=== PATIENT | male | born 1935 | race Caucasian/White ===

== ENCOUNTER 2017-07-23 13:18 | Inpatient (IN) | payer MEDICARE, OTHER ==
[~2017-07-23] VITALS: Ht 175.3 cm; Wt 75.0 kg
[2017-07-23 13:32] VITALS: Ht 175.3 cm; Wt 75.0 kg
[2017-07-23] MEDS: SOD CHLORIDE 0.9% 1,000 ML IV STA ×2 (13:37→16:14)
[2017-07-23 14:02] LABS: BASOPHILS % 0.1 % (0.0-2.0); EOSINOPHILS # 0.1 10^3/ul (0.0-0.5); EOSINOPHILS % 0.9 % (0.0-7.0); HEMATOCRIT 23.9 % (42.0-52.0); LYMPHOCYTES # 0.9 10^3/ul (0.8-2.9); LYMPHOCYTES % 9.9 % (15.0-51.0); MEAN CORPUSCULAR HEMOGLOBIN 27.7 pg (29.0-33.0); MEAN CORPUSCULAR HGB CONC 33.5 g/dl (32.0-37.0); MEAN CORPUSCULAR VOLUME 82.7 fl (82.0-101.0); MEAN PLATELET VOLUME 9.6 fl (7.4-10.4); MONOCYTE # 0.6 10^3/ul (0.3-0.9); MONOCYTES % 6.9 % (0.0-11.0); NEUTROPHIL # 7.1 10^3/ul (1.6-7.5); NEUTROPHILS % 81.5 % (39.0-77.0); PLATELET COUNT 288 10^3/UL (140-415); RED BLOOD COUNT 2.89 10^6/ul (4.70-6.10); RED CELL DISTRIBUTION WIDTH 15.3 % (11.5-14.5); WHITE BLOOD COUNT 8.7 10^3/ul (4.8-10.8)
[2017-07-23 14:18] LABS: INR 1.13; PROTIME 14.7 Sec (11.9-14.9); PT RATIO 1.1
[2017-07-23 14:19] LABS: PARTIAL THROMBOPLASTIN TIME 35.6 Sec (25.0-35.0)
[2017-07-23 14:20] LABS: CREATININE 3.67 mg/dl (0.61-1.24); POTASSIUM 4.5 mmol/L (3.5-5.1)
[2017-07-23 14:32] LABS: TROPONIN-I 0.107 ng/ml (0.00-0.12)
--- NOTE | 2017-07-23 14:48 | RADRPT ---
PROCEDURE: XR Chest. CLINICAL INDICATION: Syncope. TECHNIQUE: Single frontal view. COMPARISON: None. FINDINGS: There is atelectasis at the lung bases. The lungs are otherwise clear. The heart is enlarged. There is calcification in the aorta consistent with atherosclerosis. There are small bilateral pleural effusions. There is no pneumothorax. IMPRESSION: 1. Atelectasis at the lung bases. 2. Cardiomegaly and atherosclerosis. 3. Small bilateral pleural effusions. 4. Otherwise unremarkable chest radiograph. RPTAT: QQ .Rogers Vaughn MD, MD Date Time Electronically viewed and signed by .Rogers Vaughn MD, MD on 07/23/2017 14:47 .R/
[2017-07-23] MEDS ORDERED: RANI150T5 PO (16:08)
[2017-07-23] MEDS ORDERED: GLYB5TAB3 PO (16:08)
[2017-07-23] MEDS ORDERED: TAMS0.4C2 PO (16:09)
[2017-07-23] MEDS ORDERED: SITA1TBM7 PO (16:10)
[2017-07-23] MEDS ORDERED: CANA300T PO (16:10)
[2017-07-23] MEDS ORDERED: LIDOCAINE 1% (MPF) 5 ML VIAL SC ONE (16:30)
[2017-07-23 16:38] LABS: ADD UMIC YES; UR ASCORBIC ACID NEGATIVE (NEGATIVE); UR BILIRUBIN (Dip) NEGATIVE (NEGATIVE); UR BLOOD (Dip) 1+ mg/dL (NEGATIVE); UR CLARITY TURBID (CLEAR); UR COLOR YELLOW (YELLOW); UR GLUCOSE (Dip) NEGATIVE (NEGATIVE); UR KETONES (Dip) NEGATIVE (NEGATIVE); UR LEUKOCYTE ESTERASE (Dip) 1+ Leu/ul (NEGATIVE); UR NITRITE (Dip) NEGATIVE (NEGATIVE); UR SPECIFIC GRAVITY (Dip) 1.012 (1.003-1.030); UR TOTAL PROTEIN (Dip) 2+ mg/dl (NEGATIVE); UR UROBILINOGEN (Dip) NEGATIVE (NEGATIVE)
[2017-07-23 16:43] LABS: UR BACTERIA MANY /HPF (NONE SEEN); UR SQUAMOUS EPITHELIAL CELL MANY /HPF (FEW)
[2017-07-23 16:47] LABS: UR RBC > 182 /HPF (0-5)
[2017-07-23] MEDS ORDERED: LEVOFLOXACIN 500MG/D5W (PMX) 100 ML IVPB STA (17:44)
[2017-07-23] MEDS ORDERED: CEFEPIME 2GM/50 ML (PMX) 50 ML IVPB STA (17:44)
[2017-07-23] MEDS ORDERED: SOD CHLORIDE 0.9% 1,000 ML IV STA (17:45)
--- NOTE | 2017-07-23 18:08 | ERD ---
ER Documentation Chief Complaint Chief Complaint pt was dizzy and fell HPI This 82-year-old male who is here for follow-up. The patient states he got up was walking across the room when he got dizzy and fell. He said he fell on the carpet hitting his forehead. The patient recalls the feeling of falling as well as hitting the floor. He says he does not think he was knocked unconscious but if he was of may be just for 1 or 2 seconds. Denies any headache neck pain cough fever abdominal pain chest pain shortness of breath. He is a very poor historian. ROS All systems reviewed and are negative except as per history of present illness. Medications Home Meds Reported Medications Canagliflozin (Invokana) 300 Mg Tablet, 300 MG PO DAILY, TAB 07/23/17 Sitagliptin Phos-Metformin Hcl (Janumet XR) 100-1,000 Mg Tbmp.24hr, 1 TAB PO WITH DINNER, #30 TAB 07/23/17 Tamsulosin Hcl* (Tamsulosin Hcl*) 0.4 Mg Cap.er.24h, 0.4 MG PO DAILY, CAP 07/23/17 Ranitidine Hcl* (Ranitidine Hcl*) 150 Mg Tablet, 150 MG PO HS, #30 TAB 07/23/17 Glyburide* (Glyburide*) 5 Mg Tablet, 5 MG PO WITH BREAKFAST, #30 TAB 07/23/17 Allergies Allergies: Coded Allergies: No Known Allergy (Unverified , 07/23/17) PMhx/Soc Medical and Surgical Hx: pt denies Surgical Hx Hx Alcohol Use: No Hx Substance Use: No Hx Tobacco Use: No Smoking Status: Former smoker FmHx Family History: No coronary disease Physical Exam Vitals Vital Signs Date Time Temp Pulse Resp B/P Pulse Ox O2 Delivery O2 Flow Rate FiO2 07/23/17 18:25 98.8 57 18 81/53 Room Air 57 07/23/17 17:25 82 18 75/50 97 Room Air 80 79/48 82 85/51 07/23/17 16:53 82 18 75/50 97 Room Air 80 79/48 82 85/51 07/23/17 14:03 98.0 89 18 89/44 100 Room Air 07/23/17 13:32 97.8 95 18 84/55 97 Physical Exam Const: Well-developed, well-nourished Head: Carpet burn abrasion to the forehead normocephalic Eyes: Normal Conjunctiva, PERRLA, EOMI, normal sclera, no nystagmus ENT: Normal External Ears, Nose and Mouth, moist mucus membranes. Neck: Full range of motion. No meningismus, no lymphadenopathy. Resp: Clear to auscultation bilaterally, no wheezing, rhonchi, rales Cardio: Regular rate and rhythm, no murmurs, S1 S2 present Abd: Soft, non tender x 4, non distended. Normal bowel sounds, no guarding or rebound, no pulsitile abdominal masses or bruits Skin: No petechiae or rashes, no ecchymosis , no maculopapular rash Back: No midline or flank tenderness Ext: No cyanosis, or edema, FROM x 4, normal inspection, neurovascularly intact x 4 Neur: Awake and alert, STR 5/5 x 4, sensation intact x 4, no focal findings, cerebellum intact Psych: Normal Mood and Affect Result Diagram: 07/23/17 1355 07/23/17 1355 Results 24 hrs Laboratory Tests Test 07/23/17 13:55 07/23/17 16:20 07/23/17 17:49 07/23/17 18:40 White Blood Count 8.710^3/ul Red Blood Count 2.8910^6/ul Hemoglobin 8.0g/dl Hematocrit 23.9% Mean Corpuscular Volume 82.7fl Mean Corpuscular Hemoglobin 27.7pg Mean Corpuscular Hemoglobin Concent 33.5g/dl Red Cell Distribution Width 15.3% Platelet Count 87701^3/UL Mean Platelet Volume 9.6fl Neutrophils % 81.5% Lymphocytes % 9.9% Monocytes % 6.9% Eosinophils % 0.9% Basophils % 0.1% Nucleated Red Blood Cells % 0.0/100WBC Neutrophils # 7.110^3/ul Lymphocytes # 0.910^3/ul Monocytes # 0.610^3/ul Eosinophils # 0.110^3/ul Basophils # 0.010^3/ul Nucleated Red Blood Cells # 0.010^3/ul Prothrombin Time 14.7Sec Prothrombin Time Ratio 1.1 INR International Normalized Ratio 1.13 Activated Partial Thromboplast Time 35.6Sec Sodium Level 127mmol/L Potassium Level 4.5mmol/L Chloride Level 97mmol/L Carbon Dioxide Level 19mmol/L Anion Gap 16 Blood Urea Nitrogen 71mg/dl Creatinine 3.67mg/dl Glucose Level 330mg/dl Calcium Level 8.0mg/dl Troponin I 0.107ng/ml Urine Color YELLOW Urine Clarity TURBID Urine pH 5.0 Urine Specific [place] 1.012 Urine Ketones NEGATIVEmg/dL Urine Nitrite NEGATIVEmg/dL Urine Bilirubin NEGATIVEmg/dL Urine Urobilinogen NEGATIVEmg/dL Urine Leukocyte Esterase 1+[place]ou/ul Urine Microscopic RBC > 182/HPF Urine Microscopic WBC > 182/HPF Urine Squamous Epithelial Cells MANY/HPF Urine Bacteria MANY/HPF Urine Hemoglobin 1+mg/dL Urine Glucose NEGATIVEmg/dL Urine Total Protein 2+mg/dl Bedside Glucose 291mg/dL Lactic Acid Level 2.9mmol/L Current Medications Medications (Trade) Dose Ordered Sig/[place] Route PRN Reason Start Time Stop Time Status Last Admin Dose Admin Sodium Chloride (NS) 1,000 ml @ 1,000 mls/hr Q1H STAT IV 07/23/17 13:37 07/23/17 14:36 DC 07/23/17 16:14 Lidocaine 5 ml 5 ml ONCE ONCE SC 07/23/17 16:30 07/23/17 16:31 DC Cefepime HCl 50 ml @ 100 mls/hr ONCE STAT IVPB 07/23/17 17:44 07/23/17 18:13 DC 07/23/17 18:24 Levofloxacin/ Dextrose 100 ml @ 100 mls/hr ONCE STAT IVPB 07/23/17 17:44 07/23/17 18:43 DC 07/23/17 19:22 Sodium Chloride (NS) 1,000 ml @ 1,000 mls/hr Q1H STAT IV 07/23/17 17:45 07/23/17 18:44 DC 07/23/17 18:09 Sodium Chloride (NS) 2,330 ml BOLUS OVER 2 HOURS STAT IV* 07/23/17 19:23 07/23/17 19:25 DC 07/23/17 19:48 Procedures/MDM PROCEDURE: XR Chest. CLINICAL INDICATION: Syncope. TECHNIQUE: Single frontal view. COMPARISON: None. FINDINGS: There is atelectasis at the lung bases. The lungs are otherwise clear. The heart is enlarged. There is calcification in the aorta consistent with atherosclerosis. There are small bilateral pleural effusions. There is no pneumothorax. IMPRESSION: 1. Atelectasis at the lung bases. 2. Cardiomegaly and atherosclerosis. 3. Small bilateral pleural effusions. 4. Otherwise unremarkable chest radiograph. RPTAT: QQ .Rogers Vaughn MD, MD Date Time Electronically viewed and signed by .Rogers Vaughn MD, MD on 07/23/2017 14:47 .R/ CC: OSIRIS CHINCHILLA DO EKG: Rate/Rhythm: Sinus rhythm with premature atrial complex, left axis deviation, right bundle branch block, Q-wave in lead III, aVR QRS, ST, QT: NORMAL MI, QRS, QT] Impression: NORMAL EKG Patient's urinalysis is pure pus. Patient is afebrile no white count do not feel he septic but will send off a lactic acid. We will continue fluid resuscitation the patient has some severe prerenal azotemia/dehydration. Orthostatics demonstrated all low blood pressures. Patient's blood pressure is 85 systolic after 1 L will give 1 more liter now We will admit for IV fluids antibiotic therapy and watch for sepsis develop Patient's lactate is 2.9 do not feel he is septic however. He has no fever no white count. Will admit him for severe urinary tract infection with near syncope. Does have severe prerenal azotemia/dehydration with renal failure. He received cultures and antibiotics and sepsis fluids Does not meet sepsis criteria. Departure Diagnosis: Primary Impression: Hypotension Hypotension type: unspecified hypotension type Qualified Code: I95.9 - Hypotension, unspecified hypotension type Additional Impressions: Urinary tract infection Urinary tract infection type: site unspecified Hematuria presence: without hematuria Qualified Code: N39.0 - Urinary tract infection without hematuria, site unspecified Renal failure Renal failure chronicity: unspecified chronicity Qualified Code: N19 - Renal failure, unspecified chronicity Condition: Fair OSIRIS CHINCHILLA DO Jul 23, 2017 18:08
[2017-07-23] MEDS ORDERED: SODIUM CHLORIDE 0.9% 1L BAG IV* STA (19:23)
[2017-07-23] MEDS ORDERED: SOD CHLORIDE 0.9% 1,000 ML IV SCH (20:09)
[2017-07-23] MEDS ORDERED: ACETAMINOPHEN 325 MG TAB PO PRN (20:30)
[2017-07-23] MEDS ORDERED: ONDANSETRON 4 MG INJ IV PRN (20:30)
[2017-07-23 22:21] VITALS: TEMP 98.1
[2017-07-23] MEDS ORDERED: LORAZEPAM 2 MG INJ IV ONE (22:30)
[2017-07-23 23:05] VITALS: PULSE 102
[2017-07-23 23:45] VITALS: BP 101/60; RESP 18
[2017-07-24] VITALS (10 sets, daily range): BP systolic 91–102; BP diastolic 52–62; PULSE 95–107; RESP 18–20
[2017-07-24] MEDS: SOD CHLORIDE 0.9% 1,000 ML IV SCH ×3 (02:02→22:57)
[2017-07-24] MEDS ORDERED: ACETAMINOPHEN 325 MG TAB PO PRN (05:30)
[2017-07-24] MEDS ORDERED: morphine 2 MG INJ IV PRN (05:30)
[2017-07-24] MEDS ORDERED: SOD CHLORIDE 0.9% 500 ML IV ONE (05:30)
[2017-07-24] MEDS ORDERED: NACL 0.9% 3 ML SYG IV SCH (05:30)
[2017-07-24] MEDS ORDERED: ONDANSETRON 4 MG INJ IV PRN (05:30)
--- NOTE | 2017-07-24 08:13 | RADRPT ---
PROCEDURE: CT Brain without contrast. CLINICAL INDICATION: Syncope. TECHNIQUE: A CT of the brain was performed on multidetector high-resolution CT scanner utilizing a xial sections from the skull base through the vertex without contrast. One or more of the following dose reduction techniques were used: Automated exposure control, Adjustment of the mA and/or kV acc ording to patient size, and/or use of iterative reconstruction technique. DICOM images are available . DOSE: CTDI = 43 mGy and the DLP = 720 mGy-cm. COMPARISON: None available FINDINGS: Left middle cranial fossa arachnoid cyst. Right temporal cortical encephalomalacia. Chronic bilatera l basal ganglia , left thalamic, and bilateral cerebellar lacunar infarcts. No acute intracranial he morrhage, significant mass effect or midline shift. Patchy hypoattenuation of the cerebral white mat ter is compatible with chronic microvascular ischemic changes. Vascular calcifications. Prominence o f the cortical sulci and ventricles are related to mild to moderate cerebral volume loss. No signif icant opacification of the visualized paranasal sinuses or mastoids. IMPRESSION: 1. No acute intracranial hemorrhage or mass effect. 2. 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 3. Right temporal cortical encephalomalacia is probably a sequela of prior trauma and/or infarct. 4. Chronic bilateral basal ganglia , left thalamic, and bilateral cerebellar lacunar infarcts. RPTAT: QQ .Rogers Vaughn MD, MD Date Time Electronically viewed and signed by .Rogers Vaughn MD, on 07/24/2017 08:12 .R/
[2017-07-24] MEDS ORDERED: CEFEPIME 1GM/50 ML (PMX) 50 ML IVPB SCH (09:00)
[2017-07-24] MEDS: HEPARIN 5,000 UNIT/0.5 ML VIAL SC SCH ×2 (09:12→20:30)
[2017-07-24] MEDS: INSULIN ASPART [NOVOLOG] 3 ML PEN SC SCH ×4 (09:13→20:27)
[2017-07-24] MEDS: INSULIN GLARGINE [LANtus] 3 ML PEN SC SCH (09:13)
--- NOTE | 2017-07-24 09:44 | RADRPT ---
PROCEDURE: Renal US. CLINICAL INDICATION: Renal dysfunction. TECHNIQUE: Multiple sonographic images of the kidneys and urinary bladder were obtained. The imag es were reviewed on a PACS workstation. COMPARISON: No prior studies are available for comparison. FINDINGS: The right kidney measures 11.0 x 4.0 x 5.0 cm. The left kidney measures 11.5 x 6.4 x 5.0 cm. There is no solid renal mass. There are benign left renal cysts with the largest measuring 3.1 cm in maximal dimension. There is no hydronephrosis. There is no right renal calculus. There are several nonobstructing left renal calculi with the large st measuring 0.5 cm. Renal parenchymal thickness is normal bilaterally. Both kidneys are hyperechoic consistent with medical renal disease. The perirenal regions are normal with no fluid collection or mass. There is a large amount of debris or blood products in the bladder. IMPRESSION: 1. Benign left renal cysts. 2. Nonobstructing left renal calculi. 3. Bilateral hyperechoic kidneys consistent with medical renal disease. 4. Large amount of debris or blood products in the bladder. RPTAT: QQ .Rogers Vaughn MD, Date Time Electronically viewed and signed by .Rogers Vaughn MD, MD on 07/24/2017 09:44 .R/
--- NOTE | 2017-07-24 09:48 | HP ---
Date/Time of Note Date/Time of Note DATE: 07/24/17 TIME: 09:38 Assessment/Plan VTE Prophylaxis VTE Prophylaxis Intervention: SCD's Lines/Catheters IV [facility]ter [facility]from [facility] Urinary Cath still in place: Yes Assessment/Plan Assessment/Plan 1. s/p fall, with superficial head injury -Patient was hypotensive on presentation to the ER and hemoglobin of 8. Patient denied hematemesis or dark stool or bright red blood per rectum -Plan is to continue IV fluid, a workup for a possible GI bleed and as such we will place a GI consult and check FOBT. We will also check for iron deficiency -Head CT was negative for any acute findings, will order a 2D echo and bilateral carotid Doppler ultrasound -Physical therapy evaluation -Treat UTI 2. Presumed acute kidney injury -IV fluid -Renal ultrasound and nephrology consult -Treat UTI -Continue Pagan and Flomax for his BPH 3. UTI -IV fluid -Follow-up culture results 4. Anemia -See #1 5. Type 2 diabetes -Check A1c Insulin while in-house 6. 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 He said he felt dizzy and as a result he fell down heating his forehead against the concrete. He denied loss of consciousness. He also denied focal weakness, chest pain, shortness of breath. When he presented to the ER, he was hypotensive with the lowest blood pressure documented being 79/48. Labs shows hemoglobin of 8, bicarb 19, creatinine 3.7 and a BUN 71. Initial lactic acid was 2.9 with repeat being 1.6. He denied history of kidney disease. His urine was noted to be pretty much all pus. Urinalysis is consistent with UTI. CT of the head was negative for acute findings. PMH/Family/Social Social History Smoking Status: Former smoker Exam/Review of Systems Vital Signs Vitals Vital Signs Date Time Temp Pulse Resp B/P Pulse Ox O2 Delivery O2 Flow Rate FiO2 07/24/17 08:13 97 07/24/17 08:04 97.5 18 96/52 95 07/23/17 22:21 Room Air Intake and Output 07/23/17 07/23/17 07/24/17 15:00 23:00 07:00 Intake Total 200 ml Balance 200 ml Exam Constitutional: other (Was a sleepy but fully arousable. Was answering questions appropriately even though slowly) Head: other (Swelling and erythema in the left forehead) Eyes: EOMI, PERRL Respiratory: clear to auscultation, normal air movement Cardiovascular: nl pulses, regular rate and rhythm Gastrointestinal: soft Extremities: normal pulses Neurological: nl strength Labs Result Diagram: 07/23/17 1355 07/23/17 1355 Medications Medications Current Medications Sodium Chloride (NS) 1,000 ml @ 100 mls/hr Q10H IV Last administered on 02:02; Admin Dose 100 MLS/HR; Start 07/24/17 at 02:00 Ondansetron HCl (Zofran Inj) 4 mg Q6H PRN IV NAUSEA AND/OR VOMITING; Start 07/24/17 at 05:30 Acetaminophen (Tylenol Tab) 650 mg Q6H PRN PO PAIN LEVEL 1-3 OR FEVER; Start 07/24/17 at 05:30 Morphine Sulfate (morphine) 2 mg Q4H PRN IV PAIN LEVEL 7-10; Start 07/24/17 at 05:30 Heparin Sodium (Porcine) (Heparin (5000 Units/0.5 ml)) 5,000 unit Q12 SC Last administered on 07/24/17 09:12; Admin Dose 5,000 UNIT; Start 07/24/17 at 09:00 Ranitidine HCl (Zantac) 150 mg HS PO ; Start 07/24/17 at 21:00 Tamsulosin HCl 0.4 mg 0.4 mg DAILY@21 PO ; Start 07/24/17 at 21:00 Cefepime HCl (Maxipime 1gm/50 ml (Pmx)) 50 ml @ 100 mls/hr Q12 IVPB Last administered on 07/24/17 09:08; Admin Dose 100 MLS/HR; Start 07/24/17 at 09:00 Diagnostic Test (Pha) (Accu-Chek) 1 ea 02 XX ; Start 07/25/17 at 02:00 Insulin Glargine (Lantus) 15 unit DAILY@08 SC Last administered on 12/6/17at 09 :13; Admin Dose 15 UNIT; Start 07/24/17 at 08:00 ARNOLD HUTCHISON MD Jul 24, 2017 09:48
--- NOTE | 2017-07-24 11:16 | RADRPT ---
PROCEDURE: Carotid ultrasound CLINICAL INDICATION: Syncope, carotid bruits TECHNIQUE: Iverson scale, color doppler, spectral doppler ultrasound of the bilateral carotid and amilcar tebral arteries. This study indirectly references the measurement of the distal ICA diameter as the denominator for s tenosis measurement. Validated velocity measurements with angiographic measurements, velocity criter ia are extrapolated from diameter data as defined by: *Cartoid artery stenosis: iverson-scale and Doppl er US diagnosis. Society of Radiologists in Ultrasound Consensus Conference. Radiology 2003; 229: 34 0-346. SRU Consensus Conference Criteria for the Diagnosis of Carotid Artery Stenosis* Degree of Stenosis, % ICA PSV, cm/sec Plaque Estimate, % ICA/CCA PSV Ratio Normal <125 None <2.0 <50 <125 <50 <2.0 50 69 125-230 >50 2.0-4.0 >70 but less than near occlusion >230 >50 <4.0 Near occlusion High, low, or undetectable Visible Variable Total occlusion Undetectable Visible, no detectable lumen Not applicable COMPARISON: No prior studies are available for comparison. FINDINGS: Location Right CCA66 - 78 cm/sec Prox ICA 60 cm/sec Mid ICA50 cm/sec Dist ICA51 cm/sec ECA75 cm/sec ICA/CCA0.9 Left CCA62 - 98 cm/sec Prox ICA 96 cm/sec Mid ICA70 cm/sec Dist ICA47 cm/sec ECA64 cm/sec ICA/CCA1.5 Plaque burden: Minimal plaque within the left carotid bulb does not produce flow acceleration. Antegrade flow is seen within the vertebral arteries bilaterally. IMPRESSION: No evidence of a hemodynamically significant carotid stenosis. RPTAT: AADD .Pablo Garcia MD, Date Time Electronically viewed and signed by .Pablo Garcia MD, on 07/24/2017 11:15 .B/
--- NOTE | 2017-07-24 11:44 | CONS ---
Date/Time of Note Date/Time of Note DATE: 07/24/17 TIME: 11:18 Assessment/Plan Assessment/Plan Chief Complaint/Hosp Course Summary Assessment and Plan: Assessment: Anemia Chronic disease vs acute LIDA S/p fall with head abrasion UTI- on antibiotics DM Presumed TANNER History of BPH Plan: Stool for OB Ct abd/pelvis without contrast (Cr. 3.67) Continue to monitor H/H Iron panel- ordered pending results will plan for EGD/colonoscopy Patient seen in collaboration with Dr. Dave Problems: Consultation Date/Type/Reason Admit Date/Time Jul 23, 2017 at 20:11 Date of Consultation: Jul 24, 2017 Type of Consultation: GI Reason for Consultation Anemia Hx of Present Illness This is an 82-year-old male with past medical history of diabetes (type 2) and BPH who presented to the ER after falling down and hitting his head. Imaging was obtained showing old CVA. Upon initial lab workup patient found to be anemic with a hemoglobin of 8.0 MCV 82.7, MCH 27.7, WBC 8.7, creatinine 3.67, lactic acid 2.9, urine was obtained and found to have a UTI, he is now on antibiotics. At the time evaluation patient denies nausea/vomiting, hematemesis , hematochezia, diarrhea, does complain of ongoing constipation, last BM 2 days ago described as normal. He has never had an upper endoscopy, his last colonoscopy was many years ago more than 10. Iron panel have been ordered and currently pending, will plan for CT abd/pelvis without contrast due to elevated creatinine, stool for OB, pending results of CT scan patient will likely need EGD and colonoscopy. Constitutional: no complaints Eyes: no complaints ENT: no complaints Respiratory: no complaints Cardiovascular: no complaints Gastrointestinal: constipation, flatus, No blood, No decreased appetite, No diarrhea, No nausea, No pain, No vomiting Genitourinary: No discharge, No dysuria, No flank pain Past Medical History Medical History: diabetes Past Surgical History Past Surgical Hx: endoscopy Social History Alcohol Use: none Smoking Status: Former smoker Drug Use: none Exam/Review of Systems Vital Signs Vitals Vital Signs Date Time Temp Pulse Resp B/P Pulse Ox O2 Delivery O2 Flow Rate FiO2 07/24/17 08:13 97 07/24/17 08:04 97.5 18 96/52 95 07/23/17 22:21 Room Air Intake and Output 07/23/17 07/23/17 07/24/17 14:59 22:59 06:59 Intake Total 200 ml Balance 200 ml Exam PHYSICAL EXAMINATION: GENERAL: Well developed, alert & oriented x 3, SKIN: No lesions, no stigmata chronic liver disease, no evidence of bleeding diathesis LYMPHATIC: No palpable lymphadenopathy. HEAD: Normocephalic, atraumatic, no tenderness. EYES: Pupils equal reactive to light and accommodation, full extraocular movements, sclera clear, non-icteric, no discharge. EARS/NOSE AND THROAT: Ears normal, nose normal, oropharynx normal, oral membranes well hydrated without lesions. NECK: Supple, no masses, CHEST: Inspection within normal limits. CARDIOVASCULAR: Heart: Regular rate and rhythm, no murmurs, gallops or rubs. GASTROINTESTINAL AND LIVER: Abdomen: Soft, non tenderness, non-distended, no hernias, no masses, no organomegaly, no ascites, no guarding, no rebound tenderness, normoactive bowel sounds. Rectal: Deferred. GENITOURINARY: Male genitalia within normal limits. EXTREMITIES: No cyanosis, clubbing or edema. Results Result Diagram: 07/23/17 1355 07/23/17 1355 Results 24 hrs Laboratory Tests Test 07/23/17 13:55 07/23/17 16:20 07/23/17 17:49 07/23/17 18:40 White Blood Count 8.7 Red Blood Count 2.89 L Hemoglobin 8.0 L Hematocrit 23.9 L Mean Corpuscular Volume 82.7 Mean Corpuscular Hemoglobin 27.7 L Mean Corpuscular Hemoglobin Concent 33.5 Red Cell Distribution Width 15.3 H Platelet Count 288 Mean Platelet Volume 9.6 Neutrophils % 81.5 H Lymphocytes % 9.9 L Monocytes % 6.9 Eosinophils % 0.9 Basophils % 0.1 Nucleated Red Blood Cells % 0.0 Neutrophils # 7.1 Lymphocytes # 0.9 Monocytes # 0.6 Eosinophils # 0.1 Basophils # 0.0 Nucleated Red Blood Cells # 0.0 Prothrombin Time 14.7 Prothrombin Time Ratio 1.1 INR International Normalized Ratio 1.13 Activated Partial Thromboplast Time 35.6 H Sodium Level 127 L Potassium Level 4.5 Chloride Level 97 Carbon Dioxide Level 19 L Anion Gap 16 Blood Urea Nitrogen 71 H Creatinine 3.67 H Glucose Level 330 H Calcium Level 8.0 L Troponin I 0.107 Urine Color YELLOW Urine Clarity TURBID A Urine pH 5.0 Urine Specific [place] 1.012 Urine Ketones NEGATIVE Urine Nitrite NEGATIVE Urine Bilirubin NEGATIVE Urine Urobilinogen NEGATIVE Urine Leukocyte Esterase 1+ H Urine Microscopic RBC > 182 H Urine Microscopic WBC > 182 H Urine Squamous Epithelial Cells MANY A Urine Bacteria MANY A Urine Hemoglobin 1+ H Urine Glucose NEGATIVE Urine Total Protein 2+ H Bedside Glucose 291 H Lactic Acid Level 2.9 *H Test 07/23/17 22:37 07/24/17 00:45 07/24/17 08:03 Lactic Acid Level 1.6 1.6 Bedside Glucose 242 H Medications Medications Current Medications Sodium Chloride (NS) 1,000 ml @ 100 mls/hr Q10H IV Last administered on 02:02; Admin Dose 100 MLS/HR; Start 07/24/17 at 02:00 Ondansetron HCl (Zofran Inj) 4 mg Q6H PRN IV NAUSEA AND/OR VOMITING; Start 07/24/17 at 05:30 Acetaminophen (Tylenol Tab) 650 mg Q6H PRN PO PAIN LEVEL 1-3 OR FEVER; Start 07/24/17 at 05:30 Morphine Sulfate (morphine) 2 mg Q4H PRN IV PAIN LEVEL 7-10; Start 07/24/17 at 05:30 Heparin Sodium (Porcine) (Heparin (5000 Units/0.5 ml)) 5,000 unit Q12 SC Last administered on 07/24/17 09:12; Admin Dose 5,000 UNIT; Start 07/24/17 at 09:00 Ranitidine HCl (Zantac) 150 mg HS PO ; Start 07/24/17 at 21:00 Tamsulosin HCl 0.4 mg 0.4 mg DAILY@21 PO ; Start 07/24/17 at 21:00 Cefepime HCl (Maxipime 1gm/50 ml (Pmx)) 50 ml @ 100 mls/hr Q12 IVPB Last administered on 07/24/17 09:08; Admin Dose 100 MLS/HR; Start 07/24/17 at 09:00 Diagnostic Test (Pha) (Accu-Chek) 1 ea 02 XX ; Start 07/25/17 at 02:00 Insulin Glargine (Lantus) 15 unit DAILY@08 SC Last administered on 07/24/17t 09 :13; Admin Dose 15 UNIT; Start 07/24/17 at 08:00 Copies To: CC: JONAS DAVE MD, VICTORIA Jul 24, 2017 11:30
[2017-07-24] MEDS ORDERED: POLYETHYLENE GLYCOL 17 GM PACKET PO PRN (12:00)
[2017-07-24] MEDS: GUAIFENESIN 20 MG/ML 5ML CUP PO PRN (13:16)
--- NOTE | 2017-07-24 13:39 | RADRPT ---
PROCEDURE: CT ABDOMEN AND PELVIS WITHOUT CONTRAST. CLINICAL INDICATION: Rule out colon mass TECHNIQUE: CT scan of the abdomen and pelvis without contrast was performed on a multidetector hig h-resolution CT scanner. The patient was scanned without intravenous contrast. Coronal and sagittal reformatted images were obtained from the axial source images. Images were reviewed on a high-resol [employer] PACS workstation. The total exam CTDI equals 12th mGy and the total exam DLP equals 718 mGy-cm . One or more of the following dose reduction techniques were used: Automated exposure control. Adjustment of the mA and/or kV according to patient size. Use of iterative reconstruction technique. DICOM images are available COMPARISON: None FINDINGS: CT abdomen: Bilateral lower lobe consolidation and pleural effusions are noted. Hepatic morphology is within limits. No gross contour deforming masses. The spleen and pancreas are within normal limits. Both adrenal glands are within normal limits. Both kidneys are in normal anatomic position. There is mild left-sided hydronephrosis and enlargemen t of the left kidney. There is lobulated appearance of the upper pole left kidney, containing severa l hypodensities . Underlying mass is not excluded. No gross renal/ureteric calculi. Mild right-sided hydronephrosis is noted as well. The visualized GI tract demonstrate normal caliber loops of small and large bowel. No evidence of geraldine wel obstruction. Stool filled loops of large bowel suggestive of constipation. Stool is noted within the right colon and multiple peripheral air is identified, which ends at the air-fluid interface, l ikely consistent with pseudo pneumatosis. Atherosclerotic calcification of the aorta is identified. No significant retroperitoneal lymphadenop athy. CT pelvis: The bladder is distended and there is thickening of the helm of the bladder. Prostate gland is enla rged, protruding in the base of the bladder measuring up to 5.5 cm. Quintana catheter balloon is noted within the penile urethra. Small amount of free fluid within the pelvis. The rectosigmoid colon demo nstrates stool. No significant pelvic lymphadenopathy. There is generalized anasarca. The visualized osseous structures demonstrates multilevel degenerative disease of the spine. IMPRESSION: 1. QUINTANA CATHETER BALLOON NOTED WITHIN THE PENILE URETHRA. RECOMMEND READJUSTMENT. No Quintana catheter noted within the bladder. 2. Distended bladder. Prostatmegaly protruding into the base of the bladder. There is thickening of the wall the bladder, likely secondary to chronic bladder outlet obstruction. 3. Mild bilateral hydronephrosis, likely secondary to chronic bladder outlet obstruction. The left k idney is abnormal in appearance, with mild enlargement and lobulated appearance of the upper pole le ft kidney, containing hypodensities. Cannot exclude the possibility of underlying mass. Recommend fo llow-up CT or MRI with IV contrast, following a renal protocol. 4. No evidence of bowel obstruction. Stool and air noted large bowel suggestive of constipation. No definitive colonic mass noted at this time. If clinical suspicion remains recommend follow-up colono scopy. 5. Diffuse atherosclerosis of the aorta. 6. Generalized anasarca. 7. Bilateral lower lobe consolidation and moderate to large pleural effusions. Cardiomegaly. RPTAT: AARR Physician Lamin Date Time Electronically viewed and signed by Physician Lamin on 07/24/2017 13:39 RORY/
--- NOTE | 2017-07-24 13:43 | PN ---
Date/Time of Note Date/Time of Note DATE: 07/24/17 TIME: 13:34 Assessment/Plan VTE Prophylaxis VTE Prophylaxis Intervention: SCD's Lines/Catheters IV [facility]atheter [facility] (from [facility]): [place] Urinary Cath still in place: Yes Reason Cath still needed: urinary retention Assessment/Plan Chief Complaint/Hosp Course S: No acute events overnight, seen by GI team. 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 1. s/p fall, with superficial head injury - Patient was hypotensive on presentation to the ER and hemoglobin of 8. Patient denied hematemesis or dark stool or bright red blood per rectum.Head CT was negative for any acute findings , - continue IV fluid, appreciate GI consult and check FOBT. We will also check for iron deficiency -follow-up 2D echo and bilateral carotid Doppler ultrasound -Physical therapy evaluation -Treat UTI 2. Presumed acute kidney injury -IV fluid -Renal ultrasound and nephrology consult-pending -Treat UTI -Continue Pagan and Flomax for his BPH 3. UTI -IV fluid -Follow-up culture results 4. Anemia -See #1 -Per GI, will also order CT abdomen pelvis without contrast to further evaluate. -They will also consider EGD and colonoscopy in the next 24 hours 5. Type 2 diabetes -Follow-up A1c Insulin while in-house 6. History of BPH -Continue Flomax Problems: Exam/Review of Systems Vital Signs Vitals Vital Signs Date Time Temp Pulse Resp B/P Pulse Ox O2 Delivery O2 Flow Rate FiO2 07/24/17 12:22 95 07/24/17 11:55 97.4 20 91/53 96 07/23/17 22:21 Room Air Intake and Output 07/23/17 07/23/17 07/24/17 14:59 22:59 06:59 Intake Total 200 ml Balance 200 ml Results Result Diagram: 07/23/17 2084 07/23/17 1355 Results 24 hrs Laboratory Tests Test 07/23/17 13:55 07/23/17 16:20 07/23/17 17:49 07/23/17 18:40 White Blood Count 8.7 Red Blood Count 2.89 L Hemoglobin 8.0 L Hematocrit 23.9 L Mean Corpuscular Volume 82.7 Mean Corpuscular Hemoglobin 27.7 L Mean Corpuscular Hemoglobin Concent 33.5 Red Cell Distribution Width 15.3 H Platelet Count 288 Mean Platelet Volume 9.6 Neutrophils % 81.5 H Lymphocytes % 9.9 L Monocytes % 6.9 Eosinophils % 0.9 Basophils % 0.1 Nucleated Red Blood Cells % 0.0 Neutrophils # 7.1 Lymphocytes # 0.9 Monocytes # 0.6 Eosinophils # 0.1 Basophils # 0.0 Nucleated Red Blood Cells # 0.0 Prothrombin Time 14.7 Prothrombin Time Ratio 1.1 INR International Normalized Ratio 1.13 Activated Partial Thromboplast Time 35.6 H Sodium Level 127 L Potassium Level 4.5 Chloride Level 97 Carbon Dioxide Level 19 L Anion Gap 16 Blood Urea Nitrogen 71 H Creatinine 3.67 H Glucose Level 330 H Calcium Level 8.0 L Troponin I 0.107 Urine Color YELLOW Urine Clarity TURBID A Urine pH 5.0 Urine Specific [place] 1.012 Urine Ketones NEGATIVE Urine Nitrite NEGATIVE Urine Bilirubin NEGATIVE Urine Urobilinogen NEGATIVE Urine Leukocyte Esterase 1+ H Urine Microscopic RBC > 182 H Urine Microscopic WBC > 182 H Urine Squamous Epithelial Cells MANY A Urine Bacteria MANY A Urine Hemoglobin 1+ H Urine Glucose NEGATIVE Urine Total Protein 2+ H Bedside Glucose 291 H Lactic Acid Level 2.9 *H Test 07/23/17 22:37 07/24/17 00:45 07/24/17 08:03 07/24/17 11:38 Lactic Acid Level 1.6 1.6 Bedside Glucose 242 H 266 H Medications Medications Current Medications Sodium Chloride (NS) 1,000 ml @ 100 mls/hr Q10H IV Last administered on t 13:19; Admin Dose 100 MLS/HR; Start 07/24/17 at 02:00 Ondansetron HCl (Zofran Inj) 4 mg Q6H PRN IV NAUSEA AND/OR VOMITING; Start 07/24/17 at 05:30 Acetaminophen (Tylenol Tab) 650 mg Q6H PRN PO PAIN LEVEL 1-3 OR FEVER; Start 07/24/17 at 05:30 Morphine Sulfate (morphine) 2 mg Q4H PRN IV PAIN LEVEL 7-10; Start 07/24/17 at 05:30 Heparin Sodium (Porcine) (Heparin (5000 Units/0.5 ml)) 5,000 unit Q12 SC Last administered on 07/24/17 09:12; Admin Dose 5,000 UNIT; Start 07/24/17 at 09:00 Ranitidine HCl (Zantac) 150 mg HS PO ; Start 07/24/17 at 21:00 Tamsulosin HCl (Flomax) 0.4 mg DAILY@21 PO ; Start 07/24/17 at 21:00 Diagnostic Test (Pha) (Accu-Chek) 1 ea 02 XX ; Start 07/25/17 at 02:00 Insulin Glargine (Lantus) 15 unit DAILY@08 SC Last administered on 07/24/17 09 :13; Admin Dose 15 UNIT; Start 07/24/17 at 08:00 Polyethylene Glycol 17 gm 17 gm BID PRN PO constipation; Start 07/24/17 at 12: 00 Cefepime HCl (Maxipime 1gm/50 ml (Pmx)) 50 ml @ 100 mls/hr Q24H IVPB ; Start 07/25/17 at 09:00 Guaifenesin (Robitussin Liquid Cup) 200 mg Q4H PRN PO cough Last administered on 07/24/17 13:16; Admin Dose 200 MG; Start 07/24/17 at 13:30 JESSE TINOCO Jul 24, 2017 13:43
--- NOTE | 2017-07-24 14:03 | CONS ---
Date/Time of Note Date/Time of Note DATE: 07/24/17 TIME: 13:55 Assessment/Plan Assessment/Plan Additional Assessment/Plan 82 yo Male with 1) TANNER on CKD, Appears to have chronic outlet obstruction with mild B/L [place] 2) Renal Cyst with Chronic Kidney disease appearance on Renal US 3) Prostatomegaly 4) Urosepsis 5) B/l PNA 6) Lactic Acidosis 7) Severe Anemia 8) Hypotension 9) Pre Renal Azotemia, Dehydration 10) Hyponatremia CT shows quintana balloon in penile urethra Pt with Prostatomegaly and Chronic outlet obstruction Renal US shows CKD. RN instructed to remove quintana catheter at this time Urology consultation Agree with IVFS ON IV Abx Repeat chemistry in am Will cont to monitor UO Electrolyts and renal function NO acute indication for HD at this time. Discussed case with RN and Hospitalist. Consultation Date/Type/Reason Admit Date/Time Jul 23, 2017 at 20:11 Date of Consultation: Jul 24, 2017 Type of Consultation: Nephrology Reason for Consultation TANNER, CKD Referring Provider: JESSE TINOCO Hx of Present Illness 82-year-old male with BPH and type 2 diabetes mellitus, history of CVA who presented to the ER after falling down and hitting his head. Had felt dizzy prior to episdoe. and as a result No loss of consciousness. Denied focal weakness, chest pain, shortness of breath. In the ER, found to be hypotensive and anemic with hemoglobin. Also found to have\ creatinine 3.7 and BUN 71. Urinalysis is consistent with UTI. CT of the head was negative for acute findings. Nephrology consulted for TANNER. Past Medical History Medical History: diabetes Past Surgical History Past Surgical Hx: endoscopy Family History Significant Family History: no pertinent family hx Social History Alcohol Use: none Smoking Status: Former smoker Drug Use: none Exam/Review of Systems Vital Signs Vitals Vital Signs Date Time Temp Pulse Resp B/P Pulse Ox O2 Delivery O2 Flow Rate FiO2 07/24/17 12:22 95 07/24/17 11:55 97.4 20 91/53 96 07/23/17 22:21 Room Air Intake and Output 07/23/17 07/23/17 07/24/17 15:00 23:00 07:00 Intake Total 200 ml Balance 200 ml Exam Constitutional: alert, frail, oriented, No distress Psych: nl mood/affect, No anxiety Head: hematomas, normocephalic Eyes: EOMI, nl conjunctiva ENMT: No mucosa pink and moist Neck: No jvd Respiratory: crackles/rales, No diminished breath sounds, No labored breathing, No wheezing Cardiovascular: regular rate and rhythm, No edema Gastrointestinal: distended, non-tender, soft, No rebound or guarding, No tender Genitourinary - Male: other Musculoskeletal: nl extremities to inspection Neurological: [employer] II-XII intact, nl mental status, No confused, No lethargic Skin: No diaphoresis, No rash or lesions Results Result Diagram: 07/23/17 1355 07/23/17 1355 Results 24 hrs Laboratory Tests Test 07/23/17 16:20 07/23/17 17:49 07/23/17 18:40 07/23/17 22:37 Urine Color YELLOW Urine Clarity TURBID A Urine pH 5.0 Urine Specific [place] 1.012 Urine Ketones NEGATIVE Urine Nitrite NEGATIVE Urine Bilirubin NEGATIVE Urine Urobilinogen NEGATIVE Urine Leukocyte Esterase 1+ H Urine Microscopic RBC > 182 H Urine Microscopic WBC > 182 H Urine Squamous Epithelial Cells MANY A Urine Bacteria MANY A Urine Hemoglobin 1+ H Urine Glucose NEGATIVE Urine Total Protein 2+ H Bedside Glucose 291 H Lactic Acid Level 2.9 *H 1.6 Test 07/24/17 00:45 07/24/17 08:03 07/24/17 11:38 Lactic Acid Level 1.6 Bedside Glucose 242 H 266 H Imaging Free Text/Dictation CT abdomen IMPRESSION: 1. QUINTANA CATHETER BALLOON NOTED WITHIN THE PENILE URETHRA. RECOMMEND READJUSTMENT. No Quintana catheter noted within the bladder. 2. Distended bladder. Prostatmegaly protruding into the base of the bladder. There is thickening of the wall the bladder, likely secondary to chronic bladder outlet obstruction. 3. Mild bilateral hydronephrosis, likely secondary to chronic bladder outlet obstruction. The left kidney is abnormal in appearance, with mild enlargement and lobulated appearance of the upper pole left kidney, containing hypodensities. Cannot exclude the possibility of underlying mass. Recommend follow-up CT or MRI with IV contrast, following a renal protocol. 4. No evidence of bowel obstruction. Stool and air noted large bowel suggestive of constipation. No definitive colonic mass noted at this time. If clinical suspicion remains recommend follow-up colonoscopy. 5. Diffuse atherosclerosis of the aorta. 6. Generalized anasarca. 7. Bilateral lower lobe consolidation and moderate to large pleural effusions. Cardiomegaly. Medications Medications Current Medications Sodium Chloride (NS) 1,000 ml @ 100 mls/hr Q10H IV Last administered on 13:19; Admin Dose 100 MLS/HR; Start 07/24/17 at 02:00 Ondansetron HCl (Zofran Inj) 4 mg Q6H PRN IV NAUSEA AND/OR VOMITING; Start 07/24/17 at 05:30 Acetaminophen (Tylenol Tab) 650 mg Q6H PRN PO PAIN LEVEL 1-3 OR FEVER; Start 07/24/17 at 05:30 Morphine Sulfate (morphine) 2 mg Q4H PRN IV PAIN LEVEL 7-10; Start 07/24/17 at 05:30 Heparin Sodium (Porcine) (Heparin (5000 Units/0.5 ml)) 5,000 unit Q12 SC Last administered on 07/24/17 09:12; Admin Dose 5,000 UNIT; Start 07/24/17 at 09:00 Ranitidine HCl (Zantac) 150 mg HS PO ; Start 07/24/17 at 21:00 Tamsulosin HCl (Flomax) 0.4 mg DAILY@21 PO ; Start 07/24/17 at 21:00 Diagnostic Test (Pha) (Accu-Chek) 1 ea 02 XX ; Start 07/25/17 at 02:00 Insulin Glargine (Lantus) 15 unit DAILY@08 SC Last administered on 07/24/17 09 :13; Admin Dose 15 UNIT; Start 07/24/17 at 08:00 Polyethylene Glycol 17 gm 17 gm BID PRN PO constipation; Start 07/24/17 at 12: 00 Cefepime HCl (Maxipime 1gm/50 ml (Pmx)) 50 ml @ 100 mls/hr Q24H IVPB ; Start 07/25/17 at 09:00 Guaifenesin (Robitussin Liquid Cup) 200 mg Q4H PRN PO cough Last administered on 07/24/17 13:16; Admin Dose 200 MG; Start 07/24/17 at 13:30 Procedures Procedures Renal US IMPRESSION: 1. Benign left renal cysts. 2. Nonobstructing left renal calculi. 3. Bilateral hyperechoic kidneys consistent with medical renal disease. 4. Large amount of debris or blood products in the bladder. IMPRESSION: 1. Atelectasis at the lung bases. 2. Cardiomegaly and atherosclerosis. 3. Small bilateral pleural effusions. 4. Otherwise unremarkable chest radiograph. RPTAT: QQ .Rogers Vaughn MD, MD Date Time Electronically viewed and signed by .Rogers Vaughn MD, MD on 07/23/2017 14:47 CHICHI CORBETT MD Jul 24, 2017 14:03
--- NOTE | 2017-07-24 17:54 | RADRPT ---
Echocardiogram Report Patient Name: USMAN FISHER Gender: Male Date: 1935 Study Date: 24-Jul-2017 Professor Of Legal Studies: Nestor Obrien [facility] Location: 5558-A Ref. Physician: ARNOLD HUTCHISON Quality: Adequate Procedures: Transthoracic echocardiogram with complete 2D, M-Mode, and doppler examination. Indications: Hypotension. 2D/M Mode Doppler Measurement Value Normal Ranges Measurement Value Normal Ranges LVIDd 2D 4.5 3.5 - 5.6 cm AV Peak [place] 1.3 m/sec LVIDs 2D 3.9 2.1 - 4.1 cm AV Peak PG 6.0 mmHg FS 2D 13.2 % AI Peak PG 40.0 mmHg LVPWd 2D 1.5 0.6 - 1.1 cm AI Peak [place] 3.2 m/sec IVSd 2D 1.5 0.6 - 1.1 cm AI PHT 298.0 msec IVS/LVPW 2D 1.0 LVOT Peak [place] 0.7 m/sec AoR Diam 2D 3.8 2.0 - 3.7 cm LVOT Peak PG 2.0 mmHg LA/Ao 2D 1 0 - 1 MV E Peak [place] 0.6 m/sec EDV 2D 93.0 cm3 MV A Peak [place] 0.9 m/sec ESV 2D 60.7 cm3 MV E/A 0.7 LA Dimen 2D 4.2 2.3 - 4.0 cm MV Decel Time 123 msec MV E/A 0.7 TR Peak [place] 3.1 m/sec TR Peak PG 39.0 mmHg RVSP 42.0 mmHg Findings Left Ventricle: Normal left ventricular cavity size. Mild concentric left ventricular hypertrophy. Severe global left ventricular systolic dysfunction. Ejection fraction is visually estimated at 20 %. Tissue Doppler/Mitral Doppler indices are consistent with impaired relaxation (Stage I diastolic dysfunction). Right Ventricle: Normal right ventricular size. Normal right ventricular systolic function. Left Atrium: There is mild enlargement of left atrium. Right Atrium: The right atrium is normal in size. Mitral Valve: Normal appearance of the mitral valve. Mild to moderate mitral valve regurgitation. Aortic Valve: Aortic sclerosis without stenosis. Mild aortic valve regurgitation. Tricuspid Valve: Normal appearance of the tricuspid valve. Estimated peak PA systolic pressure 42 mmHg. There is mild tricuspid regurgitation. Pulmonic Valve: Pulmonic valve not well visualized. There is trace pulmonic regurgitation. Pericardium: Normal pericardium with no significant pericardial effusion. Left pleural effusion seen. Aorta: Normal aortic root. IVC: Normal size and normal respiratory collapse consistent with normal right atrial pressure. Conclusions 1.The left ventricle is normal in size with severely reduced systolic function. There is global hypokinesis. 2.Estimated left ventricular ejection fraction of 20-25%. 3.Mild to moderate mitral regurgitation. Electronically Signed By: Mor Ellis 24-Jul-2017 17:53:54 -0800 Patient Name: USMAN FISHER Study Date: 24-Jul-2017 [id number]
[2017-07-24 18:23] LABS: ADD UMIC YES; UR ASCORBIC ACID NEGATIVE (NEGATIVE); UR BILIRUBIN (Dip) NEGATIVE (NEGATIVE); UR BLOOD (Dip) 1+ mg/dL (NEGATIVE); UR CLARITY CLOUDY (CLEAR); UR COLOR YELLOW (YELLOW); UR GLUCOSE (Dip) 1+ mg/dL (NEGATIVE); UR KETONES (Dip) NEGATIVE (NEGATIVE); UR LEUKOCYTE ESTERASE (Dip) 3+ Leu/ul (NEGATIVE); UR NITRITE (Dip) NEGATIVE (NEGATIVE); UR RBC 2 /HPF (0-5); UR SPECIFIC GRAVITY (Dip) 1.009 (1.003-1.030); UR TOTAL PROTEIN (Dip) 1+ mg/dl (NEGATIVE); UR UROBILINOGEN (Dip) NEGATIVE (NEGATIVE)
[2017-07-24 18:54] LABS: PROSTATE SPECIFIC ANTIGEN 0.9 ng/ml (0.0-4.0)
[2017-07-24 19:18] LABS: POTASSIUM,URINE RANDOM 13.6 mmol/L (25-125)
[2017-07-24] MEDS: RANITIDINE 150 MG TAB PO SCH (20:29)
[2017-07-24] MEDS: TAMSULOSIN (SR) 0.4 MG CAP PO SCH (20:30)
--- NOTE | 2017-07-24 20:48 | CONS ---
Date/Time of Note Date/Time of Note DATE: 07/24/17 TIME: 20:30 Assessment/Plan Assessment/Plan Chief Complaint/Hosp Course 82-year-old male fell at home and came into the emergency room was found to have anemia and elevated creatinine. Renal ultrasound was done and that showed debris within the bladder. Nursing staff inserted a Quintana catheter however the CT scan done after that showed bilateral hydronephrosis and urinary retention and the balloon of the Quintana catheter inside the prostatic urethra. Therefore the Quintana catheter was removed. The patient himself is not very clear about his urological history but he is known to have a history of BPH and the CT scan did show a large prostate infected measure about [address] scan. I therefore inserted a 16 [place] coud catheter and drained the bladder the initial urine came out clear then it became very cloudy and very purulent at the end specimen was sent for culture and sensitivity. We will keep the Quintana catheter and continue the antibiotic and monitor his renal function. Hopefully with that his creatinine will improve. Also we will continue the tamsulosin and check his PSA. I will follow his urological problem with you and further recommendation depending on his response to the treatment. 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 He said he felt dizzy and as a result he fell down hitting his forehead against the concrete. He denied loss of consciousness. He also denied focal weakness, chest pain, shortness of breath. In the emergency room urine test showed that he had a urinary tract infection and he was hypotensive and anemic with a hemoglobin of 8 his creatinine was also elevated 3.0 . Because of that he had renal ultrasound and that showed: 1. Benign left renal cysts. 2. Nonobstructing left renal calculi. 3. Bilateral hyperechoic kidneys consistent with medical renal disease. 4. Large amount of debris or blood products in the bladder Therefore a urological consultation was requested. With a history that he had a CT scan of the abdomen and pelvis was done and that also showed the Quintana catheter to be in the prostatic urethra and the bladder distended and the patient had bilateral hydronephrosis . The Quintana catheter was then removed. Constitutional: disoriented, other (Patient complains about his head injury) Eyes: no complaints ENT: no complaints Respiratory: no complaints Cardiovascular: no complaints Gastrointestinal: no complaints Genitourinary: other (Suprapubic pain) Musculoskeletal: no complaints Skin: bruising, laceration (On the forehead) Endocrine: no complaints Past Medical History Medical History: diabetes, other (Anemia) Past Surgical History Past Surgical Hx: no surgical history, endoscopy Social History Alcohol Use: none Smoking Status: Former smoker Drug Use: none Exam/Review of Systems Vital Signs Vitals Vital Signs Date Time Temp Pulse Resp B/P Pulse Ox O2 Delivery O2 Flow Rate FiO2 07/24/17 20:00 104 07/24/17 15:46 97.6 20 102/58 96 07/23/17 22:21 Room Air Intake and Output 07/23/17 07/23/17 07/24/17 15:00 23:00 07:00 Intake Total 200 ml Balance 200 ml Exam Constitutional: alert Psych: confusion Head: normocephalic Eyes: nl conjunctiva ENMT: nl external ears & nose Neck: supple Respiratory: clear to auscultation, normal air movement Cardiovascular: No jugular venous distention (JVD) Gastrointestinal: soft Genitourinary - Male: other (Distended urinary bladder) Musculoskeletal: nl extremities to inspection Extremities: No calf tenderness, No tenderness Skin: laceration (Over the forehead) Results Result Diagram: 07/23/17 1355 07/23/17 1355 Results 24 hrs Laboratory Tests Test 07/23/17 22:37 07/24/17 00:45 07/24/17 08:03 07/24/17 11:38 Lactic Acid Level 1.6 1.6 Bedside Glucose 242 H 266 H Test 07/24/17 15:24 07/24/17 17:00 07/24/17 17:07 07/24/17 18:00 Alpha Fetoprotein 1.83 Carcinoembryonic Antigen 2.0 Prostate Specific Antigen 0.9 Urine Color YELLOW Urine Clarity CLOUDY A Urine pH 5.0 Urine Specific [place] 1.009 Urine Ketones NEGATIVE Urine Nitrite NEGATIVE Urine Bilirubin NEGATIVE Urine Urobilinogen NEGATIVE Urine Leukocyte Esterase 3+ H Urine Microscopic RBC 2 Urine Microscopic WBC 79 H Urine Hemoglobin 1+ H Urine Glucose 1+ H Urine Total Protein 1+ H Bedside Glucose 203 Urine Random Sodium 60 Urine Random Potassium 13.6 L Test 07/24/17 20:25 Bedside Glucose 174 Imaging Free Text/Dictation Renal ultrasound 1. Benign left renal cysts. 2. Nonobstructing left renal calculi. 3. Bilateral hyperechoic kidneys consistent with medical renal disease. 4. Large amount of debris or blood products in the bladder. CT scan of the abdomen and pelvis 1. QUIN[place]NA CATHETER BALLOON NOTED WITHIN THE PENILE URETHRA. RECOMMEND READJUSTMENT. No Quintana catheter noted within the bladder. 2. Distended bladder. Prostatmegaly protruding into the base of the bladder. There is thickening of the wall the bladder, likely secondary to chronic bladder outlet obstruction. 3. Mild bilateral hydronephrosis, likely secondary to chronic bladder outlet obstruction. The left kidney is abnormal in appearance, with mild enlargement and lobulated appearance of the upper pole left kidney, containing hypodensities. Cannot exclude the possibility of underlying mass. Recommend follow-up CT or MRI with IV contrast, following a renal protocol. 4. No evidence of bowel obstruction. Stool and air noted large bowel suggestive of constipation. No definitive colonic mass noted at this time. If clinical suspicion remains recommend follow-up colonoscopy. 5. Diffuse atherosclerosis of the aorta. 6. Generalized anasarca. 7. Bilateral lower lobe consolidation and moderate to large pleural effusions. Cardiomegaly. Medications Medications Current Medications Sodium Chloride (NS) 1,000 ml @ 100 mls/hr Q10H IV Last administered on t 13:19; Admin Dose 100 MLS/HR; Start 07/24/17 at 02:00 Ondansetron HCl (Zofran Inj) 4 mg Q6H PRN IV NAUSEA AND/OR VOMITING; Start 07/24/17 at 05:30 Acetaminophen (Tylenol Tab) 650 mg Q6H PRN PO PAIN LEVEL 1-3 OR FEVER; Start 07/24/17 at 05:30 Morphine Sulfate (morphine) 2 mg Q4H PRN IV PAIN LEVEL 7-10; Start 07/24/17 at 05:30 Heparin Sodium (Porcine) (Heparin (5000 Units/0.5 ml)) 5,000 unit Q12 SC Last administered on 07/24/17 09:12; Admin Dose 5,000 UNIT; Start 07/24/17 at 09:00 Ranitidine HCl (Zantac) 150 mg HS PO ; Start 07/24/17 at 21:00 Tamsulosin HCl (Flomax) 0.4 mg DAILY@21 PO ; Start 07/24/17 at 21:00 Diagnostic Test (Pha) (Accu-Chek) 1 ea 02 XX ; Start 07/25/17 at 02:00 Insulin Glargine (Lantus) 15 unit DAILY@08 SC Last administered on 07/24/17 09 :13; Admin Dose 15 UNIT; Start 07/24/17 at 08:00 Polyethylene Glycol 17 gm 17 gm BID PRN PO constipation; Start 07/24/17 at 12: 00 Cefepime HCl (Maxipime 1gm/50 ml (Pmx)) 50 ml @ 100 mls/hr Q24H IVPB ; Start 07/25/17 at 09:00 Guaifenesin (Robitussin Liquid Cup) 200 mg Q4H PRN PO cough Last administered on 07/24/17 13:16; Admin Dose 200 MG; Start 07/24/17 at 13:30 POPPY PACE MD Jul 24, 2017 20:41
--- NOTE | 2017-07-24 22:06 | CONS ---
DATE OF ADMISSION: 07/23/2017 DATE OF CONSULTATION: 07/24/2017 INFECTIOUS DISEASE CONSULTATION REASON FOR CONSULTATION: Antibiotic management. HISTORY OF PRESENT ILLNESS: Anson Shay is an 82-year-old male who comes in status post fall wit h superficial head injury and is being seen for antibiotic management. His past problems include: 1. Adult-onset diabetes mellitus. 2. BPH. 3. Old CVA. The patient presented to the ER after falling down and hitting his head. He felt dizzy before he fe ll down and hit his forehead on the concrete. He denied loss of consciousness. He also denied foca l weakness, chest pain or shortness of breath. In the emergency room, he was hypotensive with a blo od pressure of 79/48, hemoglobin was 8 and 23.9. As noted, his white count was 8.7, platelet count 288, BUN and creatinine 71/3.6, glucose random of 330 and sodium 127. Patient is on cefepime. His urine was noted to be pretty much pus. Urinalysis showed turbidity with leukocyte esterase 1+, micr oscopic WBCs, 182 white cells per high-power field with many bacteria, 2+ protein. His urine is jenna wing gram-negative rods. The patient is currently on cefepime, was on Levaquin previously. A chest x-ray shows atelectasis, cardiomegaly, small bilateral effusions. A CT scan of the brain, no acute intracranial hemorrhages or masses, chronic microvascular disease, right temporal cortical encephal omalacia, chronic bilateral basal ganglia, left thalamic and bilateral cerebellar lacunar infarcts. Renal ultrasound shows benign left renal cyst, nonobstructing left renal calculi, bilateral hyperec hoic kidneys and large amounts of debris of blood products in the bladder. A CT scan of the abdomen and the pelvis shows that the Pagan catheter balloon is noted within the penile urethra, recommend readjustment, distended bladder, mild bilateral hydronephrosis, left kidney is abnormal in appearanc e with mild enlargement and lobulated appearance of the upper left pole, left kidney containing hypo densities. Cannot exclude the possibility of underlying mass. Recommend followup CT or MRI with IV contrast following the renal protocol. No evidence of bowel obstruction. Stool and air noted. La rge bowel suggestive of constipation. No definitive colonic mass noted at this time. Diffuse ather osclerosis of the aorta, generalized anasarca, bilateral lower lobe consolidation, moderate to large pleural effusions. PAST MEDICAL HISTORY: Operations as outlined. FAMILY HISTORY: Noncontributory. SOCIAL HISTORY: He is a former smoker. He does not drink or abuse drugs. ALLERGIES: NONE TO PENICILLIN, SULFA OR FOODS. MEDICATIONS: Per chart. REVIEW OF SYSTEMS: As per HPI. PHYSICAL EXAMINATION: GENERAL: The patient is a well-developed, well-nourished, elderly male who is alert, responsive and in no acute distress. VITAL SIGNS: Stable. He is afebrile. SKIN: Without generalized rash. HEENT: Within normal limits. NECK: Supple. LYMPH NODES: None palpable. CHEST: Decreased breath sounds at the bases. HEART: Without murmur or gallop. ABDOMEN: Soft, nontender, without organosplenomegaly or masses. EXTREMITIES: Without cyanosis, clubbing or edema. RECTAL AND GENITAL: Deferred. NEUROLOGIC: No focal neurological abnormalities. IMPRESSION AND PLAN: The patient comes in probably with urinary tract infection with sepsis and sep tic shock. He has gram-negative rods in his urine. His blood cultures are pending. The results of the urine C and S are pending. I will dictate my findings to the hospitalist. Dictated By: BÁRBARA ROSS MD, JD/ROXY Conf#: [id number] DID#: [id number] CC: ARNOLD HUTCHISON MD;*End*
[2017-07-25] VITALS (33 sets, daily range): BP systolic 61–144; BP diastolic 34–70; PULSE 80–133; RESP 16–31
[2017-07-25] MEDS: ACCU-CHEK XX SCH (02:00)
[2017-07-25 07:37] LABS: BASOPHILS % 0.1 % (0.0-2.0); EOSINOPHILS # 0.1 10^3/ul (0.0-0.5); EOSINOPHILS % 0.7 % (0.0-7.0); LYMPHOCYTES # 0.9 10^3/ul (0.8-2.9); LYMPHOCYTES % 7.8 % (15.0-51.0); MEAN CORPUSCULAR HEMOGLOBIN 27.1 pg (29.0-33.0); MEAN CORPUSCULAR VOLUME 84.7 fl (82.0-101.0); MEAN PLATELET VOLUME 10.8 fl (7.4-10.4); MONOCYTE # 0.5 10^3/ul (0.3-0.9); MONOCYTES % 4.7 % (0.0-11.0); NEUTROPHIL # 9.8 10^3/ul (1.6-7.5); PLATELET COUNT 214 10^3/UL (140-415); RED BLOOD COUNT 2.95 10^6/ul (4.70-6.10); RED CELL DISTRIBUTION WIDTH 15.6 % (11.5-14.5); WHITE BLOOD COUNT 11.4 10^3/ul (4.8-10.8)
[2017-07-25] MEDS: INSULIN ASPART [NOVOLOG] 3 ML PEN SC SCH ×4 (07:46→20:33)
[2017-07-25] MEDS: INSULIN GLARGINE [LANtus] 3 ML PEN SC SCH (07:47)
[2017-07-25] MEDS: HEPARIN 5,000 UNIT/0.5 ML VIAL SC SCH (07:48)
[2017-07-25] MEDS: CEFEPIME 1GM/50 ML (PMX) 50 ML IVPB SCH (07:48)
[2017-07-25] MEDS: SOD CHLORIDE 0.9% 1,000 ML IV SCH ×2 (07:48→18:40)
[2017-07-25 07:54] LABS: ALBUMIN 2.2 g/dl (3.3-4.9); ALBUMIN/GLOBULIN RATIO 0.61; CALCIUM 7.9 mg/dl (8.4-10.2); CHOL/HDL RATIO 8.2 RATIO; CREATININE 2.2 mg/dl (0.61-1.24); MAGNESIUM 1.7 mg/dl (1.7-2.5); POTASSIUM 4.3 mmol/L (3.5-5.1); TOTAL PROTEIN 5.8 g/dl (6.1-8.1)
[2017-07-25 08:35] LABS: IRON 12 ug/dl (35-150)
[2017-07-25 08:44] LABS: TOTAL IRON BINDING CAPACITY 160 ug/dl (241-421)
--- NOTE | 2017-07-25 10:56 | PN ---
Date/Time of Note Date/Time of Note DATE: 07/25/17 TIME: 10:44 Assessment/Plan VTE Prophylaxis VTE Prophylaxis Intervention: SCD's Lines/Catheters IV Catheter Type (from Nrs): Peripheral IV Urinary Cath still in place: Yes Reason Cath still needed: urinary retention, other (indicate) Assessment/Plan Chief Complaint/Hosp Course Summary Assessment and Plan: Assessment: Anemia Chronic disease vs acute LIDA S/p fall with head abrasion UTI- on antibiotics DM Presumed TANNER History of BPH Plan: Stool for OB- pending Ct abd/pelvis- reviewed- Mild bilateral hydronephrosis, likely secondary to chronic bladder outlet obstruction, No evidence of bowel obstruction. Stool and air noted large bowel suggestive of constipation. No definitive colonic mass noted at this time. Continue to monitor H/H Iron panel- iron sat low, and serum level low EGD/colonoscopy tomorrow Discussed risk/benefits with patient who verbalized understanding Patient seen in collaboration with Dr. Dave Subjective: Course reviewed with nursing staff Patient interviewed and examined All labs, imaging and other results reviewed The patient resting in bed, discussed EGD/colon with patient who currently agrees to both procedures. No change in Hgb 8.0 will continue to monitor. PHYSICAL EXAMINATION: GENERAL: Well developed, alert & oriented x 3, SKIN: No lesions, no stigmata chronic liver disease, no evidence of bleeding diathesis LYMPHATIC: No palpable lymphadenopathy. HEAD: Normocephalic, atraumatic, no tenderness. EYES: Pupils equal reactive to light and accommodation, full extraocular movements, sclera clear, non-icteric, no discharge. EARS/NOSE AND THROAT: Ears normal, nose normal, oropharynx normal, oral membranes well hydrated without lesions. NECK: Supple, no masses, CHEST: Inspection within normal limits. CARDIOVASCULAR: Heart: Regular rate and rhythm, no murmurs, gallops or rubs. GASTROINTESTINAL AND LIVER: Abdomen: Soft, non tenderness, non-distended, no hernias, no masses, no organomegaly, no ascites, no guarding, no rebound tenderness, normoactive bowel sounds. Rectal: Deferred. GENITOURINARY: Male genitalia within normal limits. EXTREMITIES: No cyanosis, clubbing or edema. Problems: Exam/Review of Systems Vital Signs Vitals Vital Signs Date Time Temp Pulse Resp B/P Pulse Ox O2 Delivery O2 Flow Rate FiO2 12/7/17 08:08 133 07/25/17 07:58 97.8 20 144/66 97 07/23/17 22:21 Room Air Intake and Output 07/24/17 07/24/17 07/25/17 15:00 23:00 07:00 Intake Total 550 ml 1400 ml Output Total 700 ml 1650 ml Balance -150 ml -250 ml Results Result Diagram: 07/25/17 0659 07/25/17 0659 Results 24 hrs Laboratory Tests Test 07/24/17 11:38 07/24/17 15:24 07/24/17 17:00 07/24/17 17:07 Bedside Glucose 266 H 203 Alpha Fetoprotein 1.83 Carcinoembryonic Antigen 2.0 Prostate Specific Antigen 0.9 Urine Color YELLOW Urine Clarity CLOUDY A Urine pH 5.0 Urine Specific [place] 1.009 Urine Ketones NEGATIVE Urine Nitrite NEGATIVE Urine Bilirubin NEGATIVE Urine Urobilinogen NEGATIVE Urine Leukocyte Esterase 3+ H Urine Microscopic RBC 2 Urine Microscopic WBC 79 H Urine Hemoglobin 1+ H Urine Glucose 1+ H Urine Total Protein 1+ H Test 07/24/17 18:00 07/24/17 20:25 07/25/17 06:59 07/25/17 07:00 Urine Random Sodium 60 Urine Random Potassium 13.6 L Bedside Glucose 174 White Blood Count 11.4 #H Red Blood Count 2.95 L Hemoglobin 8.0 L Hematocrit 25.0 L Mean Corpuscular Volume 84.7 Mean Corpuscular Hemoglobin 27.1 L Mean Corpuscular Hemoglobin Concent 32.0 Red Cell Distribution Width 15.6 H Platelet Count 214 # Mean Platelet Volume 10.8 H Neutrophils % 86.0 H Lymphocytes % 7.8 L Monocytes % 4.7 Eosinophils % 0.7 Basophils % 0.1 Nucleated Red Blood Cells % 0.0 Neutrophils # 9.8 H Lymphocytes # 0.9 Monocytes # 0.5 Eosinophils # 0.1 Basophils # 0.0 Nucleated Red Blood Cells # 0.0 Sodium Level 138 Potassium Level 4.3 Chloride Level 110 # Carbon Dioxide Level 20 L Anion Gap 12 Blood Urea Nitrogen 47 #H Creatinine 2.20 #H Glucose Level 133 # Calcium Level 7.9 L Magnesium Level 1.7 Iron Level 12 L Total Iron Binding Capacity 160 L Percent Iron Saturation 8 L Ferritin 448.0 H Total Bilirubin 0.0 L Direct Bilirubin 0.00 Indirect Bilirubin 0.0 Aspartate Amino Transf (AST/SGOT) 12 L Alanine Aminotransferase (ALT/SGPT) 26 Alkaline Phosphatase 131 H Total Protein 5.8 L Albumin 2.2 L Globulin 3.60 H Albumin/Globulin Ratio 0.61 Triglycerides Level 216 H Cholesterol Level 124 LDL Cholesterol, Calculated 66 HDL Cholesterol 15 L Cholesterol/HDL Ratio 8.2 Hemoglobin A1c 7.6 H Test 07/25/17 07:45 Bedside Glucose 133 Medications Medications Current Medications Sodium Chloride (NS) 1,000 ml @ 100 mls/hr Q10H IV Last administered on 07:48; Admin Dose 100 MLS/HR; Start 07/24/17 at 02:00 Ondansetron HCl (Zofran Inj) 4 mg Q6H PRN IV NAUSEA AND/OR VOMITING; Start 07/24/17 at 05:30 Acetaminophen (Tylenol Tab) 650 mg Q6H PRN PO PAIN LEVEL 1-3 OR FEVER; Start 07/24/17 at 05:30 Morphine Sulfate (morphine) 2 mg Q4H PRN IV PAIN LEVEL 7-10; Start 07/24/17 at 05:30 Heparin Sodium (Porcine) (Heparin (5000 Units/0.5 ml)) 5,000 unit Q12 SC Last administered on 07/25/17 07:48; Admin Dose 5,000 UNIT; Start 07/24/17 at 09:00 Ranitidine HCl (Zantac) 150 mg HS PO Last administered on 07/24/17 20:29; Admin Dose 150 MG; Start 07/24/17 at 21:00 Tamsulosin HCl (Flomax) 0.4 mg DAILY@21 PO Last administered on 07/24/17 20:30 ; Admin Dose 0.4 MG; Start 07/24/17 at 21:00 Diagnostic Test (Pha) (Accu-Chek) 1 ea 02 XX ; Start 07/25/17 at 02:00 Insulin Glargine (Lantus) 15 unit DAILY@08 SC Last administered on 07/25/17 07 :47; Admin Dose 15 UNIT; Start 07/24/17 at 08:00 Polyethylene Glycol 17 gm 17 gm BID PRN PO constipation; Start 07/24/17 at 12: 00 Cefepime HCl (Maxipime 1gm/50 ml (Pmx)) 50 ml @ 100 mls/hr Q24H IVPB Last administered on 07/25/17 07:48; Admin Dose 100 MLS/HR; Start 07/25/17 at 09:00 Guaifenesin (Robitussin Liquid Cup) 200 mg Q4H PRN PO cough Last administered on 07/24/17 13:16; Admin Dose 200 MG; Start 07/24/17 at 13:30 ARUNA CAROLINA Jul 25, 2017 10:55
[2017-07-25] MEDS ORDERED: BISACODYL (EC) 5 MG TAB PO ONE (11:00)
--- NOTE | 2017-07-25 11:18 | PN ---
Date/Time of Note Date/Time of Note DATE: 07/25/17 TIME: 11:10 Assessment/Plan VTE Prophylaxis VTE Prophylaxis Intervention: SCD's Lines/Catheters IV C[facility]ter Type (from [facility]): Peripheral IV Urinary Cath still in place: Yes Reason Cath still needed: urinary retention Assessment/Plan Chief Complaint/Hosp Course S: Seen by GI, urology, renal teams. Still with purulent material coming into the Pagan bag from urine. No fevers overnight. 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 1. s/p fall, with superficial head injury - Patient was hypotensive on presentation to the ER and hemoglobin of 8. Patient denied hematemesis or dark stool or bright red blood per rectum.Head CT was negative for any acute findings , - continue IV fluid, appreciate GI consult and follow-up FOBT. -follow-up 2D echo and bilateral carotid Doppler ultrasound -Physical therapy continue -Treat UTI, follow-up infectious disease recommendations 2. Acute kidney injury -IV fluid -Follow-up renal recommendations -Treat UTI -Continue Pagan and Flomax for his BPH, follow-up urology recommendations 3. Sepsis secondary to UTI -urine culture shows enterococcus greater than 100, 000 colony-forming units. Lactic acid normal now. -IV fluids -Follow-up culture results, antibiotics 4. Anemia-also with low iron levels -Follow GI recommendations, holding anticoagulants, for EGD and colonoscopy in the next 24 hours -Iron IV 3 doses 5. Type 2 diabetes A1c equals 7.6 - Insulin while in-house 6. History of BPH -appreciate urology consult -Continue Flomax, Pagan catheter. 7. Low ejection fraction: See echocardiogram results below -We will get cardiology consult Problems: Exam/Review of Systems Vital Signs Vitals Vital Signs Date Time Temp Pulse Resp B/P Pulse Ox O2 Delivery O2 Flow Rate FiO2 07/25/17 08:08 133 07/25/17 07:58 97.8 20 144/66 97 07/23/17 22:21 Room Air Intake and Output 07/24/17 07/24/17 07/25/17 15:00 23:00 07:00 Intake Total 550 ml 1400 ml Output Total 700 ml 1650 ml Balance -150 ml -250 ml Results Result Diagram: 07/25/17 0659 07/25/17 0659 Results 24 hrs Laboratory Tests Test 07/24/17 11:38 07/24/17 15:24 07/24/17 17:00 07/24/17 17:07 Bedside Glucose 266 H 203 Alpha Fetoprotein 1.83 Carcinoembryonic Antigen 2.0 Prostate Specific Antigen 0.9 Urine Color YELLOW Urine Clarity CLOUDY A Urine pH 5.0 Urine Specific [place] 1.009 Urine Ketones NEGATIVE Urine Nitrite NEGATIVE Urine Bilirubin NEGATIVE Urine Urobilinogen NEGATIVE Urine Leukocyte Esterase 3+ H Urine Microscopic RBC 2 Urine Microscopic WBC 79 H Urine Hemoglobin 1+ H Urine Glucose 1+ H Urine Total Protein 1+ H Test 07/24/17 18:00 07/24/17 20:25 07/25/17 06:59 07/25/17 07:00 Urine Random Sodium 60 Urine Random Potassium 13.6 L Bedside Glucose 174 White Blood Count 11.4 #H Red Blood Count 2.95 L Hemoglobin 8.0 L Hematocrit 25.0 L Mean Corpuscular Volume 84.7 Mean Corpuscular Hemoglobin 27.1 L Mean Corpuscular Hemoglobin Concent 32.0 Red Cell Distribution Width 15.6 H Platelet Count 214 # Mean Platelet Volume 10.8 H Neutrophils % 86.0 H Lymphocytes % 7.8 L Monocytes % 4.7 Eosinophils % 0.7 Basophils % 0.1 Nucleated Red Blood Cells % 0.0 Neutrophils # 9.8 H Lymphocytes # 0.9 Monocytes # 0.5 Eosinophils # 0.1 Basophils # 0.0 Nucleated Red Blood Cells # 0.0 Sodium Level 138 Potassium Level 4.3 Chloride Level 110 # Carbon Dioxide Level 20 L Anion Gap 12 Blood Urea Nitrogen 47 #H Creatinine 2.20 #H Glucose Level 133 # Calcium Level 7.9 L Magnesium Level 1.7 Iron Level 12 L Total Iron Binding Capacity 160 L Percent Iron Saturation 8 L Ferritin 448.0 H Total Bilirubin 0.0 L Direct Bilirubin 0.00 Indirect Bilirubin 0.0 Aspartate Amino Transf (AST/SGOT) 12 L Alanine Aminotransferase (ALT/SGPT) 26 Alkaline Phosphatase 131 H Total Protein 5.8 L Albumin 2.2 L Globulin 3.60 H Albumin/Globulin Ratio 0.61 Triglycerides Level 216 H Cholesterol Level 124 LDL Cholesterol, Calculated 66 HDL Cholesterol 15 L Cholesterol/HDL Ratio 8.2 Hemoglobin A1c 7.6 H Test 07/25/17 07:45 Bedside Glucose 133 Medications Medications Current Medications Sodium Chloride (NS) 1,000 ml @ 100 mls/hr Q10H IV Last administered on 07:48; Admin Dose 100 MLS/HR; Start 07/24/17 at 02:00 Ondansetron HCl (Zofran Inj) 4 mg Q6H PRN IV NAUSEA AND/OR VOMITING; Start 07/24/17 at 05:30 Acetaminophen (Tylenol Tab) 650 mg Q6H PRN PO PAIN LEVEL 1-3 OR FEVER; Start 07/24/17 at 05:30 Morphine Sulfate (morphine) 2 mg Q4H PRN IV PAIN LEVEL 7-10; Start 07/24/17 at 05:30 Heparin Sodium (Porcine) (Heparin (5000 Units/0.5 ml)) 5,000 unit Q12 SC Last administered on 07/25/17 07:48; Admin Dose 5,000 UNIT; Start 07/24/17 at 09:00 Ranitidine HCl (Zantac) 150 mg HS PO Last administered on 07/24/17 20:29; Admin Dose 150 MG; Start 07/24/17 at 21:00 Tamsulosin HCl (Flomax) 0.4 mg DAILY@21 PO Last administered on 07/24/17 20:30 ; Admin Dose 0.4 MG; Start 07/24/17 at 21:00 Diagnostic Test (Pha) (Accu-Chek) 1 ea 02 XX ; Start 07/25/17 at 02:00 Insulin Glargine (Lantus) 15 unit DAILY@08 SC Last administered on 07/25/17 07 :47; Admin Dose 15 UNIT; Start 07/24/17 at 08:00 Polyethylene Glycol 17 gm 17 gm BID PRN PO constipation; Start 07/24/17 at 12: 00 Cefepime HCl (Maxipime 1gm/50 ml (Pmx)) 50 ml @ 100 mls/hr Q24H IVPB Last administered on 07/25/17 07:48; Admin Dose 100 MLS/HR; Start 07/25/17 at 09:00 Guaifenesin (Robitussin Liquid Cup) 200 mg Q4H PRN PO cough Last administered on 07/24/17 13:16; Admin Dose 200 MG; Start 07/24/17 at 13:30 Magnesium Citrate (Citroma) 300 ml ONCE ONCE PO ; Start 07/25/17 at 17:30; Stop 07/25/17 at 17:31 Polyethylene Glycol 119 gm 119 gm ONCE ONCE PO ; Start 07/25/17 at 18:30; Stop 07/25/17 at 18:31 Ferric Sodium Gluconate Complex/ Sodium Chloride (Ferrlecit/NS) 110 ml @ 100 mls/hr Q24H IVPB ; Start 07/25/17 at 11:30; Stop 07/27/17 at 12:35; Status UNV Procedures Procedures 2D echocardiogram: Conclusions 1. The left ventricle is normal in size with severely reduced systolic function. There is global hypokinesis. 2. Estimated left ventricular ejection fraction of 20-25%. 3. Mild to moderate mitral regurgitation. JESSE TINOCO Jul 25, 2017 11:18
[2017-07-25 11:54] LABS: AADO2 Arterial 114.7 mmHg (7.0-24.0); Allen Test ACCEPTAB; Arterial Base Excess -5.7 mmol/L (-3.0-3); Arterial COHb 0.3 % (0.0-3.0); Arterial Fraction of Oxyhgb 95.9 % (93.0-99.0); Arterial HCO3 18.1 mmol/L (22.0-26.0); Arterial MetHb 0.1 % (0.0-1.5); Arterial Total Hemglobin 8.2 g/dl (12.0-18.0); MODE NASAL CANNULA
[2017-07-25] MEDS ORDERED: SOD CHLORIDE 0.9% 500 ML IV ONE (12:00)
[2017-07-25] MEDS ORDERED: MAGNESIUM SULFATE 1 GM/D5W 100 ML IVPB ONE (13:00)
[2017-07-25] MEDS: SOD FERRIC GLUC COMPLX 125 MG in SOD CHLORIDE 0.9% 100 ML IVPB SCH (13:01)
--- NOTE | 2017-07-25 13:19 | RADRPT ---
Vent Rate: 89 bpm RR Interval: 0 msec [place] Interval: 188 msec QRS Duration: 122 msec QT Interval: 378 msec QTC Interval: 459 msec P-R-T [place]: 22 - -72 - 149 degrees Sinus rhythm with premature atrial complexes Left axis deviation Right bundle branch block Anterior infarct , age undetermined T wave abnormality, consider lateral ischemia Abnormal ECG Electronically Signed By: Jair Valdez [id number]
--- NOTE | 2017-07-25 13:25 | PN ---
DATE: 07/25/2017 SUBJECTIVE: The patient was transferred to ICU because he had a low blood pressure, currently alert , awake, and oriented. Follows commands and in no distress. VITAL SIGNS: Temperature 98.1, pulse 70, respirations 19, blood pressure 75/39, saturation 95%. LABORATORY DATA: WBC 11.4, H and H 8 and 25, platelet count 214, neutrophils 86. BUN 47, creatinin e 2.20. Normal electrolytes. MICROBIOLOGY: Urine culture growing enterococcus species and gram-negative rods. Blood cultures si nce admission negative. DIAGNOSTICS: CT abdomen and pelvis from yesterday revealed Pagan catheter. within penile ure thra with distended bladder and prostatomegaly protruding into the base of the bladder, mild bilater al hydronephrosis likely secondary to chronic bladder outlet obstruction, upper pole of the left kid myrna lobulated with mild enlargement, cannot exclude the possibility of underlying mass, no evidence of bowel obstruction, stool and air noted, large bowel suggestive of constipation. No colonic mass, generalized anasarca, bilateral lower lobe consolidation and moderate to large pleural effusions. Cardiomegaly. INDWELLINGS: The patient has Pagan catheter. ANTIMICROBIALS: He is on Cefepime. ALLERGIES: NONE. PHYSICAL EXAMINATION: GENERAL: This is a well-nourished, well-developed elderly white man who is alert, in no distress. HEENT: Head atraumatic, normocephalic. Sclerae anicteric. Buccal mucosa pink. NECK: Supple. CHEST: Rise symmetrical. Breath sounds clear. HEART: S1, S2. ABDOMEN: Soft, bowel tones present. EXTREMITIES: Without cyanosis. Trace edema. ASSESSMENT: 1. Sepsis with symptomatic hypotension. 2. Polymicrobial urinary tract infection with urine culture growing enterococcus and gram-negative rods. 3. Status post fall. 4. Malposition of Pagan catheter, urology on case, status post Pagan catheter adjusted. 5. Anemia. 6. Benign prostatic hypertrophy. 7. Diabetes. 8. Acute possibly on chronic kidney disease. PLAN: patient remains clinically stable. He is growing enterococcus and gram-negative rods in his urine. He is currently on cefepime. Cefepime usually does not have good coverage for enterococcus. We will change antibiotics to Zosyn and await final cultures. Dictated By: KORIN JOHNSON [employer] ARCHITECT CONSULTANT for BÁRBARA GILLESPIE/ROXY Conf#: [id number] DID#: [id number]
[2017-07-25] MEDS: PIPER-TAZO 2.25 GM (PMX) 50 ML IVPB SCH ×2 (14:22→21:13)
--- NOTE | 2017-07-25 14:42 | CONS ---
Date/Time of Note Date/Time of Note DATE: 07/25/17 TIME: 14:39 Assessment/Plan Assessment/Plan Additional Assessment/Plan 82 yo Male with 1) TANNER on CKD, Appears to have chronic outlet obstruction with mild B/L [place] 2) Renal Cyst with Chronic Kidney disease appearance on Renal US 3) Prostatomegaly 4) Urosepsis 5) B/l PNA 6) Lactic Acidosis 7) Severe Anemia 8) Hypotension 9) Pre Renal Azotemia, Dehydration 10) Hyponatremia Significant improvement in electrolytes and renal function after placement of blackman and relief of obstructin Cont with IVFS ON IV Abx Repeat chemistry in am Will cont to monitor UO Electrolyts and renal function Discussed case with RN and Hospitalist. Consultation Date/Type/Reason Admit Date/Time Jul 23, 2017 at 20:11 Initial Consult Date 07/24/17 Type of Consultation: Renal Referring Provider: ARNOLD HUTCHISON MD 24 HR Interval Summary Free Text/Dictation S/p Urology consultations, S/p placement of blackman, Pt was transferred to ICU for hypotension. Good UO reported. No IV pressors, on IVFS Constitutional: requiring O2 Exam/Review of Systems Vital Signs Vitals Vital Signs Date Time Temp Pulse Resp B/P Pulse Ox O2 Delivery O2 Flow Rate FiO2 07/25/17 14:00 82 25 93/46 100 Nasal Cannula 3.0 07/25/17 13:00 97.8 Intake and Output 07/24/17 07/24/17 07/25/17 15:00 23:00 07:00 Intake Total 550 ml 1400 ml Output Total 700 ml 1650 ml Balance -150 ml -250 ml Exam Constitutional: alert, frail, oriented, No distress Head: hematomas, normocephalic Eyes: EOMI ENMT: mucosa pink and moist Neck: No jvd Respiratory: crackles/rales, normal air movement, No diminished breath sounds, No labored breathing Cardiovascular: edema (trace), regular rate and rhythm Gastrointestinal: non-tender, soft, No distended, No rebound or guarding Genitourinary - Male: other (blackman) Musculoskeletal: nl extremities to inspection Neurological: INTERIOR DESIGN PROJECT MANAGER II-XII intact, nl mental status, No confused, No lethargic Skin: No diaphoresis Results Result Diagram: 07/25/17 0659 07/25/17 0659 Results 24 hrs Laboratory Tests Test 07/24/17 15:24 07/24/17 17:00 07/24/17 17:07 07/24/17 18:00 Alpha Fetoprotein 1.83 Carcinoembryonic Antigen 2.0 Prostate Specific Antigen 0.9 Urine Color YELLOW Urine Clarity CLOUDY A Urine pH 5.0 Urine Specific [place] 1.009 Urine Ketones NEGATIVE Urine Nitrite NEGATIVE Urine Bilirubin NEGATIVE Urine Urobilinogen NEGATIVE Urine Leukocyte Esterase 3+ H Urine Microscopic RBC 2 Urine Microscopic WBC 79 H Urine Hemoglobin 1+ H Urine Glucose 1+ H Urine Total Protein 1+ H Bedside Glucose 203 Urine Random Sodium 60 Urine Random Potassium 13.6 L Test 07/24/17 20:25 07/25/17 06:59 07/25/17 07:00 07/25/17 07:45 Bedside Glucose 174 133 White Blood Count 11.4 #H Red Blood Count 2.95 L Hemoglobin 8.0 L Hematocrit 25.0 L Mean Corpuscular Volume 84.7 Mean Corpuscular Hemoglobin 27.1 L Mean Corpuscular Hemoglobin Concent 32.0 Red Cell Distribution Width 15.6 H Platelet Count 214 # Mean Platelet Volume 10.8 H Neutrophils % 86.0 H Lymphocytes % 7.8 L Monocytes % 4.7 Eosinophils % 0.7 Basophils % 0.1 Nucleated Red Blood Cells % 0.0 Neutrophils # 9.8 H Lymphocytes # 0.9 Monocytes # 0.5 Eosinophils # 0.1 Basophils # 0.0 Nucleated Red Blood Cells # 0.0 Sodium Level 138 Potassium Level 4.3 Chloride Level 110 # Carbon Dioxide Level 20 L Anion Gap 12 Blood Urea Nitrogen 47 #H Creatinine 2.20 #H Glucose Level 133 # Calcium Level 7.9 L Magnesium Level 1.7 Iron Level 12 L Total Iron Binding Capacity 160 L Percent Iron Saturation 8 L Ferritin 448.0 H Total Bilirubin 0.0 L Direct Bilirubin 0.00 Indirect Bilirubin 0.0 Aspartate Amino Transf (AST/SGOT) 12 L Alanine Aminotransferase (ALT/SGPT) 26 Alkaline Phosphatase 131 H Total Protein 5.8 L Albumin 2.2 L Globulin 3.60 H Albumin/Globulin Ratio 0.61 Triglycerides Level 216 H Cholesterol Level 124 LDL Cholesterol, Calculated 66 HDL Cholesterol 15 L Cholesterol/HDL Ratio 8.2 Hemoglobin A1c 7.6 H Test 07/25/17 11:35 07/25/17 11:38 07/25/17 11:50 Bedside Glucose 115 Blood Gas Specimen Source Blood arterial Arterial Blood Date Drawn 07/25/2017 11:46:27 AM Arterial Blood pH (Temp corrected) 7.412 Arterial Blood pCO2 (Temp correct) 29.1 L Arterial Blood pO2 (Temp corrected) 86.6 Arterial Blood HCO3 18.1 L Arterial Blood Base Excess -5.7 L Arterial Blood Oxygen Saturation 96.3 Tyrese Test ACCEPTAB Arterial Blood Gas Puncture Site Right Radial Arterial Blood Carboxyhemoglobin 0.3 Arterial Blood Methemoglobin 0.1 Blood Gas A-a O2 Differential 114.7 H Oxyhemoglobin Percent 95.9 Total Hemoglobin 8.2 L Blood Gas Temperature 37.0 Blood Gas Modality NASAL CANNULA FiO2 33.0 Blood Gas Notified Whom AC Blood Gas Notified Time 07/25/2017 11:53:58 AM Lactic Acid Level 0.9 Medications Medications Current Medications Sodium Chloride (NS) 1,000 ml @ 100 mls/hr Q10H IV Last administered on 07:48; Admin Dose 100 MLS/HR; Start 07/24/17 at 02:00 Ondansetron HCl (Zofran Inj) 4 mg Q6H PRN IV NAUSEA AND/OR VOMITING; Start 07/24/17 at 05:30 Acetaminophen (Tylenol Tab) 650 mg Q6H PRN PO PAIN LEVEL 1-3 OR FEVER; Start 07/24/17 at 05:30 Morphine Sulfate (morphine) 2 mg Q4H PRN IV PAIN LEVEL 7-10; Start 07/24/17 at 05:30 Ranitidine HCl (Zantac) 150 mg HS PO Last administered on 07/24/17 20:29; Admin Dose 150 MG; Start 07/24/17 at 21:00 Tamsulosin HCl (Flomax) 0.4 mg DAILY@21 PO Last administered on 07/24/17 20:30 ; Admin Dose 0.4 MG; Start 07/24/17 at 21:00 Diagnostic Test (Pha) (Accu-Chek) 1 ea 02 XX ; Start 07/25/17 at 02:00 Insulin Glargine (Lantus) 15 unit DAILY@08 SC Last administered on 07/25/17 07 :47; Admin Dose 15 UNIT; Start 07/24/17 at 08:00 Polyethylene Glycol 17 gm 17 gm BID PRN PO constipation; Start 07/24/17 at 12: 00 Cefepime HCl (Maxipime 1gm/50 ml (Pmx)) 50 ml @ 100 mls/hr Q24H IVPB Last administered on 07/25/17 07:48; Admin Dose 100 MLS/HR; Start 07/25/17 at 09:00 Guaifenesin (Robitussin Liquid Cup) 200 mg Q4H PRN PO cough Last administered on 07/24/17 13:16; Admin Dose 200 MG; Start 07/24/17 at 13:30 Magnesium Citrate (Citroma) 300 ml ONCE ONCE PO ; Start 07/25/17 at 17:30; Stop 07/25/17 at 17:31 Polyethylene Glycol 119 gm 119 gm ONCE ONCE PO ; Start 07/25/17 at 18:30; Stop 07/25/17 at 18:31 Ferric Sodium Gluconate Complex 125 mg/Sodium Chloride 110 ml @ 100 mls/hr Q24H IVPB Last administered on 07/25/17 13:01; Admin Dose 100 MLS/HR; Start 07/25/17 at 13:00; Stop 07/27/17 at 14:05 Piperacillin Sod/ Tazobactam Sod (Zosyn 2.25gm/ 50ml (Pmx)) 50 ml @ 100 mls/hr Q8 IVPB Last administered on 07/25/17 14:22; Admin Dose 100 MLS/HR; Start 07/25/17 at 14:00 CHICHI CORBETT MD Jul 25, 2017 14:42
[2017-07-25] MEDS ORDERED: MAGNESIUM CITRATE 300 ML BTL PO ONE (17:30)
[2017-07-25] MEDS ORDERED: POLYETHYLENE GLYCOL 3350 119 GM POWDER PO ONE (18:30)
--- NOTE | 2017-07-25 18:44 | CONS ---
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, unclear etiology, clinically compensated Diabetes mellitus Benign prostate hyperplasia History of stroke (based on head CT findings) Anemia - follow up gastroenterology Recommendations: -intravenous fluid hydration -pressors if needed to keep MAP>65 -will start on aspirin once gastroenterology work up completed -will start carvedilol/lisinopril for systolic heart failure once hypotension improves -will eventually need coronary evaluation (can be done as outpatient) Problems: Consultation Date/Type/Reason Admit Date/Time Jul 23, 2017 at 20:11 Type of Consultation: Cardiology Reason for Consultation cardiomyopathy Hx of Present Illness The patient is an 82 year-old male who presented status post fall without loss of consciousness. He was found to have sepsis from a urinary tract infection, and has subsequently been transferred to the ICU due to hypotension. His blood pressures have responded to intravenous fluids and he has not required pressors. He was incidentally noted on echocardiogram to have a reduced left ventricular ejection fraction of 20-25%. This appears to be a new diagnosis for him. 14 point review of systems negative other than per HPI. Past Medical History Diabetes mellitus Benign prostate hyperplasia History of stroke (based on head CT findings) Past Surgical History Past Surgical Hx: endoscopy Family History Significant Family History: no pertinent family hx Social History Alcohol Use: none Smoking Status: Former smoker Drug Use: none Exam/Review of Systems Vital Signs Vitals Vital Signs Date Time Temp Pulse Resp B/P Pulse Ox O2 Delivery O2 Flow Rate FiO2 07/25/17 17:00 84 23 81/42 98 Nasal Cannula 07/25/17 16:00 97.8 07/25/17 14:00 3.0 Intake and Output 07/24/17 07/24/17 07/25/17 15:00 23:00 07:00 Intake Total 550 ml 1400 ml Output Total 700 ml 1650 ml Balance -150 ml -250 ml Exam Constitutional: alert, well developed Psych: nl mood/affect, no complaints Head: atraumatic, normocephalic Eyes: nl conjunctiva, nl lids ENMT: nl external ears & nose, nl nasal mucosa & septum Neck: non-tender, supple Respiratory: clear to auscultation, normal air movement Cardiovascular: regular rate and rhythm Gastrointestinal: ascites, soft Musculoskeletal: nl extremities to inspection Extremities: No clubbing, No cyanosis, No edema Neurological: nl mental status, nl speech Results Result Diagram: 07/25/17 0659 07/25/17 0659 Results 24 hrs Laboratory Tests Test 07/24/17 20:25 07/25/17 06:59 07/25/17 07:00 07/25/17 07:45 Bedside Glucose 174 133 White Blood Count 11.4 #H Red Blood Count 2.95 L Hemoglobin 8.0 L Hematocrit 25.0 L Mean Corpuscular Volume 84.7 Mean Corpuscular Hemoglobin 27.1 L Mean Corpuscular Hemoglobin Concent 32.0 Red Cell Distribution Width 15.6 H Platelet Count 214 # Mean Platelet Volume 10.8 H Neutrophils % 86.0 H Lymphocytes % 7.8 L Monocytes % 4.7 Eosinophils % 0.7 Basophils % 0.1 Nucleated Red Blood Cells % 0.0 Neutrophils # 9.8 H Lymphocytes # 0.9 Monocytes # 0.5 Eosinophils # 0.1 Basophils # 0.0 Nucleated Red Blood Cells # 0.0 Sodium Level 138 Potassium Level 4.3 Chloride Level 110 # Carbon Dioxide Level 20 L Anion Gap 12 Blood Urea Nitrogen 47 #H Creatinine 2.20 #H Glucose Level 133 # Calcium Level 7.9 L Magnesium Level 1.7 Iron Level 12 L Total Iron Binding Capacity 160 L Percent Iron Saturation 8 L Ferritin 448.0 H Total Bilirubin 0.0 L Direct Bilirubin 0.00 Indirect Bilirubin 0.0 Aspartate Amino Transf (AST/SGOT) 12 L Alanine Aminotransferase (ALT/SGPT) 26 Alkaline Phosphatase 131 H Total Protein 5.8 L Albumin 2.2 L Globulin 3.60 H Albumin/Globulin Ratio 0.61 Triglycerides Level 216 H Cholesterol Level 124 LDL Cholesterol, Calculated 66 HDL Cholesterol 15 L Cholesterol/HDL Ratio 8.2 Hemoglobin A1c 7.6 H Test 07/25/17 11:35 07/25/17 11:38 07/25/17 11:50 Bedside Glucose 115 Blood Gas Specimen Source Blood arterial Arterial Blood Date Drawn 07/25/2017 11:46:27 AM Arterial Blood pH (Temp corrected) 7.412 Arterial Blood pCO2 (Temp correct) 29.1 L Arterial Blood pO2 (Temp corrected) 86.6 Arterial Blood HCO3 18.1 L Arterial Blood Base Excess -5.7 L Arterial Blood Oxygen Saturation 96.3 Tyrese Test ACCEPTAB Arterial Blood Gas Puncture Site Right Radial Arterial Blood Carboxyhemoglobin 0.3 Arterial Blood Methemoglobin 0.1 Blood Gas A-a O2 Differential 114.7 H Oxyhemoglobin Percent 95.9 Total Hemoglobin 8.2 L Blood Gas Temperature 37.0 Blood Gas Modality NASAL CANNULA FiO2 33.0 Blood Gas Notified Whom AC Blood Gas Notified Time 07/25/2017 11:53:58 AM Lactic Acid Level 0.9 Medications Medications Current Medications Sodium Chloride (NS) 1,000 ml @ 100 mls/hr Q10H IV Last administered on 07:48; Admin Dose 100 MLS/HR; Start 07/24/17 at 02:00 Ondansetron HCl (Zofran Inj) 4 mg Q6H PRN IV NAUSEA AND/OR VOMITING; Start 07/24/17 at 05:30 Acetaminophen (Tylenol Tab) 650 mg Q6H PRN PO PAIN LEVEL 1-3 OR FEVER; Start 07/24/17 at 05:30 Morphine Sulfate (morphine) 2 mg Q4H PRN IV PAIN LEVEL 7-10; Start 07/24/17 at 05:30 Ranitidine HCl (Zantac) 150 mg HS PO Last administered on 07/24/17 20:29; Admin Dose 150 MG; Start 07/24/17 at 21:00 Tamsulosin HCl (Flomax) 0.4 mg DAILY@21 PO Last administered on 07/24/17 20:30 ; Admin Dose 0.4 MG; Start 07/24/17 at 21:00 Diagnostic Test (Pha) (Accu-Chek) 1 ea 02 XX ; Start 07/25/17 at 02:00 Insulin Glargine (Lantus) 15 unit DAILY@08 SC Last administered on 07/25/17 07 :47; Admin Dose 15 UNIT; Start 07/24/17 at 08:00 Polyethylene Glycol 17 gm 17 gm BID PRN PO constipation; Start 07/24/17 at 12: 00 Cefepime HCl (Maxipime 1gm/50 ml (Pmx)) 50 ml @ 100 mls/hr Q24H IVPB Last administered on 07/25/17 07:48; Admin Dose 100 MLS/HR; Start 07/25/17 at 09:00 Guaifenesin 200 mg 200 mg Q4H PRN PO cough Last administered on 07/24/17 13:16 ; Admin Dose 200 MG; Start 07/24/17 at 13:30 Ferric Sodium Gluconate Complex 125 mg/Sodium Chloride 110 ml @ 100 mls/hr Q24H IVPB Last administered on 07/25/17 13:01; Admin Dose 100 MLS/HR; Start 07/25/17 at 13:00; Stop 07/27/17 at 14:05 Piperacillin Sod/ Tazobactam Sod (Zosyn 2.25gm/ 50ml (Pmx)) 50 ml @ 100 mls/hr Q8 IVPB Last administered on 07/25/17 14:22; Admin Dose 100 MLS/HR; Start 07/25/17 at 14:00 ABE EDWARDS MD Jul 25, 2017 18:43
[2017-07-25] MEDS ORDERED: NORepinephrine 8MG/250 ML (PMX 250 ML ONE (20:21)
[2017-07-25] MEDS ORDERED: NORepinephrine 8MG/250 ML (PMX 250 ML IV SCH (20:30)
[2017-07-25] MEDS: RANITIDINE 150 MG TAB PO SCH (21:08)
[2017-07-25] MEDS: TAMSULOSIN (SR) 0.4 MG CAP PO SCH (21:08)
[2017-07-26] VITALS (36 sets, daily range): BP systolic 89–124; BP diastolic 46–66; PULSE 77–108; RESP 13–27
[2017-07-26] MEDS: ACCU-CHEK XX SCH (01:08)
[2017-07-26] MEDS: SOD CHLORIDE 0.9% 1,000 ML IV SCH ×2 (04:25→13:15)
[2017-07-26] MEDS: PIPER-TAZO 2.25 GM (PMX) 50 ML IVPB SCH ×3 (05:32→21:27)
[2017-07-26] MEDS ORDERED: POLYETHYLENE GLYCOL 3350 119 GM POWDER PO ONE (06:00)
[2017-07-26 06:17] LABS: BASOPHILS % 0.1 % (0.0-2.0); EOSINOPHILS # 0.1 10^3/ul (0.0-0.5); HEMOGLOBIN 7.9 g/dl (14.0-18.0); LYMPHOCYTES % 9.8 % (15.0-51.0); MEAN CORPUSCULAR HEMOGLOBIN 27.1 pg (29.0-33.0); MEAN CORPUSCULAR HGB CONC 31.6 g/dl (32.0-37.0); MEAN CORPUSCULAR VOLUME 85.6 fl (82.0-101.0); MONOCYTE # 0.5 10^3/ul (0.3-0.9); MONOCYTES % 4.6 % (0.0-11.0); NEUTROPHIL # 8.8 10^3/ul (1.6-7.5); NEUTROPHILS % 83.8 % (39.0-77.0); PLATELET COUNT 343 10^3/UL (140-415); RED BLOOD COUNT 2.92 10^6/ul (4.70-6.10); RED CELL DISTRIBUTION WIDTH 15.9 % (11.5-14.5); WHITE BLOOD COUNT 10.4 10^3/ul (4.8-10.8)
[2017-07-26 07:00] LABS: CREATININE 2.02 mg/dl (0.61-1.24); MAGNESIUM 2.1 mg/dl (1.7-2.5); PHOSPHORUS 3.3 mg/dl (2.5-4.9); POTASSIUM 4.3 mmol/L (3.5-5.1)
[2017-07-26] MEDS: INSULIN ASPART [NOVOLOG] 3 ML PEN SC SCH ×4 (07:35→21:35)
[2017-07-26] MEDS ORDERED: BISACODYL (EC) 5 MG TAB PO ONE (08:00)
[2017-07-26] MEDS: INSULIN GLARGINE [LANtus] 3 ML PEN SC SCH (08:51)
[2017-07-26] MEDS: CEFEPIME 1GM/50 ML (PMX) 50 ML IVPB SCH (10:02)
--- NOTE | 2017-07-26 10:24 | PN ---
Date/Time of Note Date/Time of Note DATE: 07/26/17 TIME: 10:11 Assessment/Plan VTE Prophylaxis VTE Prophylaxis Intervention: SCD's Lines/Catheters IV Catheter [facility] (from [facility]): Saline Lock Urinary Cath still in place: Yes Reason Cath still needed: urinary retention Assessment/Plan Chief Complaint/Hosp Course S: Patient became hypotensive yesterday while on telemetry floor and had to be transferred to the intensive care unit yesterday. O: VS (see below) PE: Constitutional: Lying in bed, no acute distress Head: other (some swelling and erythema in the left forehead) Eyes: EOMI, PERRL Respiratory: clear to auscultation, normal air movement Cardiovascular: nl pulses, regular rate and rhythm Gastrointestinal: soft Extremities: normal pulses Neurological: nl strength A/P: 82-year-old male with a history of BPH and type 2 diabetes, old CVA(based on imaging) who presented to the ER after falling down hitting his head, now with sepsis secondary to, UTI, anemia, and renal insufficiency. 1. Sepsis- secondary to UTI -urine culture shows E. coli and enterococcus greater than 100,000 colony-forming units. Lactic acid normal -Continue IV fluids -Follow-up final culture results, antibiotics per ID recommendations, Zosyn for now 2. Acute kidney injury - slowly improving -continue IV fluid -Follow-up renal recommendations -Treat UTI abx -Continue Pagan and Flomax for his BPH, follow-up urology recommendations 3.Low ejection fraction: See echocardiogram results below EF equals 20-25%. -Appreciate cardiology consult, for now continue IV fluids -For cardiology rec's, start pressors if needed to keep MAP>65 - aspirin once gastroenterology work up completed -will likely start carvedilol/lisinopril for systolic heart failure once hypotension improves -Will likely need coronary evaluation (can be done as outpatient per cardiology) 4. Anemia-also with low iron levels. Hemoglobin today 7.9 -Follow GI recommendations, holding anticoagulants, for EGD and colonoscopy when medically stable -Continue iron IV 3 doses total -Follow-up occult stool test results 5. Type 2 diabetes A1c equals 7.6 - Insulin while in-house 6. History of BPH -appreciate urology consult -Continue Flomax, Pagan catheter. Critical care time spent on patient care today equals 50 minutes. Problems: Exam/Review of Systems Vital Signs Vitals Vital Signs Date Time Temp Pulse Resp B/P Pulse Ox O2 Delivery O2 Flow Rate FiO2 07/26/17 08:00 93 22 95/61 95 Nasal Cannula 07/26/17 04:00 98.2 07/26/17 01:37 3.0 Intake and Output 07/25/17 07/25/17 07/26/17 15:00 23:00 07:00 Intake Total 300 ml 450 ml 929.995 ml Output Total 525 ml 585 ml 925 ml Balance -225 ml -135 ml 4.995 ml Results Result Diagram: 07/26/17 0543 07/26/17 0543 Results 24 hrs Laboratory Tests Test 07/25/17 11:35 07/25/17 11:38 07/25/17 11:50 07/25/17 18:21 Bedside Glucose 115 74 Blood Gas Specimen Source Blood arterial Arterial Blood Date Drawn 07/25/2017 11:46:27 AM Arterial Blood pH (Temp corrected) 7.412 Arterial Blood pCO2 (Temp correct) 29.1 L Arterial Blood pO2 (Temp corrected) 86.6 Arterial Blood HCO3 18.1 L Arterial Blood Base Excess -5.7 L Arterial Blood Oxygen Saturation 96.3 Tyrese Test ACCEPTAB Arterial Blood Gas Puncture Site Right Radial Arterial Blood Carboxyhemoglobin 0.3 Arterial Blood Methemoglobin 0.1 Blood Gas A-a O2 Differential 114.7 H Oxyhemoglobin Percent 95.9 Total Hemoglobin 8.2 L Blood Gas Temperature 37.0 Blood Gas Modality NASAL CANNULA FiO2 33.0 Blood Gas Notified Whom AC Blood Gas Notified Time 07/25/2017 11:53:58 AM Lactic Acid Level 0.9 Test 07/25/17 20:32 07/26/17 05:43 07/26/17 08:39 Bedside Glucose 84 213 White Blood Count 10.4 Red Blood Count 2.92 L Hemoglobin 7.9 L Hematocrit 25.0 L Mean Corpuscular Volume 85.6 Mean Corpuscular Hemoglobin 27.1 L Mean Corpuscular Hemoglobin Concent 31.6 L Red Cell Distribution Width 15.9 H Platelet Count 343 # Mean Platelet Volume 9.0 Neutrophils % 83.8 H Lymphocytes % 9.8 L Monocytes % 4.6 Eosinophils % 1.0 Basophils % 0.1 Nucleated Red Blood Cells % 0.0 Neutrophils # 8.8 H Lymphocytes # 1.0 Monocytes # 0.5 Eosinophils # 0.1 Basophils # 0.0 Nucleated Red Blood Cells # 0.0 Sodium Level 140 Potassium Level 4.3 Chloride Level 112 H Carbon Dioxide Level 20 L Anion Gap 12 Blood Urea Nitrogen 38 H Creatinine 2.02 H Glucose Level 119 Calcium Level 8.0 L Phosphorus Level 3.3 Magnesium Level 2.1 Medications Medications Current Medications Sodium Chloride (NS) 1,000 ml @ 100 mls/hr Q10H IV Last administered on 04:25; Admin Dose 100 MLS/HR; Start 07/24/17 at 02:00 Ondansetron HCl (Zofran Inj) 4 mg Q6H PRN IV NAUSEA AND/OR VOMITING; Start 07/24/17 at 05:30 Acetaminophen (Tylenol Tab) 650 mg Q6H PRN PO PAIN LEVEL 1-3 OR FEVER; Start 07/24/17 at 05:30 Morphine Sulfate (morphine) 2 mg Q4H PRN IV PAIN LEVEL 7-10; Start 07/24/17 at 05:30 Ranitidine HCl (Zantac) 150 mg HS PO Last administered on 07/25/17 21:08; Admin Dose 150 MG; Start 07/24/17 at 21:00 Tamsulosin HCl (Flomax) 0.4 mg DAILY@21 PO Last administered on 07/25/17 21:08 ; Admin Dose 0.4 MG; Start 07/24/17 at 21:00 Diagnostic Test (Pha) (Accu-Chek) 1 ea 02 XX ; Start 07/25/17 at 02:00 Insulin Glargine (Lantus) 15 unit DAILY@08 SC Last administered on 07/26/17 08 :51; Admin Dose 15 UNIT; Start 07/24/17 at 08:00 Polyethylene Glycol 17 gm 17 gm BID PRN PO constipation; Start 07/24/17 at 12: 00 Cefepime HCl (Maxipime 1gm/50 ml (Pmx)) 50 ml @ 100 mls/hr Q24H IVPB Last administered on 07/26/17 10:02; Admin Dose 100 MLS/HR; Start 07/25/17 at 09:00 Guaifenesin 200 mg 200 mg Q4H PRN PO cough Last administered on 07/24/17 13:16 ; Admin Dose 200 MG; Start 07/24/17 at 13:30 Ferric Sodium Gluconate Complex 125 mg/Sodium Chloride 110 ml @ 100 mls/hr Q24H IVPB Last administered on 07/25/17 13:01; Admin Dose 100 MLS/HR; Start 07/25/17 at 13:00; Stop 07/27/17 at 14:05 Piperacillin Sod/ Tazobactam Sod 50 ml @ 100 mls/hr Q8 IVPB Last administered on 07/26/17 05:32; Admin Dose 100 MLS/HR; Start 07/25/17 at 14:00 Norepinephrine (Levophed) 250 ml @ 1.875 mls/ hr TITRATE IV Last administered on 07/25/17 22:51; Admin Dose 9.375 MLS/HR; Start 07/25/17 at 20:30 JESSE TINOCO Jul 26, 2017 10:24
[2017-07-26] MEDS: GUAIFENESIN 20 MG/ML 5ML CUP PO PRN (11:32)
--- NOTE | 2017-07-26 13:15 | CONS ---
Date/Time of Note Date/Time of Note DATE: 07/26/17 TIME: 13:12 Assessment/Plan Assessment/Plan Chief Complaint/Hosp Course SUBJECTIVE: No acute events overnight. Patient was on Levophed drip overnight currently off, sleeping looks comfortable no fevers MICROBIOLOGY: Urine culture growing enterococcus species and E. coli. Blood cultures since admission negative. INDWELLINGS: The patient has Pagan catheter. ANTIMICROBIALS: Zosyn. ALLERGIES: NONE. PHYSICAL EXAMINATION: GENERAL: This is a well-nourished, well-developed elderly white man who is alert, in no distress. HEENT: Head atraumatic, normocephalic. Sclerae anicteric. Buccal mucosa pink. NECK: Supple. CHEST: Rise symmetrical. Breath sounds clear. HEART: S1, S2. ABDOMEN: Soft, bowel tones present. EXTREMITIES: Without cyanosis. Trace edema. ASSESSMENT: 1. Sepsis with symptomatic hypotension, off Levophed drip. 2. Polymicrobial urinary tract infection 3. Status post fall. 4. Malposition of Pagan catheter, urology on case, status post Pagan catheter adjusted. 5. Anemia. 6. Benign prostatic hypertrophy. 7. Diabetes. 8. Acute possibly on chronic kidney disease. PLAN: Hemodynamically stable, continue present care, antibiotics, follow recommendations of specialists. Discussed with RN Problems: Consultation Date/Type/Reason Admit Date/Time Jul 23, 2017 at 20:11 Initial Consult Date 07/24/17 Type of Consultation: id Referring Provider: ARNOLD HUTCHISON MD Exam/Review of Systems Vital Signs Vitals Vital Signs Date Time Temp Pulse Resp B/P Pulse Ox O2 Delivery O2 Flow Rate FiO2 07/26/17 11:00 88 19 99/53 92 Nasal Cannula 07/26/17 10:00 97.0 07/26/17 01:37 3.0 Intake and Output 07/25/17 07/25/17 07/26/17 15:00 23:00 07:00 Intake Total 300 ml 450 ml 929.995 ml Output Total 525 ml 585 ml 925 ml Balance -225 ml -135 ml 4.995 ml Results Result Diagram: 07/26/17 0543 07/26/17 0543 Results 24 hrs Laboratory Tests Test 07/25/17 18:21 07/25/17 20:32 07/26/17 05:43 07/26/17 08:39 Bedside Glucose 74 84 213 White Blood Count 10.4 Red Blood Count 2.92 L Hemoglobin 7.9 L Hematocrit 25.0 L Mean Corpuscular Volume 85.6 Mean Corpuscular Hemoglobin 27.1 L Mean Corpuscular Hemoglobin Concent 31.6 L Red Cell Distribution Width 15.9 H Platelet Count 343 # Mean Platelet Volume 9.0 Neutrophils % 83.8 H Lymphocytes % 9.8 L Monocytes % 4.6 Eosinophils % 1.0 Basophils % 0.1 Nucleated Red Blood Cells % 0.0 Neutrophils # 8.8 H Lymphocytes # 1.0 Monocytes # 0.5 Eosinophils # 0.1 Basophils # 0.0 Nucleated Red Blood Cells # 0.0 Sodium Level 140 Potassium Level 4.3 Chloride Level 112 H Carbon Dioxide Level 20 L Anion Gap 12 Blood Urea Nitrogen 38 H Creatinine 2.02 H Glucose Level 119 Calcium Level 8.0 L Phosphorus Level 3.3 Magnesium Level 2.1 Test 07/26/17 11:34 Bedside Glucose 188 Medications Medications Current Medications Sodium Chloride (NS) 1,000 ml @ 100 mls/hr Q10H IV Last administered on 04:25; Admin Dose 100 MLS/HR; Start 07/24/17 at 02:00 Ondansetron HCl (Zofran Inj) 4 mg Q6H PRN IV NAUSEA AND/OR VOMITING; Start 07/24/17 at 05:30 Acetaminophen (Tylenol Tab) 650 mg Q6H PRN PO PAIN LEVEL 1-3 OR FEVER; Start 07/24/17 at 05:30 Morphine Sulfate (morphine) 2 mg Q4H PRN IV PAIN LEVEL 7-10; Start 07/24/17 at 05:30 Ranitidine HCl (Zantac) 150 mg HS PO Last administered on 07/25/17 21:08; Admin Dose 150 MG; Start 07/24/17 at 21:00 Tamsulosin HCl (Flomax) 0.4 mg DAILY@21 PO Last administered on 07/25/17 21:08 ; Admin Dose 0.4 MG; Start 07/24/17 at 21:00 Diagnostic Test (Pha) (Accu-Chek) 1 ea 02 XX ; Start 07/25/17 at 02:00 Insulin Glargine (Lantus) 15 unit DAILY@08 SC Last administered on 07/26/17 08 :51; Admin Dose 15 UNIT; Start 07/24/17 at 08:00 Polyethylene Glycol 17 gm 17 gm BID PRN PO constipation; Start 07/24/17 at 12: 00 Cefepime HCl (Maxipime 1gm/50 ml (Pmx)) 50 ml @ 100 mls/hr Q24H IVPB Last administered on 07/26/17 10:02; Admin Dose 100 MLS/HR; Start 07/25/17 at 09:00 Guaifenesin 200 mg 200 mg Q4H PRN PO cough Last administered on 07/26/17 11:32 ; Admin Dose 200 MG; Start 07/24/17 at 13:30 Ferric Sodium Gluconate Complex 125 mg/Sodium Chloride 110 ml @ 100 mls/hr Q24H IVPB Last administered on 07/25/17 13:01; Admin Dose 100 MLS/HR; Start 07/25/17 at 13:00; Stop 07/27/17 at 14:05 Piperacillin Sod/ Tazobactam Sod 50 ml @ 100 mls/hr Q8 IVPB Last administered on 07/26/17 05:32; Admin Dose 100 MLS/HR; Start 07/25/17 at 14:00 Norepinephrine (Levophed) 250 ml @ 1.875 mls/ hr TITRATE IV Last administered on 07/25/17 22:51; Admin Dose 9.375 MLS/HR; Start 07/25/17 at 20:30 KORIN JOHNSON NP Jul 26, 2017 13:15
[2017-07-26] MEDS: SOD FERRIC GLUC COMPLX 125 MG in SOD CHLORIDE 0.9% 100 ML IVPB SCH (13:54)
--- NOTE | 2017-07-26 14:14 | CONS ---
Date/Time of Note Date/Time of Note DATE: 07/26/17 TIME: 14:13 Assessment/Plan Assessment/Plan Additional Assessment/Plan 82 yo Male with 1) TANNER on CKD, Appears to have chronic outlet obstruction with mild B/L [place] 2) Renal Cyst with Chronic Kidney disease appearance on Renal US 3) Prostatomegaly 4) Urosepsis 5) B/l PNA 6) Lactic Acidosis 7) Severe Anemia 8) Hypotension 9) Pre Renal Azotemia, Dehydration 10) Hyponatremia Renal functon continues to improve Receiving IV Iron Rx Cont with IVFS ON IV Abx Repeat chemistry in am Will cont to monitor UO Electrolytes and renal function Consultation Date/Type/Reason Admit Date/Time Jul 23, 2017 at 20:11 Initial Consult Date 07/24/17 Type of Consultation: Renal Referring Provider: ARNOLD HUTCHISON MD 24 HR Interval Summary Free Text/Dictation Good UO Subjective hx not possible: pt critical status Constitutional: No requiring O2 Exam/Review of Systems Vital Signs Vitals Vital Signs Date Time Temp Pulse Resp B/P Pulse Ox O2 Delivery O2 Flow Rate FiO2 07/26/17 11:00 88 19 99/53 92 Nasal Cannula 07/26/17 10:00 97.0 07/26/17 01:37 3.0 Intake and Output 07/25/17 07/25/17 07/26/17 14:59 22:59 06:59 Intake Total 200 ml 450 ml 1029.995 ml Output Total 400 ml 635 ml 1000 ml Balance -200 ml -185 ml 29.995 ml Exam Constitutional: alert, No distress Eyes: EOMI Neck: No jvd Respiratory: No diminished breath sounds, No labored breathing Cardiovascular: regular rate and rhythm, No edema Gastrointestinal: non-tender, soft Genitourinary - Male: other (Pagan) Musculoskeletal: nl extremities to inspection Neurological: lethargic, nl mental status Skin: No diaphoresis, No rash or lesions Results Result Diagram: 07/26/17 0543 07/26/17 0543 Results 24 hrs Laboratory Tests Test 07/25/17 18:21 07/25/17 20:32 07/26/17 05:43 07/26/17 08:39 Bedside Glucose 74 84 213 White Blood Count 10.4 Red Blood Count 2.92 L Hemoglobin 7.9 L Hematocrit 25.0 L Mean Corpuscular Volume 85.6 Mean Corpuscular Hemoglobin 27.1 L Mean Corpuscular Hemoglobin Concent 31.6 L Red Cell Distribution Width 15.9 H Platelet Count 343 # Mean Platelet Volume 9.0 Neutrophils % 83.8 H Lymphocytes % 9.8 L Monocytes % 4.6 Eosinophils % 1.0 Basophils % 0.1 Nucleated Red Blood Cells % 0.0 Neutrophils # 8.8 H Lymphocytes # 1.0 Monocytes # 0.5 Eosinophils # 0.1 Basophils # 0.0 Nucleated Red Blood Cells # 0.0 Sodium Level 140 Potassium Level 4.3 Chloride Level 112 H Carbon Dioxide Level 20 L Anion Gap 12 Blood Urea Nitrogen 38 H Creatinine 2.02 H Glucose Level 119 Calcium Level 8.0 L Phosphorus Level 3.3 Magnesium Level 2.1 Test 07/26/17 11:34 Bedside Glucose 188 Medications Medications Current Medications Sodium Chloride (NS) 1,000 ml @ 100 mls/hr Q10H IV Last administered on 04:25; Admin Dose 100 MLS/HR; Start 07/24/17 at 02:00 Ondansetron HCl (Zofran Inj) 4 mg Q6H PRN IV NAUSEA AND/OR VOMITING; Start 07/24/17 at 05:30 Acetaminophen (Tylenol Tab) 650 mg Q6H PRN PO PAIN LEVEL 1-3 OR FEVER; Start 07/24/17 at 05:30 Morphine Sulfate (morphine) 2 mg Q4H PRN IV PAIN LEVEL 7-10; Start 07/24/17 at 05:30 Ranitidine HCl (Zantac) 150 mg HS PO Last administered on 07/25/17 21:08; Admin Dose 150 MG; Start 07/24/17 at 21:00 Tamsulosin HCl (Flomax) 0.4 mg DAILY@21 PO Last administered on 07/25/17 21:08 ; Admin Dose 0.4 MG; Start 07/24/17 at 21:00 Diagnostic Test (Pha) (Accu-Chek) 1 ea 02 XX ; Start 07/25/17 at 02:00 Insulin Glargine (Lantus) 15 unit DAILY@08 SC Last administered on 07/26/17 08 :51; Admin Dose 15 UNIT; Start 07/24/17 at 08:00 Polyethylene Glycol 17 gm 17 gm BID PRN PO constipation; Start 07/24/17 at 12: 00 Cefepime HCl (Maxipime 1gm/50 ml (Pmx)) 50 ml @ 100 mls/hr Q24H IVPB Last administered on 07/26/17 10:02; Admin Dose 100 MLS/HR; Start 07/25/17 at 09:00 Guaifenesin 200 mg 200 mg Q4H PRN PO cough Last administered on 07/26/17 11:32 ; Admin Dose 200 MG; Start 07/24/17 at 13:30 Ferric Sodium Gluconate Complex 125 mg/Sodium Chloride 110 ml @ 100 mls/hr Q24H IVPB Last administered on 07/26/17 13:54; Admin Dose 100 MLS/HR; Start 07/25/17 at 13:00; Stop 07/27/17 at 14:05 Piperacillin Sod/ Tazobactam Sod 50 ml @ 100 mls/hr Q8 IVPB Last administered on 07/26/17 14:09; Admin Dose 100 MLS/HR; Start 07/25/17 at 14:00 Norepinephrine (Levophed) 250 ml @ 1.875 mls/ hr TITRATE IV Last administered on 07/25/17 22:51; Admin Dose 9.375 MLS/HR; Start 07/25/17 at 20:30 CHICHI CORBETT MD Jul 26, 2017 14:14
[2017-07-26] MEDS ORDERED: GLUCOSE GEL 15 GRAM TUBE BUCCAL PRN (17:00)
[2017-07-26] MEDS ORDERED: GLUCAGON 1 MG INJ IM PRN (17:00)
[2017-07-26] MEDS ORDERED: DEXTROSE 50% 50 ML SYRINGE IV PRN ×2 (17:00)
[2017-07-26] MEDS ORDERED: GLUCOSE GEL 15 GRAM TUBE PO PRN ×2 (17:00)
--- NOTE | 2017-07-26 17:23 | PN ---
Date/Time of Note Date/Time of Note DATE: 07/26/17 TIME: 17:22 Assessment/Plan VTE Prophylaxis VTE Prophylaxis Intervention: SCD's Lines/Catheters [facility] Saline [facility] Urinary Cath still in place: Yes Reason Cath still needed: other (indicate) (Monitor output) Assessment/Plan Chief Complaint/Hosp Course Assessment: Anemia Chronic disease vs acute LIDA S/p fall with head abrasion UTI- on antibiotics DM Presumed TANNER History of BPH Plan: EGD/colonoscopy tomorrow Discussed risk/benefits with patient who verbalized understanding Subjective: Course reviewed with nursing staff Patient interviewed and examined All labs, imaging and other results reviewed The patient resting in bed, patient for colonoscopy not adequate We will continue gentle preparation and reschedule procedures for tomorrow PHYSICAL EXAMINATION: GENERAL: Well developed, alert & oriented x 3, SKIN: No lesions, no stigmata chronic liver disease, no evidence of bleeding diathesis LYMPHATIC: No palpable lymphadenopathy. HEAD: Normocephalic, atraumatic, no tenderness. EYES: Pupils equal reactive to light and accommodation, full extraocular movements, sclera clear, non-icteric, no discharge. EARS/NOSE AND THROAT: Ears normal, nose normal, oropharynx normal, oral membranes well hydrated without lesions. NECK: Supple, no masses, CHEST: Inspection within normal limits. CARDIOVASCULAR: Heart: Regular rate and rhythm, no murmurs, gallops or rubs. GASTROINTESTINAL AND LIVER: Abdomen: Soft, non tenderness, non-distended, no hernias, no masses, no organomegaly, no ascites, no guarding, no rebound tenderness, normoactive bowel sounds. Rectal: Deferred. GENITOURINARY: Male genitalia within normal limits. EXTREMITIES: No cyanosis, clubbing or edema. Problems: Exam/Review of Systems Vital Signs Vitals Vital Signs Date Time Temp Pulse Resp B/P Pulse Ox O2 Delivery O2 Flow Rate FiO2 07/26/17 16:30 84 17 89/53 95 Room Air 07/26/17 16:00 97.8 07/26/17 01:37 3.0 Intake and Output 07/25/17 07/25/17 07/26/17 15:00 23:00 07:00 Intake Total 300 ml 450 ml 929.995 ml Output Total 525 ml 585 ml 925 ml Balance -225 ml -135 ml 4.995 ml Results Result Diagram: 07/26/17 0543 07/26/17 0543 Results 24 hrs Laboratory Tests Test 07/25/17 18:21 07/25/17 20:32 07/26/17 05:43 07/26/17 08:39 Bedside Glucose 74 84 213 White Blood Count 10.4 Red Blood Count 2.92 L Hemoglobin 7.9 L Hematocrit 25.0 L Mean Corpuscular Volume 85.6 Mean Corpuscular Hemoglobin 27.1 L Mean Corpuscular Hemoglobin Concent 31.6 L Red Cell Distribution Width 15.9 H Platelet Count 343 # Mean Platelet Volume 9.0 Neutrophils % 83.8 H Lymphocytes % 9.8 L Monocytes % 4.6 Eosinophils % 1.0 Basophils % 0.1 Nucleated Red Blood Cells % 0.0 Neutrophils # 8.8 H Lymphocytes # 1.0 Monocytes # 0.5 Eosinophils # 0.1 Basophils # 0.0 Nucleated Red Blood Cells # 0.0 Sodium Level 140 Potassium Level 4.3 Chloride Level 112 H Carbon Dioxide Level 20 L Anion Gap 12 Blood Urea Nitrogen 38 H Creatinine 2.02 H Glucose Level 119 Calcium Level 8.0 L Phosphorus Level 3.3 Magnesium Level 2.1 Test 07/26/17 11:34 Bedside Glucose 188 Medications Medications Current Medications Sodium Chloride (NS) 1,000 ml @ 100 mls/hr Q10H IV Last administered on 04:25; Admin Dose 100 MLS/HR; Start 07/24/17 at 02:00 Ondansetron HCl (Zofran Inj) 4 mg Q6H PRN IV NAUSEA AND/OR VOMITING; Start 07/24/17 at 05:30 Acetaminophen (Tylenol Tab) 650 mg Q6H PRN PO PAIN LEVEL 1-3 OR FEVER; Start 07/24/17 at 05:30 Morphine Sulfate (morphine) 2 mg Q4H PRN IV PAIN LEVEL 7-10; Start 07/24/17 at 05:30 Ranitidine HCl (Zantac) 150 mg HS PO Last administered on 07/25/17 21:08; Admin Dose 150 MG; Start 07/24/17 at 21:00 Tamsulosin HCl (Flomax) 0.4 mg DAILY@21 PO Last administered on 07/25/17 21:08 ; Admin Dose 0.4 MG; Start 07/24/17 at 21:00 Diagnostic Test (Pha) (Accu-Chek) 1 ea 02 XX ; Start 07/25/17 at 02:00 Insulin Glargine (Lantus) 15 unit DAILY@08 SC Last administered on 07/26/17 08 :51; Admin Dose 15 UNIT; Start 07/24/17 at 08:00 Polyethylene Glycol 17 gm 17 gm BID PRN PO constipation; Start 07/24/17 at 12: 00 Cefepime HCl (Maxipime 1gm/50 ml (Pmx)) 50 ml @ 100 mls/hr Q24H IVPB Last administered on 07/26/17 10:02; Admin Dose 100 MLS/HR; Start 07/25/17 at 09:00 Guaifenesin 200 mg 200 mg Q4H PRN PO cough Last administered on 07/26/17 11:32 ; Admin Dose 200 MG; Start 07/24/17 at 13:30 Ferric Sodium Gluconate Complex 125 mg/Sodium Chloride 110 ml @ 100 mls/hr Q24H IVPB Last administered on 07/26/17 13:54; Admin Dose 100 MLS/HR; Start 07/25/17 at 13:00; Stop 07/27/17 at 14:05 Piperacillin Sod/ Tazobactam Sod 50 ml @ 100 mls/hr Q8 IVPB Last administered on 07/26/17 14:09; Admin Dose 100 MLS/HR; Start 07/25/17 at 14:00 Norepinephrine (Levophed) 250 ml @ 1.875 mls/ hr TITRATE IV Last administered on 07/25/17 22:51; Admin Dose 9.375 MLS/HR; Start 07/25/17 at 20:30 Miscellaneous Information 1 ea NOTE XX ; Start 07/26/17 at 17:00 Glucose (Glutose) 15 gm Q15M PRN PO DECREASED GLUCOSE; Start 07/26/17 at 17:00 Glucose (Glutose) 22.5 gm Q15M PRN PO DECREASED GLUCOSE; Start 07/26/17 at 17: 00 Dextrose (D50w Syringe) 25 ml Q15M PRN IV DECREASED GLUCOSE; Start 07/26/17 at 17:00 Dextrose (D50w Syringe) 50 ml Q15M PRN IV DECREASED GLUCOSE; Start 07/26/17 at 17:00 Glucagon (Glucagen) 1 mg Q15M PRN IM DECREASED GLUCOSE; Start 07/26/17 at 17:00 Glucose (Glutose) 15 gm Q15M PRN BUCCAL DECREASED GLUCOSE; Start 07/26/17 at 17 :00 JONAS COLINDRES MD Jul 26, 2017 17:23
[2017-07-26] MEDS: LACTULOSE 30ML CUP GTB SCH ×3 (18:00→21:27)
--- NOTE | 2017-07-26 20:09 | CONS ---
Date/Time of Note Date/Time of Note DATE: 07/26/17 TIME: 20:04 Consult Date/Type/Reason Admit Date/Time Jul 23, 2017 at 20:11 Initial Consult Date 07/24/17 Type of Consultation: Urology Reason for Consultation Urinary retention Ordering Provider: ARNOLD HUTCHISON MD Subjective Patient is sleeping and appears comfortable Objective Vital Signs Date Time Temp Pulse Resp B/P Pulse Ox O2 Delivery O2 Flow Rate FiO2 07/26/17 16:30 84 17 89/53 95 Room Air 07/26/17 16:00 97.8 07/26/17 01:37 3.0 Intake and Output 07/25/17 07/25/17 07/26/17 14:59 22:59 06:59 Intake Total 200 ml 450 ml 1029.995 ml Output Total 400 ml 635 ml 1000 ml Balance -200 ml -185 ml 29.995 ml Exam Abdomen is soft, the Pagan catheter is draining clear urine however does have sediment in it and the urine culture did show enterococcus and the patient is on Zosyn and cefepime Results/Medications Result Diagram: 07/26/17 0543 07/26/17 0543 Results 24 hrs Laboratory Tests Test 07/25/17 20:32 07/26/17 05:43 07/26/17 08:39 07/26/17 11:34 Bedside Glucose 84 213 188 White Blood Count 10.4 Red Blood Count 2.92 L Hemoglobin 7.9 L Hematocrit 25.0 L Mean Corpuscular Volume 85.6 Mean Corpuscular Hemoglobin 27.1 L Mean Corpuscular Hemoglobin Concent 31.6 L Red Cell Distribution Width 15.9 H Platelet Count 343 # Mean Platelet Volume 9.0 Neutrophils % 83.8 H Lymphocytes % 9.8 L Monocytes % 4.6 Eosinophils % 1.0 Basophils % 0.1 Nucleated Red Blood Cells % 0.0 Neutrophils # 8.8 H Lymphocytes # 1.0 Monocytes # 0.5 Eosinophils # 0.1 Basophils # 0.0 Nucleated Red Blood Cells # 0.0 Sodium Level 140 Potassium Level 4.3 Chloride Level 112 H Carbon Dioxide Level 20 L Anion Gap 12 Blood Urea Nitrogen 38 H Creatinine 2.02 H Glucose Level 119 Calcium Level 8.0 L Phosphorus Level 3.3 Magnesium Level 2.1 Test 07/26/17 18:17 Bedside Glucose 199 Medications Current Medications Sodium Chloride (NS) 1,000 ml @ 100 mls/hr Q10H IV Last administered on 04:25; Admin Dose 100 MLS/HR; Start 07/24/17 at 02:00 Ondansetron HCl (Zofran Inj) 4 mg Q6H PRN IV NAUSEA AND/OR VOMITING; Start 07/24/17 at 05:30 Acetaminophen (Tylenol Tab) 650 mg Q6H PRN PO PAIN LEVEL 1-3 OR FEVER; Start 07/24/17 at 05:30 Morphine Sulfate (morphine) 2 mg Q4H PRN IV PAIN LEVEL 7-10; Start 07/24/17 at 05:30 Ranitidine HCl (Zantac) 150 mg HS PO Last administered on 07/25/17 21:08; Admin Dose 150 MG; Start 07/24/17 at 21:00 Tamsulosin HCl (Flomax) 0.4 mg DAILY@21 PO Last administered on 07/25/17 21:08 ; Admin Dose 0.4 MG; Start 07/24/17 at 21:00 Diagnostic Test (Pha) (Accu-Chek) 1 ea 02 XX ; Start 07/25/17 at 02:00 Insulin Glargine (Lantus) 15 unit DAILY@08 SC Last administered on 07/26/17 08 :51; Admin Dose 15 UNIT; Start 07/24/17 at 08:00 Polyethylene Glycol 17 gm 17 gm BID PRN PO constipation; Start 07/24/17 at 12: 00 Cefepime HCl (Maxipime 1gm/50 ml (Pmx)) 50 ml @ 100 mls/hr Q24H IVPB Last administered on 07/26/17 10:02; Admin Dose 100 MLS/HR; Start 07/25/17 at 09:00 Guaifenesin 200 mg 200 mg Q4H PRN PO cough Last administered on 07/26/17 11:32 ; Admin Dose 200 MG; Start 07/24/17 at 13:30 Ferric Sodium Gluconate Complex 125 mg/Sodium Chloride 110 ml @ 100 mls/hr Q24H IVPB Last administered on 07/26/17 13:54; Admin Dose 100 MLS/HR; Start 07/25/17 at 13:00; Stop 07/27/17 at 14:05 Piperacillin Sod/ Tazobactam Sod 50 ml @ 100 mls/hr Q8 IVPB Last administered on 07/26/17t 14:09; Admin Dose 100 MLS/HR; Start 07/25/17 at 14:00 Norepinephrine (Levophed) 250 ml @ 1.875 mls/ hr TITRATE IV Last administered on 07/25/17 22:51; Admin Dose 9.375 MLS/HR; Start 07/25/17 at 20:30 Miscellaneous Information 1 ea NOTE XX ; Start 07/26/17 at 17:00 Glucose (Glutose) 15 gm Q15M PRN PO DECREASED GLUCOSE; Start 07/26/17 at 17:00 Glucose (Glutose) 22.5 gm Q15M PRN PO DECREASED GLUCOSE; Start 07/26/17 at 17: 00 Dextrose (D50w Syringe) 25 ml Q15M PRN IV DECREASED GLUCOSE; Start 07/26/17 at 17:00 Dextrose (D50w Syringe) 50 ml Q15M PRN IV DECREASED GLUCOSE; Start 07/26/17 at 17:00 Glucagon (Glucagen) 1 mg Q15M PRN IM DECREASED GLUCOSE; Start 07/26/17 at 17:00 Glucose (Glutose) 15 gm Q15M PRN BUCCAL DECREASED GLUCOSE; Start 07/26/17 at 17 :00 Lactulose (Enulose) 20 gm Q2H GTB ; Start 07/26/17 at 18:00; Stop 07/27/17 at 00 :01 Assessment/Plan Chief Complaint/Hosp Course 82-year-old male fell at home and came into the emergency room was found to have anemia and elevated creatinine. Renal ultrasound was done and that showed debris within the bladder. Nursing staff inserted a Pagan catheter however the CT scan done after that showed bilateral hydronephrosis and urinary retention and the balloon of the Pagan catheter inside the prostatic urethra. Therefore the Pagan catheter was removed. The patient himself is not very clear about his urological history but he is known to have a history of BPH and the CT scan did show a large prostate and it measured about [address] scan. I therefore inserted a 16 [place] coud catheter and drained the bladder the initial urine came out clear then it became very cloudy and very purulent at the end. The culture did show enterococcus. We will keep the Pagan catheter and continue the antibiotic and monitor his renal function. The creatinine is improving very slowly. Also we will continue the tamsulosin. The PSA was 0.9 . I will follow his urological problem with you and further recommendation depending on his response to the treatment. Problems: POPPY PACE MD Jul 26, 2017 20:09
--- NOTE | 2017-07-26 20:30 | CONS ---
Date/Time of Note Date/Time of Note DATE: 07/26/17 TIME: 20:29 Assessment/Plan Assessment/Plan Chief Complaint/Hosp Course Assessment: Hypotension - secondary to sepsis, responding to intravenous fluids Sepsis from urinary tract infection - on antibiotics per infectious disease Acute kidney injury on probable chronic kidney disease Cardiomyopathy, LVEF 20-25% - new diagnosis, unclear etiology, clinically compensated Diabetes mellitus Benign prostate hyperplasia History of stroke (based on head CT findings) Anemia - follow up gastroenterology Recommendations: -intravenous fluid hydration -pressors if needed to keep MAP>65 -will start on aspirin once gastroenterology work up completed -will start carvedilol/lisinopril for systolic heart failure once hypotension improves -will eventually need coronary evaluation (can be done as outpatient) Problems: Consultation Date/Type/Reason Admit Date/Time Jul 23, 2017 at 20:11 Initial Consult Date 07/24/17 Type of Consultation: Cardiology 24 HR Interval Summary Free Text/Dictation Borderline blood pressures, but remains off pressors. Detailed Summary Additional Comments 14 point review of systems without changes. Exam/Review of Systems Vital Signs Vitals Vital Signs Date Time Temp Pulse Resp B/P Pulse Ox O2 Delivery O2 Flow Rate FiO2 07/26/17 16:30 84 17 89/53 95 Room Air 07/26/17 16:00 97.8 07/26/17 01:37 3.0 Intake and Output 07/25/17 07/25/17 07/26/17 15:00 23:00 07:00 Intake Total 300 ml 450 ml 929.995 ml Output Total 525 ml 585 ml 925 ml Balance -225 ml -135 ml 4.995 ml Exam Constitutional: alert, well developed Psych: nl mood/affect, no complaints Head: atraumatic, normocephalic Eyes: nl conjunctiva, nl lids ENMT: nl external ears & nose, nl nasal mucosa & septum Neck: non-tender, supple Respiratory: clear to auscultation, normal air movement Cardiovascular: regular rate and rhythm Gastrointestinal: ascites, soft Musculoskeletal: nl extremities to inspection Extremities: No clubbing, No cyanosis, No edema Neurological: nl mental status, nl speech Results Result Diagram: 07/26/17 0543 07/26/17 0543 Results 24 hrs Laboratory Tests Test 07/25/17 20:32 07/26/17 05:43 07/26/17 08:39 07/26/17 11:34 Bedside Glucose 84 213 188 White Blood Count 10.4 Red Blood Count 2.92 L Hemoglobin 7.9 L Hematocrit 25.0 L Mean Corpuscular Volume 85.6 Mean Corpuscular Hemoglobin 27.1 L Mean Corpuscular Hemoglobin Concent 31.6 L Red Cell Distribution Width 15.9 H Platelet Count 343 # Mean Platelet Volume 9.0 Neutrophils % 83.8 H Lymphocytes % 9.8 L Monocytes % 4.6 Eosinophils % 1.0 Basophils % 0.1 Nucleated Red Blood Cells % 0.0 Neutrophils # 8.8 H Lymphocytes # 1.0 Monocytes # 0.5 Eosinophils # 0.1 Basophils # 0.0 Nucleated Red Blood Cells # 0.0 Sodium Level 140 Potassium Level 4.3 Chloride Level 112 H Carbon Dioxide Level 20 L Anion Gap 12 Blood Urea Nitrogen 38 H Creatinine 2.02 H Glucose Level 119 Calcium Level 8.0 L Phosphorus Level 3.3 Magnesium Level 2.1 Test 07/26/17 18:17 Bedside Glucose 199 Medications Medications Current Medications Sodium Chloride (NS) 1,000 ml @ 100 mls/hr Q10H IV Last administered on 04:25; Admin Dose 100 MLS/HR; Start 07/24/17 at 02:00 Ondansetron HCl (Zofran Inj) 4 mg Q6H PRN IV NAUSEA AND/OR VOMITING; Start 07/24/17 at 05:30 Acetaminophen (Tylenol Tab) 650 mg Q6H PRN PO PAIN LEVEL 1-3 OR FEVER; Start 07/24/17 at 05:30 Morphine Sulfate (morphine) 2 mg Q4H PRN IV PAIN LEVEL 7-10; Start 07/24/17 at 05:30 Ranitidine HCl (Zantac) 150 mg HS PO Last administered on 07/25/17 21:08; Admin Dose 150 MG; Start 07/24/17 at 21:00 Tamsulosin HCl (Flomax) 0.4 mg DAILY@21 PO Last administered on 07/25/17 21:08 ; Admin Dose 0.4 MG; Start 07/24/17 at 21:00 Diagnostic Test (Pha) (Accu-Chek) 1 ea 02 XX ; Start 07/25/17 at 02:00 Insulin Glargine (Lantus) 15 unit DAILY@08 SC Last administered on 07/26/17 08 :51; Admin Dose 15 UNIT; Start 07/24/17 at 08:00 Polyethylene Glycol 17 gm 17 gm BID PRN PO constipation; Start 07/24/17 at 12: 00 Cefepime HCl (Maxipime 1gm/50 ml (Pmx)) 50 ml @ 100 mls/hr Q24H IVPB Last administered on 07/26/17 10:02; Admin Dose 100 MLS/HR; Start 07/25/17 at 09:00 Guaifenesin 200 mg 200 mg Q4H PRN PO cough Last administered on 07/26/17 11:32 ; Admin Dose 200 MG; Start 07/24/17 at 13:30 Ferric Sodium Gluconate Complex 125 mg/Sodium Chloride 110 ml @ 100 mls/hr Q24H IVPB Last administered on 07/26/17 13:54; Admin Dose 100 MLS/HR; Start 07/25/17 at 13:00; Stop 07/27/17 at 14:05 Piperacillin Sod/ Tazobactam Sod 50 ml @ 100 mls/hr Q8 IVPB Last administered on 07/26/17 14:09; Admin Dose 100 MLS/HR; Start 07/25/17 at 14:00 Norepinephrine (Levophed) 250 ml @ 1.875 mls/ hr TITRATE IV Last administered on 07/25/17 22:51; Admin Dose 9.375 MLS/HR; Start 07/25/17 at 20:30 Miscellaneous Information 1 ea NOTE XX ; Start 07/26/17 at 17:00 Glucose (Glutose) 15 gm Q15M PRN PO DECREASED GLUCOSE; Start 07/26/17 at 17:00 Glucose (Glutose) 22.5 gm Q15M PRN PO DECREASED GLUCOSE; Start 07/26/17 at 17: 00 Dextrose (D50w Syringe) 25 ml Q15M PRN IV DECREASED GLUCOSE; Start 07/26/17 at 17:00 Dextrose (D50w Syringe) 50 ml Q15M PRN IV DECREASED GLUCOSE; Start 07/26/17 at 17:00 Glucagon (Glucagen) 1 mg Q15M PRN IM DECREASED GLUCOSE; Start 07/26/17 at 17:00 Glucose (Glutose) 15 gm Q15M PRN BUCCAL DECREASED GLUCOSE; Start 07/26/17 at 17 :00 Lactulose (Enulose) 20 gm Q2H GTB ; Start 07/26/17 at 18:00; Stop 07/27/17 at 00 :01 ABE EDWARDS MD Jul 26, 2017 20:30
[2017-07-26] MEDS: TAMSULOSIN (SR) 0.4 MG CAP PO SCH (21:26)
[2017-07-26] MEDS: RANITIDINE 150 MG TAB PO SCH (21:26)
[2017-07-27] VITALS (20 sets, daily range): BP systolic 90–106; BP diastolic 38–69; PULSE 86–123; RESP 16–27
[2017-07-27] MEDS: SOD CHLORIDE 0.9% 1,000 ML IV SCH ×3 (00:27→20:37)
[2017-07-27] MEDS: LACTULOSE 30ML CUP GTB SCH (00:27)
[2017-07-27] MEDS: ACCU-CHEK XX SCH (01:55)
[2017-07-27] MEDS: PIPER-TAZO 2.25 GM (PMX) 50 ML IVPB SCH ×3 (05:40→20:38)
[2017-07-27 05:47] LABS: BASOPHILS % 0.1 % (0.0-2.0); EOSINOPHILS # 0.1 10^3/ul (0.0-0.5); EOSINOPHILS % 1.1 % (0.0-7.0); HEMATOCRIT 25.5 % (42.0-52.0); HEMOGLOBIN 7.8 g/dl (14.0-18.0); LYMPHOCYTES # 0.9 10^3/ul (0.8-2.9); LYMPHOCYTES % 9.8 % (15.0-51.0); MEAN CORPUSCULAR HEMOGLOBIN 26.8 pg (29.0-33.0); MEAN CORPUSCULAR HGB CONC 30.6 g/dl (32.0-37.0); MEAN CORPUSCULAR VOLUME 87.6 fl (82.0-101.0); MEAN PLATELET VOLUME 9.3 fl (7.4-10.4); MONOCYTE # 0.4 10^3/ul (0.3-0.9); MONOCYTES % 4.4 % (0.0-11.0); NEUTROPHILS % 84.1 % (39.0-77.0); PLATELET COUNT 324 10^3/UL (140-415); RED BLOOD COUNT 2.91 10^6/ul (4.70-6.10); RED CELL DISTRIBUTION WIDTH 16.4 % (11.5-14.5); WHITE BLOOD COUNT 9.5 10^3/ul (4.8-10.8)
[2017-07-27 06:01] LABS: CALCIUM 7.9 mg/dl (8.4-10.2); CREATININE 1.91 mg/dl (0.61-1.24); POTASSIUM 5.1 mmol/L (3.5-5.1)
[2017-07-27] MEDS: INSULIN ASPART [NOVOLOG] 3 ML PEN SC SCH ×4 (08:52→21:02)
[2017-07-27] MEDS: INSULIN GLARGINE [LANtus] 3 ML PEN SC SCH (08:53)
[2017-07-27] MEDS: CEFEPIME 1GM/50 ML (PMX) 50 ML IVPB SCH (08:55)
--- NOTE | 2017-07-27 10:18 | PN ---
Date/Time of Note Date/Time of Note DATE: 07/27/17 TIME: 10:11 Assessment/Plan VTE Prophylaxis VTE Prophylaxis Intervention: SCD's Lines/Catheters IV [facility]ter [facility] ([facility]): Peripheral IV Urinary Cath still in place: Yes Reason Cath still needed: urinary retention Assessment/Plan Chief Complaint/Hosp Course S: Patient off pressor support since yesterday. Patient finally got his dentures. Awaiting possible EGD and colonoscopy for later today, although yesterday patient was refusing it. Denies any dysuria or chest pain. 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 1. Sepsis- secondary to UTI -urine culture shows E. coli and enterococcus greater than 100,000 colony-forming units. -Continue IV fluids -Follow-up final culture results, antibiotics per ID recommendations including Zosyn for now 2. Acute kidney injury - slowly improving -continue IV fluid -Follow-up renal recommendations -Treat UTI abx -Continue Pagan and Flomax for his BPH, follow-up urology recommendations 3.Low ejection fraction: EF equals 20-25% -see echo results -Appreciate cardiology consult, for now continue IV fluids -For cardiology rec's, keep MAP>65 - aspirin once gastroenterology work up completed -will likely start carvedilol/lisinopril for systolic heart failure once hypotension improves -Will likely need coronary evaluation (can be done as outpatient per cardiology) 4. Anemia-also with low iron levels. Hemoglobin today 7.8 -Follow GI recommendations, holding anticoagulants, for EGD and colonoscopy later today patient agrees -Continue iron IV 3 doses total -Follow-up occult stool test results 5. Type 2 diabetes A1c equals 7.6 - Insulin while in-house 6. History of BPH -appreciate urology consult -Continue Flomax, Pagan catheter. Critical care time spent on patient care today equals 40 minutes. Problems: Exam/Review of Systems Vital Signs Vitals Vital Signs Date Time Temp Pulse Resp B/P Pulse Ox O2 Delivery O2 Flow Rate FiO2 07/27/17 09:00 96 25 98/52 94 Room Air 07/27/17 08:00 98.2 07/26/17 21:00 2.0 Intake and Output 07/26/17 07/26/17 07/27/17 14:59 22:59 06:59 Intake Total 850 ml 1010 ml 950 ml Output Total 515 ml 610 ml 780 ml Balance 335 ml 400 ml 170 ml Results Result Diagram: 07/27/17 0433 07/27/17 0433 Results 24 hrs Laboratory Tests Test 07/26/17 11:34 07/26/17 18:17 07/26/17 21:30 07/27/17 01:53 Bedside Glucose 188 199 194 202 Test 07/27/17 04:33 07/27/17 08:50 White Blood Count 9.5 Red Blood Count 2.91 L Hemoglobin 7.8 L Hematocrit 25.5 L Mean Corpuscular Volume 87.6 Mean Corpuscular Hemoglobin 26.8 L Mean Corpuscular Hemoglobin Concent 30.6 L Red Cell Distribution Width 16.4 H Platelet Count 324 Mean Platelet Volume 9.3 Neutrophils % 84.1 H Lymphocytes % 9.8 L Monocytes % 4.4 Eosinophils % 1.1 Basophils % 0.1 Nucleated Red Blood Cells % 0.0 Neutrophils # 8.0 H Lymphocytes # 0.9 Monocytes # 0.4 Eosinophils # 0.1 Basophils # 0.0 Nucleated Red Blood Cells # 0.0 Sodium Level 141 Potassium Level 5.1 Chloride Level 113 H Carbon Dioxide Level 19 L Anion Gap 14 Blood Urea Nitrogen 35 H Creatinine 1.91 H Glucose Level 205 Calcium Level 7.9 L Bedside Glucose 199 Medications Medications Current Medications Sodium Chloride (NS) 1,000 ml @ 100 mls/hr Q10H IV Last administered on t 10:00; Admin Dose 100 MLS/HR; Start 07/24/17 at 02:00 Ondansetron HCl (Zofran Inj) 4 mg Q6H PRN IV NAUSEA AND/OR VOMITING; Start 07/24/17 at 05:30 Acetaminophen (Tylenol Tab) 650 mg Q6H PRN PO PAIN LEVEL 1-3 OR FEVER; Start 07/24/17 at 05:30 Morphine Sulfate (morphine) 2 mg Q4H PRN IV PAIN LEVEL 7-10; Start 07/24/17 at 05:30 Ranitidine HCl (Zantac) 150 mg HS PO Last administered on 07/26/17 21:26; Admin Dose 150 MG; Start 07/24/17 at 21:00 Tamsulosin HCl (Flomax) 0.4 mg DAILY@21 PO Last administered on 07/26/17 21:26 ; Admin Dose 0.4 MG; Start 07/24/17 at 21:00 Diagnostic Test (Pha) (Accu-Chek) 1 ea 02 XX ; Start 07/25/17 at 02:00 Insulin Glargine (Lantus) 15 unit DAILY@08 SC Last administered on 07/27/17 08 :53; Admin Dose 15 UNIT; Start 07/24/17 at 08:00 Polyethylene Glycol 17 gm 17 gm BID PRN PO constipation; Start 07/24/17 at 12: 00 Cefepime HCl (Maxipime 1gm/50 ml (Pmx)) 50 ml @ 100 mls/hr Q24H IVPB Last administered on 07/27/17 08:55; Admin Dose 100 MLS/HR; Start 07/25/17 at 09:00 Guaifenesin 200 mg 200 mg Q4H PRN PO cough Last administered on 07/26/17 11:32 ; Admin Dose 200 MG; Start 07/24/17 at 13:30 Ferric Sodium Gluconate Complex 125 mg/Sodium Chloride 110 ml @ 100 mls/hr Q24H IVPB Last administered on 07/26/17 13:54; Admin Dose 100 MLS/HR; Start 07/25/17 at 13:00; Stop 07/27/17 at 14:05 Piperacillin Sod/ Tazobactam Sod 50 ml @ 100 mls/hr Q8 IVPB Last administered on 07/27/17 05:40; Admin Dose 100 MLS/HR; Start 07/25/17 at 14:00 Norepinephrine (Levophed) 250 ml @ 1.875 mls/ hr TITRATE IV Last administered on 07/25/17 22:51; Admin Dose 9.375 MLS/HR; Start 07/25/17 at 20:30 Miscellaneous Information 1 ea NOTE XX ; Start 07/26/17 at 17:00 Glucose (Glutose) 15 gm Q15M PRN PO DECREASED GLUCOSE; Start 07/26/17 at 17:00 Glucose (Glutose) 22.5 gm Q15M PRN PO DECREASED GLUCOSE; Start 07/26/17 at 17: 00 Dextrose (D50w Syringe) 25 ml Q15M PRN IV DECREASED GLUCOSE; Start 07/26/17 at 17:00 Dextrose (D50w Syringe) 50 ml Q15M PRN IV DECREASED GLUCOSE; Start 07/26/17 at 17:00 Glucagon (Glucagen) 1 mg Q15M PRN IM DECREASED GLUCOSE; Start 07/26/17 at 17:00 Glucose (Glutose) 15 gm Q15M PRN BUCCAL DECREASED GLUCOSE; Start 07/26/17 at 17 :00 JESSE TINOCO Jul 27, 2017 10:18
--- NOTE | 2017-07-27 11:26 | CONS ---
Date/Time of Note Date/Time of Note DATE: 07/27/17 TIME: 11:26 Assessment/Plan Assessment/Plan Chief Complaint/Hosp Course ID PROGRESS NOTE TOTAL ABX DAY # 4 CURRENT ABX=> *Zosyn HOSPITAL COURSE => Chart reviewed 24H INTERVAL SUMMARY * 82 yo M resting comfortably on room air w/eyes closed, VSS, NAD, without dyspnea, FC draining clear yellow urine * 07/24/17 Urine Cx from FC: ENTEROCOCCUS ENT SPS M.I.C. RX --------- --- AMPICILLIN <=2 S CIPROFLOXACIN <=0.5 S LEVOFLOXACIN 1 S PENICILLIN-G 2 S VANCOMYCIN S EXAM GENERAL: Afebrile, VSS, calm, lethargic HEENT: Left forehead/scalp red skin hyperpigmentation NECK: Supple, trachea midline. CHEST: Equal chest rise bilaterally, without dyspnea on observation HEART: Pulse RRR ABDOMEN: Soft : NL w/FC draining clear yellow urine EXTREMITIES: Warm, moves extremities ID ASSESSMENT 82 yo M admit with: 1. Sepsis with symptomatic hypotension, off Levophed drip=> RESOLVED * 07/23/17 BCX (-) * WBC normalized 2. Polymicrobial urinary tract infection * 07/24/17 FC: URINE CULTURE Final ENTEROCOCCUS SPECIES >100,000 CFU/ml * 07/23/17 URINE CULTURE Final Organism 1 ESCHERICHIA COLI COLONY COUNT >100,000 CFU/ml Organism 2 ENTEROCOCCUS SPECIES COLONY COUNT >100,000 CFU/ml Organism 3 PROTEUS MIRABILIS COLONY COUNT >100,000 CFU/ml 3. Benign prostatic hypertrophy. 4. Malposition of Pagan catheter, urology on case, status post Pagan catheter adjusted. 5. Anemia. 6. Diabetes. 7. Acute possibly on chronic kidney disease. 8. Status post fall. (-)MRSA Nares INVASIVES: PIV, FC ABX ALLERGY: KNDA CURRENT ABX=>Zosyn #3 s/p Cefepime 02/20 - 02/22 ID RECOMMENDATIONS 1. Continue Zosyn over the weekend will see if he is ready for taper to PO on f/ u . Problems: Consultation Date/Type/Reason Admit Date/Time Jul 23, 2017 at 20:11 Initial Consult Date 07/24/17 Type of Consultation: ID Exam/Review of Systems Vital Signs Vitals Vital Signs Date Time Temp Pulse Resp B/P Pulse Ox O2 Delivery O2 Flow Rate FiO2 07/27/17 09:00 96 25 98/52 94 Room Air 07/27/17 08:00 98.2 07/26/17 21:00 2.0 Intake and Output 07/26/17 07/26/17 07/27/17 15:00 23:00 07:00 Intake Total 1110 ml 850 ml 950 ml Output Total 665 ml 560 ml 680 ml Balance 445 ml 290 ml 270 ml Results Result Diagram: 07/27/17 0433 07/27/17 043 Results 24 hrs Laboratory Tests Test 07/26/17 11:34 07/26/17 18:17 07/26/17 21:30 07/27/17 01:53 Bedside Glucose 188 199 194 202 Test 07/27/17 04:33 07/27/17 08:50 White Blood Count 9.5 Red Blood Count 2.91 L Hemoglobin 7.8 L Hematocrit 25.5 L Mean Corpuscular Volume 87.6 Mean Corpuscular Hemoglobin 26.8 L Mean Corpuscular Hemoglobin Concent 30.6 L Red Cell Distribution Width 16.4 H Platelet Count 324 Mean Platelet Volume 9.3 Neutrophils % 84.1 H Lymphocytes % 9.8 L Monocytes % 4.4 Eosinophils % 1.1 Basophils % 0.1 Nucleated Red Blood Cells % 0.0 Neutrophils # 8.0 H Lymphocytes # 0.9 Monocytes # 0.4 Eosinophils # 0.1 Basophils # 0.0 Nucleated Red Blood Cells # 0.0 Sodium Level 141 Potassium Level 5.1 Chloride Level 113 H Carbon Dioxide Level 19 L Anion Gap 14 Blood Urea Nitrogen 35 H Creatinine 1.91 H Glucose Level 205 Calcium Level 7.9 L Bedside Glucose 199 Medications Medications Current Medications Sodium Chloride (NS) 1,000 ml @ 100 mls/hr Q10H IV Last administered on t 10:00; Admin Dose 100 MLS/HR; Start 07/24/17 at 02:00 Ondansetron HCl (Zofran Inj) 4 mg Q6H PRN IV NAUSEA AND/OR VOMITING; Start 07/24/17 at 05:30 Acetaminophen (Tylenol Tab) 650 mg Q6H PRN PO PAIN LEVEL 1-3 OR FEVER; Start 07/24/17 at 05:30 Morphine Sulfate (morphine) 2 mg Q4H PRN IV PAIN LEVEL 7-10; Start 07/24/17 at 05:30 Ranitidine HCl (Zantac) 150 mg HS PO Last administered on 07/26/17 21:26; Admin Dose 150 MG; Start 07/24/17 at 21:00 Tamsulosin HCl (Flomax) 0.4 mg DAILY@21 PO Last administered on 07/26/17 21:26 ; Admin Dose 0.4 MG; Start 07/24/17 at 21:00 Diagnostic Test (Pha) (Accu-Chek) 1 ea 02 XX ; Start 07/25/17 at 02:00 Insulin Glargine (Lantus) 15 unit DAILY@08 SC Last administered on 07/27/17 08 :53; Admin Dose 15 UNIT; Start 07/24/17 at 08:00 Polyethylene Glycol 17 gm 17 gm BID PRN PO constipation; Start 07/24/17 at 12: 00 Cefepime HCl (Maxipime 1gm/50 ml (Pmx)) 50 ml @ 100 mls/hr Q24H IVPB Last administered on 07/27/17 08:55; Admin Dose 100 MLS/HR; Start 07/25/17 at 09:00 Guaifenesin 200 mg 200 mg Q4H PRN PO cough Last administered on 07/26/17 11:32 ; Admin Dose 200 MG; Start 07/24/17 at 13:30 Ferric Sodium Gluconate Complex 125 mg/Sodium Chloride 110 ml @ 100 mls/hr Q24H IVPB Last administered on 07/26/17 13:54; Admin Dose 100 MLS/HR; Start 07/25/17 at 13:00; Stop 07/27/17 at 14:05 Piperacillin Sod/ Tazobactam Sod 50 ml @ 100 mls/hr Q8 IVPB Last administered on 07/27/17 05:40; Admin Dose 100 MLS/HR; Start 07/25/17 at 14:00 Norepinephrine (Levophed) 250 ml @ 1.875 mls/ hr TITRATE IV Last administered on 07/25/17 22:51; Admin Dose 9.375 MLS/HR; Start 07/25/17 at 20:30 Miscellaneous Information 1 ea NOTE XX ; Start 07/26/17 at 17:00 Glucose (Glutose) 15 gm Q15M PRN PO DECREASED GLUCOSE; Start 07/26/17 at 17:00 Glucose (Glutose) 22.5 gm Q15M PRN PO DECREASED GLUCOSE; Start 07/26/17 at 17: 00 Dextrose (D50w Syringe) 25 ml Q15M PRN IV DECREASED GLUCOSE; Start 07/26/17 at 17:00 Dextrose (D50w Syringe) 50 ml Q15M PRN IV DECREASED GLUCOSE; Start 07/26/17 at 17:00 Glucagon (Glucagen) 1 mg Q15M PRN IM DECREASED GLUCOSE; Start 07/26/17 at 17:00 Glucose (Glutose) 15 gm Q15M PRN BUCCAL DECREASED GLUCOSE; Start 07/26/17 at 17 :00 ANNIE MILIAN NP Jul 27, 2017 11:26
--- NOTE | 2017-07-27 11:57 | CONS ---
Date/Time of Note Date/Time of Note DATE: 07/27/17 TIME: 11:56 Assessment/Plan Assessment/Plan Additional Assessment/Plan 2 yo Male with 1) TANNER on CKD, Appears to have chronic outlet obstruction with mild B/L [place] 2) Renal Cyst with Chronic Kidney disease appearance on Renal US 3) Prostatomegaly 4) Urosepsis 5) B/l PNA 6) Lactic Acidosis 7) Severe Anemia 8) Hypotension 9) Pre Renal Azotemia, Dehydration 10) Hyponatremia- resolved Renal functon continues to improve Electrolytes Ok Cont with IVFS ON IV Abx Repeat chemistry in am Will cont to monitor UO Electrolytes and renal function Consultation Date/Type/Reason Admit Date/Time Jul 23, 2017 at 20:11 Initial Consult Date 07/24/17 Type of Consultation: Renal 24 HR Interval Summary Subjective hx not possible: pt critical status Constitutional: No requiring O2 Exam/Review of Systems Vital Signs Vitals Vital Signs Date Time Temp Pulse Resp B/P Pulse Ox O2 Delivery O2 Flow Rate FiO2 07/27/17 09:00 96 25 98/52 94 Room Air 07/27/17 08:00 98.2 07/26/17 21:00 2.0 Intake and Output 07/26/17 07/26/17 07/27/17 15:00 23:00 07:00 Intake Total 1110 ml 850 ml 950 ml Output Total 665 ml 560 ml 680 ml Balance 445 ml 290 ml 270 ml Exam Constitutional: alert, No distress ENMT: mucosa pink and moist Respiratory: crackles/rales, No diminished breath sounds, No labored breathing Cardiovascular: regular rate and rhythm, No edema Gastrointestinal: soft Genitourinary - Male: other (blackman) Extremities: No edema Neurological: No confused, No lethargic Results Result Diagram: 07/27/17 0433 07/27/17 0433 Results 24 hrs Laboratory Tests Test 07/26/17 18:17 07/26/17 21:30 07/27/17 01:53 07/27/17 04:33 Bedside Glucose 199 194 202 White Blood Count 9.5 Red Blood Count 2.91 L Hemoglobin 7.8 L Hematocrit 25.5 L Mean Corpuscular Volume 87.6 Mean Corpuscular Hemoglobin 26.8 L Mean Corpuscular Hemoglobin Concent 30.6 L Red Cell Distribution Width 16.4 H Platelet Count 324 Mean Platelet Volume 9.3 Neutrophils % 84.1 H Lymphocytes % 9.8 L Monocytes % 4.4 Eosinophils % 1.1 Basophils % 0.1 Nucleated Red Blood Cells % 0.0 Neutrophils # 8.0 H Lymphocytes # 0.9 Monocytes # 0.4 Eosinophils # 0.1 Basophils # 0.0 Nucleated Red Blood Cells # 0.0 Sodium Level 141 Potassium Level 5.1 Chloride Level 113 H Carbon Dioxide Level 19 L Anion Gap 14 Blood Urea Nitrogen 35 H Creatinine 1.91 H Glucose Level 205 Calcium Level 7.9 L Test 07/27/17 08:50 07/27/17 11:36 Bedside Glucose 199 202 Medications Medications Current Medications Sodium Chloride (NS) 1,000 ml @ 100 mls/hr Q10H IV Last administered on 10:00; Admin Dose 100 MLS/HR; Start 07/24/17 at 02:00 Ondansetron HCl (Zofran Inj) 4 mg Q6H PRN IV NAUSEA AND/OR VOMITING; Start 07/24/17 at 05:30 Acetaminophen (Tylenol Tab) 650 mg Q6H PRN PO PAIN LEVEL 1-3 OR FEVER; Start 07/24/17 at 05:30 Morphine Sulfate (morphine) 2 mg Q4H PRN IV PAIN LEVEL 7-10; Start 07/24/17 at 05:30 Ranitidine HCl (Zantac) 150 mg HS PO Last administered on 07/26/17 21:26; Admin Dose 150 MG; Start 07/24/17 at 21:00 Tamsulosin HCl (Flomax) 0.4 mg DAILY@21 PO Last administered on 07/26/17 21:26 ; Admin Dose 0.4 MG; Start 07/24/17 at 21:00 Diagnostic Test (Pha) (Accu-Chek) 1 ea 02 XX ; Start 07/25/17 at 02:00 Insulin Glargine (Lantus) 15 unit DAILY@08 SC Last administered on 07/27/17 08 :53; Admin Dose 15 UNIT; Start 07/24/17 at 08:00 Polyethylene Glycol 17 gm 17 gm BID PRN PO constipation; Start 07/24/17 at 12: 00 Cefepime HCl (Maxipime 1gm/50 ml (Pmx)) 50 ml @ 100 mls/hr Q24H IVPB Last administered on 07/27/17 08:55; Admin Dose 100 MLS/HR; Start 07/25/17 at 09:00 Guaifenesin 200 mg 200 mg Q4H PRN PO cough Last administered on 07/26/17 11:32 ; Admin Dose 200 MG; Start 07/24/17 at 13:30 Ferric Sodium Gluconate Complex 125 mg/Sodium Chloride 110 ml @ 100 mls/hr Q24H IVPB Last administered on 07/26/17 13:54; Admin Dose 100 MLS/HR; Start 07/25/17 at 13:00; Stop 07/27/17 at 14:05 Piperacillin Sod/ Tazobactam Sod 50 ml @ 100 mls/hr Q8 IVPB Last administered on 07/27/17 05:40; Admin Dose 100 MLS/HR; Start 07/25/17 at 14:00 Norepinephrine (Levophed) 250 ml @ 1.875 mls/ hr TITRATE IV Last administered on 07/25/17 22:51; Admin Dose 9.375 MLS/HR; Start 07/25/17 at 20:30 Miscellaneous Information 1 ea NOTE XX ; Start 07/26/17 at 17:00 Glucose (Glutose) 15 gm Q15M PRN PO DECREASED GLUCOSE; Start 07/26/17 at 17:00 Glucose (Glutose) 22.5 gm Q15M PRN PO DECREASED GLUCOSE; Start 07/26/17 at 17: 00 Dextrose (D50w Syringe) 25 ml Q15M PRN IV DECREASED GLUCOSE; Start 07/26/17 at 17:00 Dextrose (D50w Syringe) 50 ml Q15M PRN IV DECREASED GLUCOSE; Start 07/26/17 at 17:00 Glucagon (Glucagen) 1 mg Q15M PRN IM DECREASED GLUCOSE; Start 07/26/17 at 17:00 Glucose (Glutose) 15 gm Q15M PRN BUCCAL DECREASED GLUCOSE; Start 07/26/17 at 17 :00 CHICHI CORBETT MD Jul 27, 2017 11:57
[2017-07-27] MEDS: SOD FERRIC GLUC COMPLX 125 MG in SOD CHLORIDE 0.9% 100 ML IVPB SCH (12:37)
--- NOTE | 2017-07-27 13:51 | PN ---
Date/Time of Note Date/Time of Note DATE: 07/27/17 TIME: 13:47 Assessment/Plan VTE Prophylaxis VTE Prophylaxis Intervention: SCD's Lines/Catheters IV Catheter Type (from Nrs): Peripheral IV Urinary Cath still in place: Yes Reason Cath still needed: other (indicate) (monitor output) Assessment/Plan Chief Complaint/Hosp Course Assessment: Anemia Chronic disease vs acute LIDA S/p fall with head abrasion UTI- on antibiotics DM Presumed TANNER History of BPH Plan: EGD/colonoscopy postponed as anesthesia refuses to sedate him as he is not oriented to place Subjective: Course reviewed with nursing staff Patient interviewed and examined All labs, imaging and other results reviewed The patient resting in bed, unfortunately I am not able to provide needed patient care We'll remain available once able to proceed with medically necessary care PHYSICAL EXAMINATION: GENERAL: Well developed, alert & oriented x 3, SKIN: No lesions, no stigmata chronic liver disease, no evidence of bleeding diathesis LYMPHATIC: No palpable lymphadenopathy. HEAD: Normocephalic, atraumatic, no tenderness. EYES: Pupils equal reactive to light and accommodation, full extraocular movements, sclera clear, non-icteric, no discharge. EARS/NOSE AND THROAT: Ears normal, nose normal, oropharynx normal, oral membranes well hydrated without lesions. NECK: Supple, no masses, CHEST: Inspection within normal limits. CARDIOVASCULAR: Heart: Regular rate and rhythm, no murmurs, gallops or rubs. GASTROINTESTINAL AND LIVER: Abdomen: Soft, non tenderness, non-distended, no hernias, no masses, no organomegaly, no ascites, no guarding, no rebound tenderness, normoactive bowel sounds. Rectal: Deferred. GENITOURINARY: Male genitalia within normal limits. EXTREMITIES: No cyanosis, clubbing or edema. Problems: Exam/Review of Systems Vital Signs Vitals Vital Signs Date Time Temp Pulse Resp B/P Pulse Ox O2 Delivery O2 Flow Rate FiO2 07/27/17 12:00 98.4 93 20 97/57 96 Room Air 07/26/17 21:00 2.0 Intake and Output 07/26/17 07/26/17 07/27/17 15:00 23:00 07:00 Intake Total 1110 ml 850 ml 950 ml Output Total 665 ml 560 ml 680 ml Balance 445 ml 290 ml 270 ml Results Result Diagram: 07/27/17 0433 07/27/17 0433 Results 24 hrs Laboratory Tests Test 07/26/17 18:17 07/26/17 21:30 07/27/17 01:53 07/27/17 04:33 Bedside Glucose 199 194 202 White Blood Count 9.5 Red Blood Count 2.91 L Hemoglobin 7.8 L Hematocrit 25.5 L Mean Corpuscular Volume 87.6 Mean Corpuscular Hemoglobin 26.8 L Mean Corpuscular Hemoglobin Concent 30.6 L Red Cell Distribution Width 16.4 H Platelet Count 324 Mean Platelet Volume 9.3 Neutrophils % 84.1 H Lymphocytes % 9.8 L Monocytes % 4.4 Eosinophils % 1.1 Basophils % 0.1 Nucleated Red Blood Cells % 0.0 Neutrophils # 8.0 H Lymphocytes # 0.9 Monocytes # 0.4 Eosinophils # 0.1 Basophils # 0.0 Nucleated Red Blood Cells # 0.0 Sodium Level 141 Potassium Level 5.1 Chloride Level 113 H Carbon Dioxide Level 19 L Anion Gap 14 Blood Urea Nitrogen 35 H Creatinine 1.91 H Glucose Level 205 Calcium Level 7.9 L Test 07/27/17 08:50 07/27/17 11:36 Bedside Glucose 199 202 Medications Medications Current Medications Sodium Chloride (NS) 1,000 ml @ 100 mls/hr Q10H IV Last administered on 10:00; Admin Dose 100 MLS/HR; Start 07/24/17 at 02:00 Ondansetron HCl (Zofran Inj) 4 mg Q6H PRN IV NAUSEA AND/OR VOMITING; Start 07/24/17 at 05:30 Acetaminophen (Tylenol Tab) 650 mg Q6H PRN PO PAIN LEVEL 1-3 OR FEVER; Start 07/24/17 at 05:30 Morphine Sulfate (morphine) 2 mg Q4H PRN IV PAIN LEVEL 7-10; Start 07/24/17 at 05:30 Ranitidine HCl (Zantac) 150 mg HS PO Last administered on 07/26/17 21:26; Admin Dose 150 MG; Start 07/24/17 at 21:00 Tamsulosin HCl (Flomax) 0.4 mg DAILY@21 PO Last administered on 07/26/17 21:26 ; Admin Dose 0.4 MG; Start 07/24/17 at 21:00 Diagnostic Test (Pha) (Accu-Chek) 1 ea 02 XX ; Start 07/25/17 at 02:00 Insulin Glargine (Lantus) 15 unit DAILY@08 SC Last administered on 07/27/17 08 :53; Admin Dose 15 UNIT; Start 07/24/17 at 08:00 Polyethylene Glycol 17 gm 17 gm BID PRN PO constipation; Start 07/24/17 at 12: 00 Cefepime HCl (Maxipime 1gm/50 ml (Pmx)) 50 ml @ 100 mls/hr Q24H IVPB Last administered on 07/27/17 08:55; Admin Dose 100 MLS/HR; Start 07/25/17 at 09:00 Guaifenesin 200 mg 200 mg Q4H PRN PO cough Last administered on 07/26/17 11:32 ; Admin Dose 200 MG; Start 07/24/17 at 13:30 Ferric Sodium Gluconate Complex 125 mg/Sodium Chloride 110 ml @ 100 mls/hr Q24H IVPB Last administered on 07/27/17 12:37; Admin Dose 100 MLS/HR; Start 07/25/17 at 13:00; Stop 07/27/17 at 14:05 Piperacillin Sod/ Tazobactam Sod 50 ml @ 100 mls/hr Q8 IVPB Last administered on 07/27/17 05:40; Admin Dose 100 MLS/HR; Start 07/25/17 at 14:00 Norepinephrine (Levophed) 250 ml @ 1.875 mls/ hr TITRATE IV Last administered on 07/25/17 22:51; Admin Dose 9.375 MLS/HR; Start 07/25/17 at 20:30 Miscellaneous Information 1 ea NOTE XX ; Start 07/26/17 at 17:00 Glucose (Glutose) 15 gm Q15M PRN PO DECREASED GLUCOSE; Start 07/26/17 at 17:00 Glucose (Glutose) 22.5 gm Q15M PRN PO DECREASED GLUCOSE; Start 07/26/17 at 17: 00 Dextrose (D50w Syringe) 25 ml Q15M PRN IV DECREASED GLUCOSE; Start 07/26/17 at 17:00 Dextrose (D50w Syringe) 50 ml Q15M PRN IV DECREASED GLUCOSE; Start 07/26/17 at 17:00 Glucagon (Glucagen) 1 mg Q15M PRN IM DECREASED GLUCOSE; Start 07/26/17 at 17:00 Glucose (Glutose) 15 gm Q15M PRN BUCCAL DECREASED GLUCOSE; Start 07/26/17 at 17 :00 JONAS COLINDRES MD Jul 27, 2017 13:51
[2017-07-27] MEDS: TAMSULOSIN (SR) 0.4 MG CAP PO SCH (20:38)
[2017-07-27] MEDS: RANITIDINE 150 MG TAB PO SCH (20:38)
--- NOTE | 2017-07-27 22:07 | CONS ---
Date/Time of Note Date/Time of Note DATE: 07/27/17 TIME: 21:59 Consult Date/Type/Reason Admit Date/Time Jul 23, 2017 at 20:11 Initial Consult Date 07/24/17 Type of Consultation: Urology Reason for Consultation urinary retention and urinary tract infection Ordering Provider: ARNOLD HUTCHISON MD Subjective Patient is comfortable and denies any pain. Objective Vital Signs Date Time Temp Pulse Resp B/P Pulse Ox O2 Delivery O2 Flow Rate FiO2 07/27/17 20:22 89 07/27/17 19:03 97.6 18 91/53 92 07/27/17 14:00 Room Air 07/26/17 21:00 2.0 Intake and Output 07/26/17 07/26/17 07/27/17 14:59 22:59 06:59 Intake Total 850 ml 1010 ml 950 ml Output Total 515 ml 610 ml 780 ml Balance 335 ml 400 ml 170 ml Exam contractures of all extremities Results/Medications Result Diagram: 07/27/17 0433 07/27/17 0433 Results 24 hrs Laboratory Tests Test 07/27/17 01:53 07/27/17 04:33 07/27/17 08:50 07/27/17 11:36 Bedside Glucose 202 199 202 White Blood Count 9.5 Red Blood Count 2.91 L Hemoglobin 7.8 L Hematocrit 25.5 L Mean Corpuscular Volume 87.6 Mean Corpuscular Hemoglobin 26.8 L Mean Corpuscular Hemoglobin Concent 30.6 L Red Cell Distribution Width 16.4 H Platelet Count 324 Mean Platelet Volume 9.3 Neutrophils % 84.1 H Lymphocytes % 9.8 L Monocytes % 4.4 Eosinophils % 1.1 Basophils % 0.1 Nucleated Red Blood Cells % 0.0 Neutrophils # 8.0 H Lymphocytes # 0.9 Monocytes # 0.4 Eosinophils # 0.1 Basophils # 0.0 Nucleated Red Blood Cells # 0.0 Sodium Level 141 Potassium Level 5.1 Chloride Level 113 H Carbon Dioxide Level 19 L Anion Gap 14 Blood Urea Nitrogen 35 H Creatinine 1.91 H Glucose Level 205 Calcium Level 7.9 L Test 07/27/17 15:36 07/27/17 16:56 07/27/17 20:39 Stool Occult Blood NEGATIVE Bedside Glucose 225 H 258 H Medications Current Medications Sodium Chloride (NS) 1,000 ml @ 100 mls/hr Q10H IV Last administered on 20:37; Admin Dose 100 MLS/HR; Start 07/24/17 at 02:00 Ondansetron HCl (Zofran Inj) 4 mg Q6H PRN IV NAUSEA AND/OR VOMITING; Start 07/24/17 at 05:30 Acetaminophen (Tylenol Tab) 650 mg Q6H PRN PO PAIN LEVEL 1-3 OR FEVER; Start 07/24/17 at 05:30 Morphine Sulfate (morphine) 2 mg Q4H PRN IV PAIN LEVEL 7-10; Start 07/24/17 at 05:30 Ranitidine HCl (Zantac) 150 mg HS PO Last administered on 07/27/17 20:38; Admin Dose 150 MG; Start 07/24/17 at 21:00 Tamsulosin HCl (Flomax) 0.4 mg DAILY@21 PO Last administered on 07/27/17 20:38 ; Admin Dose 0.4 MG; Start 07/24/17 at 21:00 Diagnostic Test (Pha) (Accu-Chek) 1 ea 02 XX ; Start 07/25/17 at 02:00 Insulin Glargine (Lantus) 15 unit DAILY@08 SC Last administered on 07/27/17 08 :53; Admin Dose 15 UNIT; Start 07/24/17 at 08:00 Polyethylene Glycol 17 gm 17 gm BID PRN PO constipation; Start 07/24/17 at 12: 00 Cefepime HCl (Maxipime 1gm/50 ml (Pmx)) 50 ml @ 100 mls/hr Q24H IVPB Last administered on 07/27/17 08:55; Admin Dose 100 MLS/HR; Start 07/25/17 at 09:00 Guaifenesin 200 mg 200 mg Q4H PRN PO cough Last administered on 07/26/17 11:32 ; Admin Dose 200 MG; Start 07/24/17 at 13:30 Piperacillin Sod/ Tazobactam Sod (Zosyn 2.25gm/ 50ml (Pmx)) 50 ml @ 100 mls/hr Q8 IVPB Last administered on 07/27/17 20:38; Admin Dose 100 MLS/HR; Start 07/25/17 at 14:00 Miscellaneous Information 1 ea NOTE XX ; Start 07/26/17 at 17:00 Glucose (Glutose) 15 gm Q15M PRN PO DECREASED GLUCOSE; Start 07/26/17 at 17:00 Glucose (Glutose) 22.5 gm Q15M PRN PO DECREASED GLUCOSE; Start 07/26/17 at 17: 00 Dextrose (D50w Syringe) 25 ml Q15M PRN IV DECREASED GLUCOSE; Start 07/26/17 at 17:00 Dextrose (D50w Syringe) 50 ml Q15M PRN IV DECREASED GLUCOSE; Start 07/26/17 at 17:00 Glucagon (Glucagen) 1 mg Q15M PRN IM DECREASED GLUCOSE; Start 07/26/17 at 17:00 Glucose (Glutose) 15 gm Q15M PRN BUCCAL DECREASED GLUCOSE; Start 07/26/17 at 17 :00 Assessment/Plan Chief Complaint/Hosp Course 82-year-old male fell at home and came into the emergency room.He was found to have anemia and elevated creatinine. Renal ultrasound was done and that showed debris within the bladder. Nursing staff inserted a Pagan catheter however the CT scan done after that showed bilateral hydronephrosis and urinary retention and the balloon of the Pagan catheter inside the prostatic urethra. Therefore the Pagan catheter was removed. The patient himself is not very clear about his urological history but he is known to have a history of BPH and the CT scan did show a large prostate and it measured about [address] scan. I therefore inserted a 16 [place] coud catheter and drained the bladder the initial urine came out clear then it became very cloudy and very purulent at the end. The culture did show enterococcus. We will keep the Pagan catheter and continue the antibiotic and monitor his renal function. The creatinine is improving very slowly. Also we will continue the tamsulosin. The PSA was 0.9 . I will follow his urological problem with you and further recommendation depending on his response to the treatment.His renal function is improving Problems: POPPY PACE MD Jul 27, 2017 22:07
[2017-07-28] VITALS (11 sets, daily range): BP systolic 92–117; BP diastolic 53–56; PULSE 79–107; RESP 18
[2017-07-28] MEDS: ACCU-CHEK XX SCH (02:00)
[2017-07-28] MEDS: PIPER-TAZO 2.25 GM (PMX) 50 ML IVPB SCH ×3 (04:52→21:36)
[2017-07-28] MEDS: SOD CHLORIDE 0.9% 1,000 ML IV SCH (04:52)
[2017-07-28] MEDS: CEFEPIME 1GM/50 ML (PMX) 50 ML IVPB SCH (08:14)
[2017-07-28] MEDS: INSULIN ASPART [NOVOLOG] 3 ML PEN SC SCH ×4 (08:20→21:35)
[2017-07-28] MEDS: INSULIN GLARGINE [LANtus] 3 ML PEN SC SCH (08:21)
[2017-07-28 10:33] LABS: BASOPHILS % 0.1 % (0.0-2.0); EOSINOPHILS # 0.1 10^3/ul (0.0-0.5); EOSINOPHILS % 1.3 % (0.0-7.0); HEMOGLOBIN 7.8 g/dl (14.0-18.0); LYMPHOCYTES # 0.8 10^3/ul (0.8-2.9); LYMPHOCYTES % 9.5 % (15.0-51.0); MEAN CORPUSCULAR HEMOGLOBIN 27.4 pg (29.0-33.0); MEAN CORPUSCULAR HGB CONC 31.2 g/dl (32.0-37.0); MEAN CORPUSCULAR VOLUME 87.7 fl (82.0-101.0); MEAN PLATELET VOLUME 8.7 fl (7.4-10.4); MONOCYTE # 0.5 10^3/ul (0.3-0.9); MONOCYTES % 6.1 % (0.0-11.0); NEUTROPHIL # 6.5 10^3/ul (1.6-7.5); NEUTROPHILS % 82.4 % (39.0-77.0); PLATELET COUNT 337 10^3/UL (140-415); RED BLOOD COUNT 2.85 10^6/ul (4.70-6.10); RED CELL DISTRIBUTION WIDTH 16.5 % (11.5-14.5); WHITE BLOOD COUNT 7.9 10^3/ul (4.8-10.8)
[2017-07-28 10:53] LABS: CALCIUM 7.8 mg/dl (8.4-10.2); CREATININE 1.81 mg/dl (0.61-1.24); POTASSIUM 4.4 mmol/L (3.5-5.1)
--- NOTE | 2017-07-28 11:57 | PN ---
Date/Time of Note Date/Time of Note DATE: 07/28/17 TIME: 11:55 Assessment/Plan VTE Prophylaxis VTE Prophylaxis Intervention: SCD's Lines/Catheters IV [facility] Saline Lock Urinary Cath still in place: Yes Reason Cath still needed: urinary retention Assessment/Plan Chief Complaint/Hosp Course S: Patient off pressor support, out of ICU now. Not able to get EGD and colonoscopy yesterday because was not able to consent for procedure. 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 1. Sepsis- secondary to UTI -urine culture shows E. coli, Proteus, and enterococcus greater than 100,000 colony-forming units. -Continue IV fluids -Follow-up final culture results, antibiotics per ID recommendations including Zosyn for now 2. Acute kidney injury - slowly improving -continue IV fluid -Follow-up renal recommendations -Treat UTI abx -Continue Pagan and Flomax for his BPH, follow-up urology recommendations 3.Low ejection fraction: EF equals 20-25% -see echo results -Appreciate cardiology consult, for now continue IV fluids -For cardiology rec's, keep MAP>65 - aspirin once gastroenterology work up completed -will likely start carvedilol/lisinopril for systolic heart failure once hypotension improves -Will likely need coronary evaluation (can be done as outpatient per cardiology) 4. Anemia-also with low iron levels. Hemoglobin today 7.8 -Follow GI recommendations, holding anticoagulants, for EGD and colonoscopy if can get consented -Continue iron IV 3 doses total -Follow-up occult stool test results 5. Type 2 diabetes A1c equals 7.6 - Insulin while in-house 6. History of BPH -appreciate urology consult -Continue Flomax, Pagan catheter. Problems: Exam/Review of Systems Vital Signs Vitals Vital Signs Date Time Temp Pulse Resp B/P Pulse Ox O2 Delivery O2 Flow Rate FiO2 07/28/17 08:30 107 07/28/17 08:00 Nasal Cannula 2.0 07/28/17 07:10 97.6 18 96/53 98 Intake and Output 07/27/17 07/27/17 07/28/17 14:59 22:59 06:59 Intake Total 900 ml 1150 ml 1650 ml Output Total 900 ml 800 ml Balance 900 ml 250 ml 850 ml Results Result Diagram: 07/28/17 1019 07/28/17 1019 Results 24 hrs Laboratory Tests Test 07/27/17 15:36 07/27/17 16:56 07/27/17 20:39 07/28/17 04:46 Stool Occult Blood NEGATIVE Bedside Glucose 225 H 258 H 217 Test 07/28/17 08:13 07/28/17 10:19 Bedside Glucose 180 White Blood Count 7.9 Red Blood Count 2.85 L Hemoglobin 7.8 L Hematocrit 25.0 L Mean Corpuscular Volume 87.7 Mean Corpuscular Hemoglobin 27.4 L Mean Corpuscular Hemoglobin Concent 31.2 L Red Cell Distribution Width 16.5 H Platelet Count 337 Mean Platelet Volume 8.7 Neutrophils % 82.4 H Lymphocytes % 9.5 L Monocytes % 6.1 Eosinophils % 1.3 Basophils % 0.1 Nucleated Red Blood Cells % 0.0 Neutrophils # 6.5 Lymphocytes # 0.8 Monocytes # 0.5 Eosinophils # 0.1 Basophils # 0.0 Nucleated Red Blood Cells # 0.0 Sodium Level 140 Potassium Level 4.4 Chloride Level 114 H Carbon Dioxide Level 20 L Anion Gap 10 Blood Urea Nitrogen 27 H Creatinine 1.81 H Glucose Level 209 Calcium Level 7.8 L Medications Medications Current Medications Sodium Chloride (NS) 1,000 ml @ 100 mls/hr Q10H IV Last administered on t 04:52; Admin Dose 100 MLS/HR; Start 07/24/17 at 02:00 Ondansetron HCl (Zofran Inj) 4 mg Q6H PRN IV NAUSEA AND/OR VOMITING; Start 07/24/17 at 05:30 Acetaminophen (Tylenol Tab) 650 mg Q6H PRN PO PAIN LEVEL 1-3 OR FEVER; Start 07/24/17 at 05:30 Morphine Sulfate (morphine) 2 mg Q4H PRN IV PAIN LEVEL 7-10; Start 07/24/17 at 05:30 Ranitidine HCl (Zantac) 150 mg HS PO Last administered on 07/27/17 20:38; Admin Dose 150 MG; Start 07/24/17 at 21:00 Tamsulosin HCl (Flomax) 0.4 mg DAILY@21 PO Last administered on 07/27/17 20:38 ; Admin Dose 0.4 MG; Start 07/24/17 at 21:00 Diagnostic Test (Pha) (Accu-Chek) 1 ea 02 XX ; Start 07/25/17 at 02:00 Insulin Glargine (Lantus) 15 unit DAILY@08 SC Last administered on 07/28/17 08:21; Admin Dose 15 UNIT; Start 07/24/17 at 08:00 Polyethylene Glycol 17 gm 17 gm BID PRN PO constipation; Start 07/24/17 at 12: 00 Cefepime HCl (Maxipime 1gm/50 ml (Pmx)) 50 ml @ 100 mls/hr Q24H IVPB Last administered on 07/28/17 08:14; Admin Dose 100 MLS/HR; Start 07/25/17 at 09:00 Guaifenesin 200 mg 200 mg Q4H PRN PO cough Last administered on 07/26/17 11:32 ; Admin Dose 200 MG; Start 07/24/17 at 13:30 Piperacillin Sod/ Tazobactam Sod (Zosyn 2.25gm/ 50ml (Pmx)) 50 ml @ 100 mls/hr Q8 IVPB Last administered on 07/28/17 04:52; Admin Dose 100 MLS/HR; Start at 14:00 Miscellaneous Information 1 ea NOTE XX ; Start 07/26/17 at 17:00 Glucose (Glutose) 15 gm Q15M PRN PO DECREASED GLUCOSE; Start 07/26/17 at 17:00 Glucose (Glutose) 22.5 gm Q15M PRN PO DECREASED GLUCOSE; Start 07/26/17 at 17: 00 Dextrose (D50w Syringe) 25 ml Q15M PRN IV DECREASED GLUCOSE; Start 07/26/17 at 17:00 Dextrose (D50w Syringe) 50 ml Q15M PRN IV DECREASED GLUCOSE; Start 07/26/17 at 17:00 Glucagon (Glucagen) 1 mg Q15M PRN IM DECREASED GLUCOSE; Start 07/26/17 at 17:00 Glucose (Glutose) 15 gm Q15M PRN BUCCAL DECREASED GLUCOSE; Start 07/26/17 at 17 :00 JESSE TINOCO Jul 28, 2017 11:57
--- NOTE | 2017-07-28 12:41 | PN ---
Date/Time of Note Date/Time of Note DATE: 07/28/17 TIME: 12:25 Assessment/Plan VTE Prophylaxis VTE Prophylaxis Intervention: SCD's Lines/Catheters IV Catheter Type (from Nrs): Saline Lock Urinary Cath still in place: Yes Reason Cath still needed: other (indicate) (monitor out-put) Assessment/Plan Chief Complaint/Hosp Course Summary Assessment and Plan: Assessment: Anemia Chronic disease vs acute LIDA S/p fall with head abrasion UTI- on antibiotics DM Presumed TANNER History of BPH Plan: Pt will need EGD/colonoscopy- social sciences professor involved May need to go to bioethics Continue to monitor H/H Patient seen in collaboration with Dr. Dave Subjective: Course reviewed with nursing staff Patient interviewed and examined All labs, imaging and other results reviewed Patient resting in bed awake and alert able to answer all questions and understands plan of care. At this time patient is oriented. However, patient may be forgetful. Hgb 7.8 will continue to monitor. PHYSICAL EXAMINATION: GENERAL: Well developed, alert & oriented to name, place, event, forgetful to date- once reoriented patient remember- reassessed 10 min later patient remains oriented to date SKIN: No lesions, no stigmata chronic liver disease, no evidence of bleeding diathesis LYMPHATIC: No palpable lymphadenopathy. HEAD: Normocephalic, atraumatic, no tenderness. EYES: Pupils equal reactive to light and accommodation, full extraocular movements, sclera clear, non-icteric, no discharge. EARS/NOSE AND THROAT: Ears normal, nose normal, oropharynx normal, oral membranes well hydrated without lesions. NECK: Supple, no masses, CHEST: Inspection within normal limits. CARDIOVASCULAR: Heart: Regular rate and rhythm, no murmurs, gallops or rubs. GASTROINTESTINAL AND LIVER: Abdomen: Soft, non tenderness, non-distended, no hernias, no masses, no organomegaly, no ascites, no guarding, no rebound tenderness, normoactive bowel sounds. Rectal: Deferred. GENITOURINARY: Male genitalia within normal limits. EXTREMITIES: No cyanosis, clubbing or edema. Problems: Exam/Review of Systems Vital Signs Vitals Vital Signs Date Time Temp Pulse Resp B/P Pulse Ox O2 Delivery O2 Flow Rate FiO2 07/28/17 12:17 98.0 89 18 92/55 97 07/28/17 08:00 Nasal Cannula 2.0 Intake and Output 07/27/17 07/27/17 07/28/17 14:59 22:59 06:59 Intake Total 900 ml 1150 ml 1650 ml Output Total 900 ml 800 ml Balance 900 ml 250 ml 850 ml Results Result Diagram: 07/28/17 1019 07/28/17 1019 Results 24 hrs Laboratory Tests Test 07/27/17 15:36 07/27/17 16:56 07/27/17 20:39 07/28/17 04:46 Stool Occult Blood NEGATIVE Bedside Glucose 225 H 258 H 217 Test 07/28/17 08:13 07/28/17 10:19 07/28/17 11:53 Bedside Glucose 180 209 White Blood Count 7.9 Red Blood Count 2.85 L Hemoglobin 7.8 L Hematocrit 25.0 L Mean Corpuscular Volume 87.7 Mean Corpuscular Hemoglobin 27.4 L Mean Corpuscular Hemoglobin Concent 31.2 L Red Cell Distribution Width 16.5 H Platelet Count 337 Mean Platelet Volume 8.7 Neutrophils % 82.4 H Lymphocytes % 9.5 L Monocytes % 6.1 Eosinophils % 1.3 Basophils % 0.1 Nucleated Red Blood Cells % 0.0 Neutrophils # 6.5 Lymphocytes # 0.8 Monocytes # 0.5 Eosinophils # 0.1 Basophils # 0.0 Nucleated Red Blood Cells # 0.0 Sodium Level 140 Potassium Level 4.4 Chloride Level 114 H Carbon Dioxide Level 20 L Anion Gap 10 Blood Urea Nitrogen 27 H Creatinine 1.81 H Glucose Level 209 Calcium Level 7.8 L Medications Medications Current Medications Sodium Chloride (NS) 1,000 ml @ 100 mls/hr Q10H IV Last administered on 04:52; Admin Dose 100 MLS/HR; Start 07/24/17 at 02:00 Ondansetron HCl (Zofran Inj) 4 mg Q6H PRN IV NAUSEA AND/OR VOMITING; Start 07/24/17 at 05:30 Acetaminophen (Tylenol Tab) 650 mg Q6H PRN PO PAIN LEVEL 1-3 OR FEVER; Start 07/24/17 at 05:30 Morphine Sulfate (morphine) 2 mg Q4H PRN IV PAIN LEVEL 7-10; Start 07/24/17 at 05:30 Ranitidine HCl (Zantac) 150 mg HS PO Last administered on 07/27/17 20:38; Admin Dose 150 MG; Start 07/24/17 at 21:00 Tamsulosin HCl (Flomax) 0.4 mg DAILY@21 PO Last administered on 07/27/17 20:38 ; Admin Dose 0.4 MG; Start 07/24/17 at 21:00 Diagnostic Test (Pha) (Accu-Chek) 1 ea 02 XX ; Start 07/25/17 at 02:00 Insulin Glargine (Lantus) 15 unit DAILY@08 SC Last administered on 07/28/17 08:21; Admin Dose 15 UNIT; Start 07/24/17 at 08:00 Polyethylene Glycol (Miralax) 17 gm BID PRN PO constipation; Start 07/24/17 at 12:00 Guaifenesin 200 mg 200 mg Q4H PRN PO cough Last administered on 07/26/17 11:32 ; Admin Dose 200 MG; Start 07/24/17 at 13:30 Piperacillin Sod/ Tazobactam Sod (Zosyn 2.25gm/ 50ml (Pmx)) 50 ml @ 100 mls/hr Q8 IVPB Last administered on 07/28/17 04:52; Admin Dose 100 MLS/HR; Start at 14:00 Miscellaneous Information 1 ea NOTE XX ; Start 07/26/17 at 17:00 Glucose (Glutose) 15 gm Q15M PRN PO DECREASED GLUCOSE; Start 07/26/17 at 17:00 Glucose (Glutose) 22.5 gm Q15M PRN PO DECREASED GLUCOSE; Start 07/26/17 at 17: 00 Dextrose (D50w Syringe) 25 ml Q15M PRN IV DECREASED GLUCOSE; Start 07/26/17 at 17:00 Dextrose (D50w Syringe) 50 ml Q15M PRN IV DECREASED GLUCOSE; Start 07/26/17 at 17:00 Glucagon (Glucagen) 1 mg Q15M PRN IM DECREASED GLUCOSE; Start 07/26/17 at 17:00 Glucose (Glutose) 15 gm Q15M PRN BUCCAL DECREASED GLUCOSE; Start 07/26/17 at 17 :00 ARUNA CAROLINA Jul 28, 2017 12:40
--- NOTE | 2017-07-28 14:18 | CONS ---
Date/Time of Note Date/Time of Note DATE: 07/28/17 TIME: 14:09 Assessment/Plan Assessment/Plan Chief Complaint/Hosp Course ID PROGRESS NOTE TOTAL ABX DAY # 5 CURRENT ABX=> *Zosyn 07/28/17 1019 07/28/17 1019 24H INTERVAL SUMMARY * Awake, alert, confused, responsive, calm, no fevers, VSS, WBC normal, renal fx improving * Without dyspnea on supplemental O2 via NC , FC draining clear yellow urine * 07/24/17 Urine Cx from FC: ENTEROCOCCUS ENT SPS M.I.C. RX --------- --- AMPICILLIN <=2 S CIPROFLOXACIN <=0.5 S LEVOFLOXACIN 1 S PENICILLIN-G 2 S VANCOMYCIN S EXAM GENERAL: Afebrile, VSS, calm, lethargic HEENT: Left forehead/scalp red skin hyperpigmentation NECK: Supple, trachea midline. CHEST: Equal chest rise bilaterally, without dyspnea on observation HEART: Pulse RRR ABDOMEN: Soft : NL w/FC draining clear yellow urine EXTREMITIES: Warm, moves extremities ID ASSESSMENT 82 yo M admit with: 1. Sepsis with symptomatic hypotension, off Levophed drip=> RESOLVED * 07/23/17 BCX (-) * WBC normalized 2. Polymicrobial urinary tract infection * 07/24/17 FC: URINE CULTURE Final ENTEROCOCCUS SPECIES >100,000 CFU/ml * 07/23/17 URINE CULTURE Final Organism 1 ESCHERICHIA COLI COLONY COUNT >100,000 CFU/ml Organism 2 ENTEROCOCCUS SPECIES COLONY COUNT >100,000 CFU/ml Organism 3 PROTEUS MIRABILIS COLONY COUNT >100,000 CFU/ml 3. Benign prostatic hypertrophy. 4. Malposition of Pagan catheter, urology on case, status post Pagan catheter adjusted. 5. Anemia. 6. Diabetes. 7. Acute possibly on chronic kidney disease. 8. Status post fall. (-)MRSA Nares INVASIVES: PIV, FC ABX ALLERGY: KNDA CURRENT ABX=>Zosyn #4 s/p Cefepime 02/20 - 02/22 ID RECOMMENDATIONS 1. Continue Zosyn over the weekend => Taper to Augmentin PO 500mg PO BID Saturday continue for 5 days 2. Anticipate DC on PO Augmentin when cleared by primary & on Augmentin 500mg PO BID until last day 08/03/17 * NOTE: Quinolones demonstrate "In Vitro" sensitivity to Enterococcus, they are NOT FDA approved ABX for Enterococcus = failure "In Vivo." . Problems: Consultation Date/Type/Reason Admit Date/Time Jul 23, 2017 at 20:11 Initial Consult Date 07/24/17 Type of Consultation: ID Referring Provider: ARNOLD HUTCHISON MD Exam/Review of Systems Vital Signs Vitals Vital Signs Date Time Temp Pulse Resp B/P Pulse Ox O2 Delivery O2 Flow Rate FiO2 07/28/17 12:28 79 07/28/17 12: 98.0 18 92/55 97 07/28/17 08:00 Nasal Cannula 2.0 Intake and Output 07/27/17 07/27/17 07/28/17 15:00 23:00 07:00 Intake Total 900 ml 1050 ml 1650 ml Output Total 900 ml 800 ml Balance 900 ml 150 ml 850 ml Results Result Diagram: 07/28/17 1019 07/28/17 1019 Results 24 hrs Laboratory Tests Test 07/27/17 15:36 07/27/17 16:56 07/27/17 20:39 07/28/17 04:46 Stool Occult Blood NEGATIVE Bedside Glucose 225 H 258 H 217 Test 07/28/17 08:13 07/28/17 10:19 07/28/17 11:53 Bedside Glucose 180 209 White Blood Count 7.9 Red Blood Count 2.85 L Hemoglobin 7.8 L Hematocrit 25.0 L Mean Corpuscular Volume 87.7 Mean Corpuscular Hemoglobin 27.4 L Mean Corpuscular Hemoglobin Concent 31.2 L Red Cell Distribution Width 16.5 H Platelet Count 337 Mean Platelet Volume 8.7 Neutrophils % 82.4 H Lymphocytes % 9.5 L Monocytes % 6.1 Eosinophils % 1.3 Basophils % 0.1 Nucleated Red Blood Cells % 0.0 Neutrophils # 6.5 Lymphocytes # 0.8 Monocytes # 0.5 Eosinophils # 0.1 Basophils # 0.0 Nucleated Red Blood Cells # 0.0 Sodium Level 140 Potassium Level 4.4 Chloride Level 114 H Carbon Dioxide Level 20 L Anion Gap 10 Blood Urea Nitrogen 27 H Creatinine 1.81 H Glucose Level 209 Calcium Level 7.8 L Medications Medications Current Medications Sodium Chloride (NS) 1,000 ml @ 100 mls/hr Q10H IV Last administered on t 04:52; Admin Dose 100 MLS/HR; Start 12/6/17 at 02:00 Ondansetron HCl (Zofran Inj) 4 mg Q6H PRN IV NAUSEA AND/OR VOMITING; Start 07/24/17 at 05:30 Acetaminophen (Tylenol Tab) 650 mg Q6H PRN PO PAIN LEVEL 1-3 OR FEVER; Start 07/24/17 at 05:30 Morphine Sulfate (morphine) 2 mg Q4H PRN IV PAIN LEVEL 7-10; Start 07/24/17 at 05:30 Ranitidine HCl (Zantac) 150 mg HS PO Last administered on 07/27/17 20:38; Admin Dose 150 MG; Start 07/24/17 at 21:00 Tamsulosin HCl (Flomax) 0.4 mg DAILY@21 PO Last administered on 07/27/17 20:38 ; Admin Dose 0.4 MG; Start 07/24/17 at 21:00 Diagnostic Test (Pha) (Accu-Chek) 1 ea 02 XX ; Start 07/25/17 at 02:00 Insulin Glargine (Lantus) 15 unit DAILY@08 SC Last administered on 07/28/17 08:21; Admin Dose 15 UNIT; Start 07/24/17 at 08:00 Polyethylene Glycol (Miralax) 17 gm BID PRN PO constipation; Start 07/24/17 at 12:00 Guaifenesin 200 mg 200 mg Q4H PRN PO cough Last administered on 07/26/17 11:32 ; Admin Dose 200 MG; Start 07/24/17 at 13:30 Piperacillin Sod/ Tazobactam Sod (Zosyn 2.25gm/ 50ml (Pmx)) 50 ml @ 100 mls/hr Q8 IVPB Last administered on 07/28/17 04:52; Admin Dose 100 MLS/HR; Start at 14:00 Miscellaneous Information 1 ea NOTE XX ; Start 07/26/17 at 17:00 Glucose (Glutose) 15 gm Q15M PRN PO DECREASED GLUCOSE; Start 07/26/17 at 17:00 Glucose (Glutose) 22.5 gm Q15M PRN PO DECREASED GLUCOSE; Start 07/26/17 at 17: 00 Dextrose (D50w Syringe) 25 ml Q15M PRN IV DECREASED GLUCOSE; Start 07/26/17 at 17:00 Dextrose (D50w Syringe) 50 ml Q15M PRN IV DECREASED GLUCOSE; Start 07/26/17 at 17:00 Glucagon (Glucagen) 1 mg Q15M PRN IM DECREASED GLUCOSE; Start 07/26/17 at 17:00 Glucose (Glutose) 15 gm Q15M PRN BUCCAL DECREASED GLUCOSE; Start 07/26/17 at 17 :00 ANNIE MILIAN NP Jul 28, 2017 14:18
--- NOTE | 2017-07-28 15:42 | CONS ---
Date/Time of Note Date/Time of Note DATE: 07/28/17 TIME: 15:38 Consult Date/Type/Reason Admit Date/Time Jul 23, 2017 at 20:11 Initial Consult Date 07/24/17 Type of Consultation: Urology Reason for Consultation Urinary retention and urinary tract infection Ordering Provider: ARNOLD HUTCHISON MD Subjective Patient is awake, denies having any pain. Objective Vital Signs Date Time Temp Pulse Resp B/P Pulse Ox O2 Delivery O2 Flow Rate FiO2 07/28/17 12:28 79 07/28/17 12: 98.0 18 92/55 97 07/28/17 08:00 Nasal Cannula 2.0 Intake and Output 07/27/17 07/27/17 07/28/17 15:00 23:00 07:00 Intake Total 900 ml 1050 ml 1650 ml Output Total 900 ml 800 ml Balance 900 ml 150 ml 850 ml Exam The Pagan catheter is draining still good amount of purulent urine and in between clear urine. Results/Medications Result Diagram: 07/28/17 1019 07/28/17 1019 Results 24 hrs Laboratory Tests Test 07/27/17 16:56 07/27/17 20:39 07/28/17 04:46 07/28/17 08:13 Bedside Glucose 225 H 258 H 217 180 Test 07/28/17 10:19 07/28/17 11:53 White Blood Count 7.9 Red Blood Count 2.85 L Hemoglobin 7.8 L Hematocrit 25.0 L Mean Corpuscular Volume 87.7 Mean Corpuscular Hemoglobin 27.4 L Mean Corpuscular Hemoglobin Concent 31.2 L Red Cell Distribution Width 16.5 H Platelet Count 337 Mean Platelet Volume 8.7 Neutrophils % 82.4 H Lymphocytes % 9.5 L Monocytes % 6.1 Eosinophils % 1.3 Basophils % 0.1 Nucleated Red Blood Cells % 0.0 Neutrophils # 6.5 Lymphocytes # 0.8 Monocytes # 0.5 Eosinophils # 0.1 Basophils # 0.0 Nucleated Red Blood Cells # 0.0 Sodium Level 140 Potassium Level 4.4 Chloride Level 114 H Carbon Dioxide Level 20 L Anion Gap 10 Blood Urea Nitrogen 27 H Creatinine 1.81 H Glucose Level 209 Calcium Level 7.8 L Bedside Glucose 209 Medications Current Medications Sodium Chloride (NS) 1,000 ml @ 100 mls/hr Q10H IV Last administered on 04:52; Admin Dose 100 MLS/HR; Start 07/24/17 at 02:00 Ondansetron HCl (Zofran Inj) 4 mg Q6H PRN IV NAUSEA AND/OR VOMITING; Start 07/24/17 at 05:30 Acetaminophen (Tylenol Tab) 650 mg Q6H PRN PO PAIN LEVEL 1-3 OR FEVER; Start 07/24/17 at 05:30 Morphine Sulfate (morphine) 2 mg Q4H PRN IV PAIN LEVEL 7-10; Start 07/24/17 at 05:30 Ranitidine HCl (Zantac) 150 mg HS PO Last administered on 07/27/17 20:38; Admin Dose 150 MG; Start 07/24/17 at 21:00 Tamsulosin HCl (Flomax) 0.4 mg DAILY@21 PO Last administered on 07/27/17 20:38 ; Admin Dose 0.4 MG; Start 07/24/17 at 21:00 Diagnostic Test (Pha) (Accu-Chek) 1 ea 02 XX ; Start 07/25/17 at 02:00 Insulin Glargine (Lantus) 15 unit DAILY@08 SC Last administered on 07/28/17 08:21; Admin Dose 15 UNIT; Start 07/24/17 at 08:00 Polyethylene Glycol (Miralax) 17 gm BID PRN PO constipation; Start 07/24/17 at 12:00 Guaifenesin 200 mg 200 mg Q4H PRN PO cough Last administered on 07/26/17 11:32 ; Admin Dose 200 MG; Start 07/24/17 at 13:30 Piperacillin Sod/ Tazobactam Sod (Zosyn 2.25gm/ 50ml (Pmx)) 50 ml @ 100 mls/hr Q8 IVPB Last administered on 07/28/17 14:25; Admin Dose 100 MLS/HR; Start at 14:00 Miscellaneous Information 1 ea NOTE XX ; Start 07/26/17 at 17:00 Glucose (Glutose) 15 gm Q15M PRN PO DECREASED GLUCOSE; Start 07/26/17 at 17:00 Glucose (Glutose) 22.5 gm Q15M PRN PO DECREASED GLUCOSE; Start 07/26/17 at 17: 00 Dextrose (D50w Syringe) 25 ml Q15M PRN IV DECREASED GLUCOSE; Start 07/26/17 at 17:00 Dextrose (D50w Syringe) 50 ml Q15M PRN IV DECREASED GLUCOSE; Start 07/26/17 at 17:00 Glucagon (Glucagen) 1 mg Q15M PRN IM DECREASED GLUCOSE; Start 07/26/17 at 17:00 Glucose (Glutose) 15 gm Q15M PRN BUCCAL DECREASED GLUCOSE; Start 07/26/17 at 17 :00 Assessment/Plan Chief Complaint/Hosp Course 82-year-old male fell at home and came into the emergency room.He was found to have anemia and elevated creatinine. Renal ultrasound was done and that showed debris within the bladder. Nursing staff inserted a Pagan catheter however the CT scan done after that showed bilateral hydronephrosis and urinary retention and the balloon of the Pagan catheter inside the prostatic urethra. Therefore the Pagan catheter was removed. The patient himself is not very clear about his urological history but he is known to have a history of BPH and the CT scan did show a large prostate and it measured about [address] scan. I therefore inserted a 16 [place] coud catheter and drained the bladder the initial urine came out clear then it became very cloudy and very purulent at the end. The culture did show enterococcus. We will keep the Pagan catheter and continue the antibiotic and monitor his renal function. The creatinine is improving very slowly. Also we will continue the tamsulosin. The PSA was 0.9 Problems: POPPY PACE MD Jul 28, 2017 15:42
[2017-07-28] MEDS ORDERED: SOD CHLORIDE 0.9% 1,000 ML IV SCH (16:30)
--- NOTE | 2017-07-28 19:14 | CONS ---
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 with mild B/L [place] 2) Renal Cyst with Chronic Kidney disease appearance on Renal US 3) Prostatomegaly 4) Urosepsis 5) B/l PNA 6) Lactic Acidosis 7) Severe Anemia 8) Hypotension 9) Pre Renal Azotemia, Dehydration 10) Hyponatremia- resolved Renal functon continues to improve Electrolytes Ok Cont with IVFS ON IV Abx Repeat chemistry in am Will cont to monitor UO Electrolytes and renal function Consultation Date/Type/Reason Admit Date/Time Jul 23, 2017 at 20:11 Initial Consult Date 07/24/17 Type of Consultation: renal Referring Provider: ARNOLD HUTCHISON MD 24 HR Interval Summary Constitutional: requiring O2 Exam/Review of Systems Vital Signs Vitals Vital Signs Date Time Temp Pulse Resp B/P Pulse Ox O2 Delivery O2 Flow Rate FiO2 07/28/17 19:11 81 07/28/17 15:51 96.4 18 99/56 98 07/28/17 08:00 Nasal Cannula 2.0 Intake and Output 07/27/17 07/27/17 07/28/17 15:00 23:00 07:00 Intake Total 900 ml 1050 ml 1650 ml Output Total 900 ml 800 ml Balance 900 ml 150 ml 850 ml Exam Constitutional: No distress ENMT: mucosa pink and moist Neck: No jvd Respiratory: No labored breathing Cardiovascular: regular rate and rhythm, No edema Gastrointestinal: non-tender, soft Neurological: No lethargic Skin: No diaphoresis Results Result Diagram: 07/28/17 1019 07/28/17 1019 Results 24 hrs Laboratory Tests Test 07/27/17 20:39 07/28/17 04:46 07/28/17 08:13 07/28/17 10:19 Bedside Glucose 258 H 217 180 White Blood Count 7.9 Red Blood Count 2.85 L Hemoglobin 7.8 L Hematocrit 25.0 L Mean Corpuscular Volume 87.7 Mean Corpuscular Hemoglobin 27.4 L Mean Corpuscular Hemoglobin Concent 31.2 L Red Cell Distribution Width 16.5 H Platelet Count 337 Mean Platelet Volume 8.7 Neutrophils % 82.4 H Lymphocytes % 9.5 L Monocytes % 6.1 Eosinophils % 1.3 Basophils % 0.1 Nucleated Red Blood Cells % 0.0 Neutrophils # 6.5 Lymphocytes # 0.8 Monocytes # 0.5 Eosinophils # 0.1 Basophils # 0.0 Nucleated Red Blood Cells # 0.0 Sodium Level 140 Potassium Level 4.4 Chloride Level 114 H Carbon Dioxide Level 20 L Anion Gap 10 Blood Urea Nitrogen 27 H Creatinine 1.81 H Glucose Level 209 Calcium Level 7.8 L Test 07/28/17 11:53 07/28/17 17:09 Bedside Glucose 209 191 Medications Medications Current Medications Ondansetron HCl (Zofran Inj) 4 mg Q6H PRN IV NAUSEA AND/OR VOMITING; Start 07/24/17 at 05:30 Acetaminophen (Tylenol Tab) 650 mg Q6H PRN PO PAIN LEVEL 1-3 OR FEVER; Start 07/24/17 at 05:30 Morphine Sulfate (morphine) 2 mg Q4H PRN IV PAIN LEVEL 7-10; Start 07/24/17 at 05:30 Ranitidine HCl (Zantac) 150 mg HS PO Last administered on 07/27/17 20:38; Admin Dose 150 MG; Start 07/24/17 at 21:00 Tamsulosin HCl (Flomax) 0.4 mg DAILY@21 PO Last administered on 07/27/17 20:38 ; Admin Dose 0.4 MG; Start 07/24/17 at 21:00 Diagnostic Test (Pha) (Accu-Chek) 1 ea 02 XX ; Start 07/25/17 at 02:00 Insulin Glargine (Lantus) 15 unit DAILY@08 SC Last administered on 07/28/17 08:21; Admin Dose 15 UNIT; Start 07/24/17 at 08:00 Polyethylene Glycol (Miralax) 17 gm BID PRN PO constipation; Start 07/24/17 at 12:00 Guaifenesin 200 mg 200 mg Q4H PRN PO cough Last administered on 07/26/17 11:32 ; Admin Dose 200 MG; Start 07/24/17 at 13:30 Piperacillin Sod/ Tazobactam Sod (Zosyn 2.25gm/ 50ml (Pmx)) 50 ml @ 100 mls/hr Q8 IVPB Last administered on 07/28/17 14:25; Admin Dose 100 MLS/HR; Start at 14:00 Miscellaneous Information 1 ea NOTE XX ; Start 07/26/17 at 17:00 Glucose (Glutose) 15 gm Q15M PRN PO DECREASED GLUCOSE; Start 07/26/17 at 17:00 Glucose (Glutose) 22.5 gm Q15M PRN PO DECREASED GLUCOSE; Start 07/26/17 at 17: 00 Dextrose (D50w Syringe) 25 ml Q15M PRN IV DECREASED GLUCOSE; Start 07/26/17 at 17:00 Dextrose (D50w Syringe) 50 ml Q15M PRN IV DECREASED GLUCOSE; Start 07/26/17 at 17:00 Glucagon (Glucagen) 1 mg Q15M PRN IM DECREASED GLUCOSE; Start 07/26/17 at 17:00 Glucose 15 gm 15 gm Q15M PRN BUCCAL DECREASED GLUCOSE; Start 07/26/17 at 17:00 Sodium Chloride (NS) 1,000 ml @ 50 mls/hr Q20H IV Last administered on t 16:29; Admin Dose 50 MLS/HR; Start 07/28/17 at 16:30 CHICHI CORBETT MD Jul 28, 2017 19:14
[2017-07-28] MEDS: RANITIDINE 150 MG TAB PO SCH (21:30)
[2017-07-28] MEDS: TAMSULOSIN (SR) 0.4 MG CAP PO SCH (21:30)
[2017-07-29] VITALS (9 sets, daily range): BP systolic 111–119; BP diastolic 60–63; PULSE 87–103; RESP 18
[2017-07-29] MEDS: ALBUTEROL/IPRATROPIUM (NEB) 3 ML AMP HHN PRN (01:59)
[2017-07-29] MEDS: ACCU-CHEK XX SCH (02:00)
[2017-07-29] MEDS: PIPER-TAZO 2.25 GM (PMX) 50 ML IVPB SCH (05:21)
[2017-07-29 06:46] LABS: BASOPHILS % 0.1 % (0.0-2.0); EOSINOPHILS # 0.1 10^3/ul (0.0-0.5); EOSINOPHILS % 1.1 % (0.0-7.0); HEMATOCRIT 25.4 % (42.0-52.0); HEMOGLOBIN 7.7 g/dl (14.0-18.0); LYMPHOCYTES % 13.6 % (15.0-51.0); MEAN CORPUSCULAR HEMOGLOBIN 27.4 pg (29.0-33.0); MEAN CORPUSCULAR HGB CONC 30.3 g/dl (32.0-37.0); MEAN CORPUSCULAR VOLUME 90.4 fl (82.0-101.0); MEAN PLATELET VOLUME 9.2 fl (7.4-10.4); MONOCYTE # 0.5 10^3/ul (0.3-0.9); MONOCYTES % 6.5 % (0.0-11.0); NEUTROPHIL # 5.7 10^3/ul (1.6-7.5); NEUTROPHILS % 78.1 % (39.0-77.0); PLATELET COUNT 327 10^3/UL (140-415); RED BLOOD COUNT 2.81 10^6/ul (4.70-6.10); RED CELL DISTRIBUTION WIDTH 16.6 % (11.5-14.5); WHITE BLOOD COUNT 7.3 10^3/ul (4.8-10.8)
[2017-07-29 07:29] LABS: CREATININE 1.71 mg/dl (0.61-1.24); POTASSIUM 4.5 mmol/L (3.5-5.1)
[2017-07-29] MEDS: INSULIN ASPART [NOVOLOG] 3 ML PEN SC SCH ×4 (08:30→21:03)
[2017-07-29] MEDS: INSULIN GLARGINE [LANtus] 3 ML PEN SC SCH (08:30)
--- NOTE | 2017-07-29 11:46 | PN ---
Date/Time of Note Date/Time of Note DATE: 07/29/17 TIME: 11:33 Assessment/Plan VTE Prophylaxis VTE Prophylaxis Intervention: SCD's Lines/Catheters IV Catheter Type (from Nrs): Saline Lock Urinary Cath still in place: Yes Reason Cath still needed: other (indicate) (monitor out=put) Assessment/Plan Chief Complaint/Hosp Course Summary Assessment and Plan: Assessment: Anemia Chronic disease vs acute LIDA S/p fall with head abrasion UTI- on antibiotics DM Presumed TANNER History of BPH Plan: Patient alert and oriented to name, place, event, and DATE HGB 7.8- EGD/colon would be in patients bes interest- previous egd/colon scheduled However pt confused to date- concerns of moving forward with procedures Recommend going to bioethics top prevent future delays in plan of care for the patient Continue to monitor H/H Patient seen in collaboration with Dr. Dave Subjective: Course reviewed with nursing staff Patient interviewed and examined All labs, imaging and other results reviewed Patient awake alert and oriented x4 able to make all needs known, continue to monitor H/H- Continue to recommend bioethics for egd/colon and consent for blood transfusion , even though patient alert, I am concerned similar situation will re-occur. PHYSICAL EXAMINATION: GENERAL: Well developed, alert & oriented to name, place, event, and date SKIN: No lesions, no stigmata chronic liver disease, no evidence of bleeding diathesis LYMPHATIC: No palpable lymphadenopathy. HEAD: Normocephalic, atraumatic, no tenderness. EYES: Pupils equal reactive to light and accommodation, full extraocular movements, sclera clear, non-icteric, no discharge. EARS/NOSE AND THROAT: Ears normal, nose normal, oropharynx normal, oral membranes well hydrated without lesions. NECK: Supple, no masses, CHEST: Inspection within normal limits. CARDIOVASCULAR: Heart: Regular rate and rhythm, no murmurs, gallops or rubs. GASTROINTESTINAL AND LIVER: Abdomen: Soft, non tenderness, non-distended, no hernias, no masses, no organomegaly, no ascites, no guarding, no rebound tenderness, normoactive bowel sounds. Rectal: Deferred. GENITOURINARY: Male genitalia within normal limits. EXTREMITIES: No cyanosis, clubbing or edema. Problems: Exam/Review of Systems Vital Signs Vitals Vital Signs Date Time Temp Pulse Resp B/P Pulse Ox O2 Delivery O2 Flow Rate FiO2 12/11/17 08:19 90 07/29/17 08:15 Nasal Cannula 2.0 07/29/17 07:53 98.5 18 119/60 97 Intake and Output 07/28/17 07/28/17 07/29/17 15:00 23:00 07:00 Intake Total 1000 ml 650 ml Output Total 600 ml 1000 ml Balance 400 ml -350 ml Results Result Diagram: 07/29/17 0558 07/29/17 0558 Results 24 hrs Laboratory Tests Test 07/28/17 11:53 07/28/17 17:09 07/28/17 21:28 07/29/17 05:18 Bedside Glucose 209 191 197 139 Test 07/29/17 05:58 07/29/17 08:22 White Blood Count 7.3 Red Blood Count 2.81 L Hemoglobin 7.7 L Hematocrit 25.4 L Mean Corpuscular Volume 90.4 Mean Corpuscular Hemoglobin 27.4 L Mean Corpuscular Hemoglobin Concent 30.3 L Red Cell Distribution Width 16.6 H Platelet Count 327 Mean Platelet Volume 9.2 Neutrophils % 78.1 H Lymphocytes % 13.6 L Monocytes % 6.5 Eosinophils % 1.1 Basophils % 0.1 Nucleated Red Blood Cells % 0.0 Neutrophils # 5.7 Lymphocytes # 1.0 Monocytes # 0.5 Eosinophils # 0.1 Basophils # 0.0 Nucleated Red Blood Cells # 0.0 Sodium Level 142 Potassium Level 4.5 Chloride Level 114 H Carbon Dioxide Level 22 Anion Gap 11 Blood Urea Nitrogen 23 H Creatinine 1.71 H Glucose Level 149 # Calcium Level 8.0 L Bedside Glucose 161 Medications Medications Current Medications Ondansetron HCl (Zofran Inj) 4 mg Q6H PRN IV NAUSEA AND/OR VOMITING; Start 07/24/17 at 05:30 Acetaminophen (Tylenol Tab) 650 mg Q6H PRN PO PAIN LEVEL 1-3 OR FEVER; Start 07/24/17 at 05:30 Morphine Sulfate (morphine) 2 mg Q4H PRN IV PAIN LEVEL 7-10; Start 07/24/17 at 05:30 Ranitidine HCl (Zantac) 150 mg HS PO Last administered on 07/28/17t 21:30; Admin Dose 150 MG; Start 07/24/17 at 21:00 Tamsulosin HCl (Flomax) 0.4 mg DAILY@21 PO Last administered on 07/28/17 21: 30; Admin Dose 0.4 MG; Start 07/24/17 at 21:00 Diagnostic Test (Pha) (Accu-Chek) 1 ea 02 XX ; Start 07/25/17 at 02:00 Insulin Glargine (Lantus) 15 unit DAILY@08 SC Last administered on 07/29/17 08:30; Admin Dose 15 UNIT; Start 07/24/17 at 08:00 Polyethylene Glycol (Miralax) 17 gm BID PRN PO constipation; Start 07/24/17 at 12:00 Guaifenesin (Robitussin Liquid Cup) 200 mg Q4H PRN PO cough Last administered on 07/26/17 11:32; Admin Dose 200 MG; Start 07/24/17 at 13:30 Miscellaneous Information 1 ea NOTE XX ; Start 07/26/17 at 17:00 Glucose (Glutose) 15 gm Q15M PRN PO DECREASED GLUCOSE; Start 07/26/17 at 17:00 Glucose (Glutose) 22.5 gm Q15M PRN PO DECREASED GLUCOSE; Start 07/26/17 at 17: 00 Dextrose (D50w Syringe) 25 ml Q15M PRN IV DECREASED GLUCOSE; Start 07/26/17 at 17:00 Dextrose (D50w Syringe) 50 ml Q15M PRN IV DECREASED GLUCOSE; Start 07/26/17 at 17:00 Glucagon (Glucagen) 1 mg Q15M PRN IM DECREASED GLUCOSE; Start 07/26/17 at 17:00 Glucose (Glutose) 15 gm Q15M PRN BUCCAL DECREASED GLUCOSE; Start 07/26/17 at 17 :00 Amoxicillin/ Clavulanate Potassium (Augmentin) 500 mg BID PO ; Start 07/29/17 at 11:30 ARUNA CAROLINA Jul 29, 2017 11:46
[2017-07-29] MEDS: AMOXICILLIN/CLAV 500 MG TAB PO SCH ×2 (12:37→20:54)
--- NOTE | 2017-07-29 13:23 | CONS ---
Date/Time of Note Date/Time of Note DATE: 07/29/17 TIME: 13:21 Assessment/Plan Assessment/Plan Chief Complaint/Hosp Course SUBJECTIVE: No acute events overnight. Sleeping, looks comfortable no fevers MICROBIOLOGY: Urine culture growing enterococcus species and E. coli. Blood cultures since admission negative. INDWELLINGS: The patient has Pagan catheter. ANTIMICROBIALS: Augmentin ALLERGIES: NONE. PHYSICAL EXAMINATION: GENERAL: This is a well-nourished, well-developed elderly white man who is in no distress. HEENT: Head atraumatic, normocephalic. Sclerae anicteric. Buccal mucosa pink. NECK: Supple. CHEST: Rise symmetrical. Breath sounds clear. HEART: S1, S2. ABDOMEN: Soft, bowel tones present. EXTREMITIES: Without cyanosis. Trace edema. ASSESSMENT: 1. S/p sepsis with symptomatic hypotension. 2. Polymicrobial urinary tract infection 3. Status post fall. 5. Anemia. 6. Benign prostatic hypertrophy. 7. Diabetes. 8. Acute possibly on chronic kidney disease. PLAN: Stable, continue present care, complete antibiotics, follow recommendations of specialists. Discussed with staff Problems: Consultation Date/Type/Reason Admit Date/Time Jul 23, 2017 at 20:11 Initial Consult Date 07/24/17 Type of Consultation: ID Referring Provider: ARNOLD HUTCHISON MD Exam/Review of Systems Vital Signs Vitals Vital Signs Date Time Temp Pulse Resp B/P Pulse Ox O2 Delivery O2 Flow Rate FiO2 07/29/17 12:17 93 07/29/17 11:46 98.6 18 113/60 99 07/29/17 08:15 Nasal Cannula 2.0 Intake and Output 07/28/17 07/28/17 07/29/17 15:00 23:00 07:00 Intake Total 1000 ml 650 ml Output Total 600 ml 1000 ml Balance 400 ml -350 ml Results Result Diagram: 07/29/17 0558 07/29/17 0558 Results 24 hrs Laboratory Tests Test 07/28/17 17:09 07/28/17 21:28 07/29/17 05:18 07/29/17 05:58 Bedside Glucose 191 197 139 White Blood Count 7.3 Red Blood Count 2.81 L Hemoglobin 7.7 L Hematocrit 25.4 L Mean Corpuscular Volume 90.4 Mean Corpuscular Hemoglobin 27.4 L Mean Corpuscular Hemoglobin Concent 30.3 L Red Cell Distribution Width 16.6 H Platelet Count 327 Mean Platelet Volume 9.2 Neutrophils % 78.1 H Lymphocytes % 13.6 L Monocytes % 6.5 Eosinophils % 1.1 Basophils % 0.1 Nucleated Red Blood Cells % 0.0 Neutrophils # 5.7 Lymphocytes # 1.0 Monocytes # 0.5 Eosinophils # 0.1 Basophils # 0.0 Nucleated Red Blood Cells # 0.0 Sodium Level 142 Potassium Level 4.5 Chloride Level 114 H Carbon Dioxide Level 22 Anion Gap 11 Blood Urea Nitrogen 23 H Creatinine 1.71 H Glucose Level 149 # Calcium Level 8.0 L Test 07/29/17 08:22 07/29/17 12:25 Bedside Glucose 161 203 Medications Medications Current Medications Ondansetron HCl (Zofran Inj) 4 mg Q6H PRN IV NAUSEA AND/OR VOMITING; Start 07/24/17 at 05:30 Acetaminophen (Tylenol Tab) 650 mg Q6H PRN PO PAIN LEVEL 1-3 OR FEVER; Start 07/24/17 at 05:30 Morphine Sulfate (morphine) 2 mg Q4H PRN IV PAIN LEVEL 7-10; Start 07/24/17 at 05:30 Ranitidine HCl (Zantac) 150 mg HS PO Last administered on 07/28/17 21:30; Admin Dose 150 MG; Start 07/24/17 at 21:00 Tamsulosin HCl (Flomax) 0.4 mg DAILY@21 PO Last administered on 07/28/17 21: 30; Admin Dose 0.4 MG; Start 07/24/17 at 21:00 Diagnostic Test (Pha) (Accu-Chek) 1 ea 02 XX ; Start 07/25/17 at 02:00 Insulin Glargine (Lantus) 15 unit DAILY@08 SC Last administered on 07/29/17 08:30; Admin Dose 15 UNIT; Start 07/24/17 at 08:00 Polyethylene Glycol (Miralax) 17 gm BID PRN PO constipation; Start 07/24/17 at 12:00 Guaifenesin (Robitussin Liquid Cup) 200 mg Q4H PRN PO cough Last administered on 07/26/17 11:32; Admin Dose 200 MG; Start 07/24/17 at 13:30 Miscellaneous Information 1 ea NOTE XX ; Start 07/26/17 at 17:00 Glucose (Glutose) 15 gm Q15M PRN PO DECREASED GLUCOSE; Start 07/26/17 at 17:00 Glucose (Glutose) 22.5 gm Q15M PRN PO DECREASED GLUCOSE; Start 07/26/17 at 17: 00 Dextrose (D50w Syringe) 25 ml Q15M PRN IV DECREASED GLUCOSE; Start 07/26/17 at 17:00 Dextrose (D50w Syringe) 50 ml Q15M PRN IV DECREASED GLUCOSE; Start 07/26/17 at 17:00 Glucagon (Glucagen) 1 mg Q15M PRN IM DECREASED GLUCOSE; Start 07/26/17 at 17:00 Glucose (Glutose) 15 gm Q15M PRN BUCCAL DECREASED GLUCOSE; Start 07/26/17 at 17 :00 Amoxicillin/ Clavulanate Potassium (Augmentin) 500 mg BID PO Last administered on 07/29/17t 12:37; Admin Dose 500 MG; Start 07/29/17 at 11:30 KORIN JOHNSON NP Jul 29, 2017 13:23
--- NOTE | 2017-07-29 17:04 | PN ---
Date/Time of Note Date/Time of Note DATE: 07/29/17 TIME: 17:03 Assessment/Plan VTE Prophylaxis VTE Prophylaxis Intervention: SCD's Lines/Catheters IV Catheter Type (from Nrsg): Saline Lock Urinary Cath still in place: Yes Reason Cath still needed: urinary retention Assessment/Plan Assessment/Plan 82 yo M with presumed hx dementia sent from facility ([facility]) following a fall. Hospital stay notable for sepsis 2/2 UTI, anemia concern for GI source and TANNER. #sepsis from UTI complicated by AUR: cont abx x 5 more days as per ID rec -cont blackman. pt to be dc'ed with blackman in place and can do TOV with 1-2 weeks after discharge #h/o BPH: cont flomax #TANNER: resolving #chronic systolic HF: bb/acei as tolerated, outpatient cardiology follow up #microcytic anemia: GI advising inpatient endoscopy. sw consult for help finding surrogate decision maker #DM2 with a1c 7.6: cont insulin discharge pending sw assistance finding decision maker to aid in endoscopy consents. Also not unreasonable to discuss outpatient endoscopy however would still need to talk to surrogate decision makers regardless Subjective 24 Hr Interval Summary Free Text/Dictation pt amenable to endoscopy and knows the year however thinks Monae is president Exam/Review of Systems Vital Signs Vitals Vital Signs Date Time Temp Pulse Resp B/P Pulse Ox O2 Delivery O2 Flow Rate FiO2 07/29/17 14:00 Nasal Cannula 2.0 07/29/17 13:34 97.4 94 18 119/63 97 Intake and Output 07/28/17 07/28/17 07/29/17 15:00 23:00 07:00 Intake Total 1000 ml 650 ml Output Total 600 ml 1000 ml Balance 400 ml -350 ml Exam nad, oriented to year but not president no mrg lungs clear abd soft no rashes Results Result Diagram: 07/29/17 0558 07/29/17 0558 Results 24 hrs Laboratory Tests Test 07/28/17 17:09 07/28/17 21:28 07/29/17 05:18 07/29/17 05:58 Bedside Glucose 191 197 139 White Blood Count 7.3 Red Blood Count 2.81 L Hemoglobin 7.7 L Hematocrit 25.4 L Mean Corpuscular Volume 90.4 Mean Corpuscular Hemoglobin 27.4 L Mean Corpuscular Hemoglobin Concent 30.3 L Red Cell Distribution Width 16.6 H Platelet Count 327 Mean Platelet Volume 9.2 Neutrophils % 78.1 H Lymphocytes % 13.6 L Monocytes % 6.5 Eosinophils % 1.1 Basophils % 0.1 Nucleated Red Blood Cells % 0.0 Neutrophils # 5.7 Lymphocytes # 1.0 Monocytes # 0.5 Eosinophils # 0.1 Basophils # 0.0 Nucleated Red Blood Cells # 0.0 Sodium Level 142 Potassium Level 4.5 Chloride Level 114 H Carbon Dioxide Level 22 Anion Gap 11 Blood Urea Nitrogen 23 H Creatinine 1.71 H Glucose Level 149 # Calcium Level 8.0 L Test 07/29/17 08:22 07/29/17 12:25 Bedside Glucose 161 203 Medications Medications Current Medications Ondansetron HCl (Zofran Inj) 4 mg Q6H PRN IV NAUSEA AND/OR VOMITING; Start 07/24/17 at 05:30 Acetaminophen (Tylenol Tab) 650 mg Q6H PRN PO PAIN LEVEL 1-3 OR FEVER; Start 07/24/17 at 05:30 Morphine Sulfate (morphine) 2 mg Q4H PRN IV PAIN LEVEL 7-10; Start 07/24/17 at 05:30 Ranitidine HCl (Zantac) 150 mg HS PO Last administered on 07/28/17 21:30; Admin Dose 150 MG; Start 07/24/17 at 21:00 Tamsulosin HCl (Flomax) 0.4 mg DAILY@21 PO Last administered on 07/28/17 21: 30; Admin Dose 0.4 MG; Start 07/24/17 at 21:00 Diagnostic Test (Pha) (Accu-Chek) 1 ea 02 XX ; Start 07/25/17 at 02:00 Insulin Glargine (Lantus) 15 unit DAILY@08 SC Last administered on 07/29/17 08:30; Admin Dose 15 UNIT; Start 07/24/17 at 08:00 Polyethylene Glycol (Miralax) 17 gm BID PRN PO constipation; Start 07/24/17 at 12:00 Guaifenesin (Robitussin Liquid Cup) 200 mg Q4H PRN PO cough Last administered on 07/26/17 11:32; Admin Dose 200 MG; Start 07/24/17 at 13:30 Miscellaneous Information 1 ea NOTE XX ; Start 07/26/17 at 17:00 Glucose (Glutose) 15 gm Q15M PRN PO DECREASED GLUCOSE; Start 07/26/17 at 17:00 Glucose (Glutose) 22.5 gm Q15M PRN PO DECREASED GLUCOSE; Start 07/26/17 at 17: 00 Dextrose (D50w Syringe) 25 ml Q15M PRN IV DECREASED GLUCOSE; Start 07/26/17 at 17:00 Dextrose (D50w Syringe) 50 ml Q15M PRN IV DECREASED GLUCOSE; Start 07/26/17 at 17:00 Glucagon (Glucagen) 1 mg Q15M PRN IM DECREASED GLUCOSE; Start 07/26/17 at 17:00 Glucose (Glutose) 15 gm Q15M PRN BUCCAL DECREASED GLUCOSE; Start 07/26/17 at 17 :00 Amoxicillin/ Clavulanate Potassium (Augmentin) 500 mg BID PO Last administered on 07/29/17 12:37; Admin Dose 500 MG; Start 07/29/17 at 11:30 MELISSA RAMOS MD Jul 29, 2017 17:04 12:00 Guaifenesin (Robitussin Liquid Cup) 200 mg Q4H PRN PO cough Last administered on 07/26/17 11:32; Admin Dose 200 MG; Start 07/24/17 at 13:30 Miscellaneous Information 1 ea NOTE XX ; Start 07/26/17 at 17:00 Glucose (Glutose) 15 gm Q15M PRN PO DECREASED GLUCOSE; Start 07/26/17 at 17:00 Glucose (Glutose) 22.5 gm Q15M PRN PO DECREASED GLUCOSE; Start 07/26/17 at 17: 00 Dextrose (D50w Syringe) 25 ml Q15M PRN IV DECREASED GLUCOSE; Start 07/26/17 at 17:00 Dextrose (D50w Syringe) 50 ml Q15M PRN IV DECREASED GLUCOSE; Start 07/26/17 at 17:00 Glucagon (Glucagen) 1 mg Q15M PRN IM DECREASED GLUCOSE; Start 07/26/17 at 17:00 Glucose (Glutose) 15 gm Q15M PRN BUCCAL DECREASED GLUCOSE; Start 07/26/17 at 17 :00 Amoxicillin/ Clavulanate Potassium (Augmentin) 500 mg BID PO Last administered on 07/29/17 12:37; Admin Dose 500 MG; Start 07/29/17 at 11:30 MELISSA RAMOS MD Jul 29, 2017 17:04
--- NOTE | 2017-07-29 17:27 | CONS ---
Date/Time of Note Date/Time of Note DATE: 07/29/17 TIME: 17:26 Assessment/Plan Assessment/Plan Additional Assessment/Plan 2 yo Male with 1) TANNER on CKD, Appears to have chronic outlet obstruction with mild B/L [place] 2) Renal Cyst with Chronic Kidney disease appearance on Renal US 3) Prostatomegaly 4) Urosepsis 5) B/l PNA 6) Lactic Acidosis 7) Severe Anemia 8) Hypotension 9) Pre Renal Azotemia, Dehydration 10) Hyponatremia- resolved Renal functon continues to improve Electrolytes Ok off IVFs ON IV Abx Repeat chemistry in am Will cont to monitor UO Electrolytes and renal function Consultation Date/Type/Reason Admit Date/Time Jul 23, 2017 at 20:11 Initial Consult Date 07/24/17 Type of Consultation: ID Referring Provider: ARNOLD HUTCHISON MD 24 HR Interval Summary Constitutional: requiring O2 Exam/Review of Systems Vital Signs Vitals Vital Signs Date Time Temp Pulse Resp B/P Pulse Ox O2 Delivery O2 Flow Rate FiO2 07/29/17 14:00 Nasal Cannula 2.0 07/29/17 13:34 97.4 94 18 119/63 97 Intake and Output 07/28/17 07/28/17 07/29/17 15:00 23:00 07:00 Intake Total 1000 ml 650 ml Output Total 600 ml 1000 ml Balance 400 ml -350 ml Exam Constitutional: No distress ENMT: mucosa pink and moist Respiratory: normal air movement, No diminished breath sounds, No labored breathing Cardiovascular: regular rate and rhythm, No edema Gastrointestinal: non-tender, soft Extremities: No edema Neurological: TREND INVESTIGATOR II-XII intact Skin: No diaphoresis Results Result Diagram: 07/29/17 0558 07/29/17 0558 Results 24 hrs Laboratory Tests Test 07/28/17 21:28 07/29/17 05:18 07/29/17 05:58 07/29/17 08:22 Bedside Glucose 197 139 161 White Blood Count 7.3 Red Blood Count 2.81 L Hemoglobin 7.7 L Hematocrit 25.4 L Mean Corpuscular Volume 90.4 Mean Corpuscular Hemoglobin 27.4 L Mean Corpuscular Hemoglobin Concent 30.3 L Red Cell Distribution Width 16.6 H Platelet Count 327 Mean Platelet Volume 9.2 Neutrophils % 78.1 H Lymphocytes % 13.6 L Monocytes % 6.5 Eosinophils % 1.1 Basophils % 0.1 Nucleated Red Blood Cells % 0.0 Neutrophils # 5.7 Lymphocytes # 1.0 Monocytes # 0.5 Eosinophils # 0.1 Basophils # 0.0 Nucleated Red Blood Cells # 0.0 Sodium Level 142 Potassium Level 4.5 Chloride Level 114 H Carbon Dioxide Level 22 Anion Gap 11 Blood Urea Nitrogen 23 H Creatinine 1.71 H Glucose Level 149 # Calcium Level 8.0 L Test 07/29/17 12:25 07/29/17 17:11 Bedside Glucose 203 198 Medications Medications Current Medications Ondansetron HCl (Zofran Inj) 4 mg Q6H PRN IV NAUSEA AND/OR VOMITING; Start 07/24/17 at 05:30 Acetaminophen (Tylenol Tab) 650 mg Q6H PRN PO PAIN LEVEL 1-3 OR FEVER; Start 07/24/17 at 05:30 Morphine Sulfate (morphine) 2 mg Q4H PRN IV PAIN LEVEL 7-10; Start 07/24/17 at 05:30 Ranitidine HCl (Zantac) 150 mg HS PO Last administered on 07/28/17 21:30; Admin Dose 150 MG; Start 07/24/17 at 21:00 Tamsulosin HCl (Flomax) 0.4 mg DAILY@21 PO Last administered on 07/28/17 21: 30; Admin Dose 0.4 MG; Start 07/24/17 at 21:00 Diagnostic Test (Pha) (Accu-Chek) 1 ea 02 XX ; Start 07/25/17 at 02:00 Insulin Glargine (Lantus) 15 unit DAILY@08 SC Last administered on 07/29/17 08:30; Admin Dose 15 UNIT; Start 07/24/17 at 08:00 Polyethylene Glycol (Miralax) 17 gm BID PRN PO constipation; Start 07/24/17 at 12:00 Guaifenesin (Robitussin Liquid Cup) 200 mg Q4H PRN PO cough Last administered on 07/26/17 11:32; Admin Dose 200 MG; Start 07/24/17 at 13:30 Miscellaneous Information 1 ea NOTE XX ; Start 07/26/17 at 17:00 Glucose (Glutose) 15 gm Q15M PRN PO DECREASED GLUCOSE; Start 07/26/17 at 17:00 Glucose (Glutose) 22.5 gm Q15M PRN PO DECREASED GLUCOSE; Start 07/26/17 at 17: 00 Dextrose (D50w Syringe) 25 ml Q15M PRN IV DECREASED GLUCOSE; Start 07/26/17 at 17:00 Dextrose (D50w Syringe) 50 ml Q15M PRN IV DECREASED GLUCOSE; Start 07/26/17 at 17:00 Glucagon (Glucagen) 1 mg Q15M PRN IM DECREASED GLUCOSE; Start 07/26/17 at 17:00 Glucose (Glutose) 15 gm Q15M PRN BUCCAL DECREASED GLUCOSE; Start 07/26/17 at 17 :00 Amoxicillin/ Clavulanate Potassium (Augmentin) 500 mg BID PO Last administered on 07/29/17t 12:37; Admin Dose 500 MG; Start 07/29/17 at 11:30; Stop at 11:29 CHICHI CORBETT MD Jul 29, 2017 17:27
--- NOTE | 2017-07-29 18:54 | CONS ---
Date/Time of Note Date/Time of Note DATE: 07/29/17 TIME: 18:51 Consult Date/Type/Reason Admit Date/Time Jul 23, 2017 at 20:11 Initial Consult Date 07/24/17 Type of Consultation: Urology Reason for Consultation Urinary retention and urinary tract infection Ordering Provider: ARNOLD HUTCHISON MD Subjective Patient is sleeping and appeared to be comfortable Objective Vital Signs Date Time Temp Pulse Resp B/P Pulse Ox O2 Delivery O2 Flow Rate FiO2 07/29/17 18:27 2.0 07/29/17 14:00 Nasal Cannula 07/29/17 13:34 97.4 94 18 119/63 97 Intake and Output 07/28/17 07/28/17 07/29/17 15:00 23:00 07:00 Intake Total 1000 ml 650 ml Output Total 600 ml 1000 ml Balance 400 ml -350 ml Exam The abdomen is soft, the Pagan catheter is draining clear urine with occasional purulent material in the drainage tubing Results/Medications Result Diagram: 07/29/17 0558 07/29/17 0558 Results 24 hrs Laboratory Tests Test 07/28/17 21:28 07/29/17 05:18 07/29/17 05:58 07/29/17 08:22 Bedside Glucose 197 139 161 White Blood Count 7.3 Red Blood Count 2.81 L Hemoglobin 7.7 L Hematocrit 25.4 L Mean Corpuscular Volume 90.4 Mean Corpuscular Hemoglobin 27.4 L Mean Corpuscular Hemoglobin Concent 30.3 L Red Cell Distribution Width 16.6 H Platelet Count 327 Mean Platelet Volume 9.2 Neutrophils % 78.1 H Lymphocytes % 13.6 L Monocytes % 6.5 Eosinophils % 1.1 Basophils % 0.1 Nucleated Red Blood Cells % 0.0 Neutrophils # 5.7 Lymphocytes # 1.0 Monocytes # 0.5 Eosinophils # 0.1 Basophils # 0.0 Nucleated Red Blood Cells # 0.0 Sodium Level 142 Potassium Level 4.5 Chloride Level 114 H Carbon Dioxide Level 22 Anion Gap 11 Blood Urea Nitrogen 23 H Creatinine 1.71 H Glucose Level 149 # Calcium Level 8.0 L Test 07/29/17 12:25 07/29/17 17:11 Bedside Glucose 203 198 Medications Current Medications Ondansetron HCl (Zofran Inj) 4 mg Q6H PRN IV NAUSEA AND/OR VOMITING; Start 07/24/17 at 05:30 Acetaminophen (Tylenol Tab) 650 mg Q6H PRN PO PAIN LEVEL 1-3 OR FEVER; Start 07/24/17 at 05:30 Morphine Sulfate (morphine) 2 mg Q4H PRN IV PAIN LEVEL 7-10; Start 07/24/17 at 05:30 Ranitidine HCl (Zantac) 150 mg HS PO Last administered on 07/28/17 21:30; Admin Dose 150 MG; Start 07/24/17 at 21:00 Tamsulosin HCl (Flomax) 0.4 mg DAILY@21 PO Last administered on 07/28/17 21: 30; Admin Dose 0.4 MG; Start 07/24/17 at 21:00 Diagnostic Test (Pha) (Accu-Chek) 1 ea 02 XX ; Start 07/25/17 at 02:00 Insulin Glargine (Lantus) 15 unit DAILY@08 SC Last administered on 07/29/17 08:30; Admin Dose 15 UNIT; Start 07/24/17 at 08:00 Polyethylene Glycol (Miralax) 17 gm BID PRN PO constipation; Start 07/24/17 at 12:00 Guaifenesin (Robitussin Liquid Cup) 200 mg Q4H PRN PO cough Last administered on 07/26/17 11:32; Admin Dose 200 MG; Start 07/24/17 at 13:30 Miscellaneous Information 1 ea NOTE XX ; Start 07/26/17 at 17:00 Glucose (Glutose) 15 gm Q15M PRN PO DECREASED GLUCOSE; Start 07/26/17 at 17:00 Glucose (Glutose) 22.5 gm Q15M PRN PO DECREASED GLUCOSE; Start 07/26/17 at 17: 00 Dextrose (D50w Syringe) 25 ml Q15M PRN IV DECREASED GLUCOSE; Start 07/26/17 at 17:00 Dextrose (D50w Syringe) 50 ml Q15M PRN IV DECREASED GLUCOSE; Start 07/26/17 at 17:00 Glucagon (Glucagen) 1 mg Q15M PRN IM DECREASED GLUCOSE; Start 07/26/17 at 17:00 Glucose (Glutose) 15 gm Q15M PRN BUCCAL DECREASED GLUCOSE; Start 07/26/17 at 17 :00 Amoxicillin/ Clavulanate Potassium (Augmentin) 500 mg BID PO Last administered on 12/11/17at 12:37; Admin Dose 500 MG; Start 07/29/17 at 11:30; Stop at 11:29 Assessment/Plan Chief Complaint/Hosp Course 82-year-old male fell at home and came into the emergency room.He was found to have anemia and elevated creatinine. Renal ultrasound was done and that showed debris within the bladder. Nursing staff inserted a Pagan catheter however the CT scan done after that showed bilateral hydronephrosis and urinary retention and the balloon of the Pagan catheter inside the prostatic urethra. Therefore the Pagan catheter was removed. The patient himself is not very clear about his urological history but he is known to have a history of BPH and the CT scan did show a large prostate and it measured about [address] scan. I therefore inserted a 16 [place] coud catheter and drained the bladder, the initial urine came out clear then it became very cloudy and very purulent at the end. The culture did show enterococcus. We will keep the Pagan catheter and continue the antibiotic and monitor his renal function. The creatinine is improving very slowly. Also we will continue the tamsulosin. The PSA was 0.9 Problems: POPPY PACE MD Jul 29, 2017 18:54
--- NOTE | 2017-07-29 19:18 | CONS ---
Date/Time of Note Date/Time of Note DATE: 07/29/17 TIME: 19:15 Assessment/Plan Assessment/Plan Chief Complaint/Hosp Course Assessment: Hypotension - secondary to sepsis, blood pressures have improved Sepsis from urinary tract infection - on antibiotics per infectious disease Acute kidney injury on probable chronic kidney disease - renal function slowly improving, appears to have been due to obstruction Cardiomyopathy, LVEF 20-25% - new diagnosis, unclear etiology, clinically compensated Diabetes mellitus Benign prostate hyperplasia History of stroke (based on head CT findings) Anemia - follow up gastroenterology Recommendations: -start carvedilol 3.125mg BID, up titrate as tolerated -defer starting ACEI/ARB due to renal failure -will start on aspirin once gastroenterology work up completed -may eventually need coronary evaluation, depending on goals of care (can be done as outpatient) Problems: Consultation Date/Type/Reason Admit Date/Time Jul 23, 2017 at 20:11 Initial Consult Date 07/24/17 Type of Consultation: Cardiology 24 HR Interval Summary Free Text/Dictation No acute events. Patient appears confused, continues to complain about missing personal belongings. Detailed Summary Additional Comments 14 point review of systems without changes. Exam/Review of Systems Vital Signs Vitals Vital Signs Date Time Temp Pulse Resp B/P Pulse Ox O2 Delivery O2 Flow Rate FiO2 07/29/17 18:27 2.0 07/29/17 14:00 Nasal Cannula 07/29/17 13:34 97.4 94 18 119/63 97 Intake and Output 07/28/17 07/28/17 07/29/17 15:00 23:00 07:00 Intake Total 1000 ml 650 ml Output Total 600 ml 1000 ml Balance 400 ml -350 ml Exam Constitutional: alert, well developed Psych: nl mood/affect, no complaints Head: atraumatic, normocephalic Eyes: nl conjunctiva, nl lids ENMT: nl external ears & nose, nl nasal mucosa & septum Neck: non-tender, supple Respiratory: clear to auscultation, normal air movement Cardiovascular: regular rate and rhythm Gastrointestinal: ascites, soft Musculoskeletal: nl extremities to inspection Extremities: No clubbing, No cyanosis, No edema Neurological: nl mental status, nl speech Results Result Diagram: 07/29/17 0558 07/29/17 0558 Results 24 hrs Laboratory Tests Test 07/28/17 21:28 07/29/17 05:18 07/29/17 05:58 07/29/17 08:22 Bedside Glucose 197 139 161 White Blood Count 7.3 Red Blood Count 2.81 L Hemoglobin 7.7 L Hematocrit 25.4 L Mean Corpuscular Volume 90.4 Mean Corpuscular Hemoglobin 27.4 L Mean Corpuscular Hemoglobin Concent 30.3 L Red Cell Distribution Width 16.6 H Platelet Count 327 Mean Platelet Volume 9.2 Neutrophils % 78.1 H Lymphocytes % 13.6 L Monocytes % 6.5 Eosinophils % 1.1 Basophils % 0.1 Nucleated Red Blood Cells % 0.0 Neutrophils # 5.7 Lymphocytes # 1.0 Monocytes # 0.5 Eosinophils # 0.1 Basophils # 0.0 Nucleated Red Blood Cells # 0.0 Sodium Level 142 Potassium Level 4.5 Chloride Level 114 H Carbon Dioxide Level 22 Anion Gap 11 Blood Urea Nitrogen 23 H Creatinine 1.71 H Glucose Level 149 # Calcium Level 8.0 L Test 07/29/17 12:25 07/29/17 17:11 Bedside Glucose 203 198 Medications Medications Current Medications Ondansetron HCl (Zofran Inj) 4 mg Q6H PRN IV NAUSEA AND/OR VOMITING; Start 07/24/17 at 05:30 Acetaminophen (Tylenol Tab) 650 mg Q6H PRN PO PAIN LEVEL 1-3 OR FEVER; Start 07/24/17 at 05:30 Morphine Sulfate (morphine) 2 mg Q4H PRN IV PAIN LEVEL 7-10; Start 07/24/17 at 05:30 Ranitidine HCl (Zantac) 150 mg HS PO Last administered on 07/28/17 21:30; Admin Dose 150 MG; Start 07/24/17 at 21:00 Tamsulosin HCl (Flomax) 0.4 mg DAILY@21 PO Last administered on 07/28/17 21: 30; Admin Dose 0.4 MG; Start 07/24/17 at 21:00 Diagnostic Test (Pha) (Accu-Chek) 1 ea 02 XX ; Start 07/25/17 at 02:00 Insulin Glargine (Lantus) 15 unit DAILY@08 SC Last administered on 07/29/17 08:30; Admin Dose 15 UNIT; Start 07/24/17 at 08:00 Polyethylene Glycol (Miralax) 17 gm BID PRN PO constipation; Start 07/24/17 at 12:00 Guaifenesin (Robitussin Liquid Cup) 200 mg Q4H PRN PO cough Last administered on 07/26/17 11:32; Admin Dose 200 MG; Start 07/24/17 at 13:30 Miscellaneous Information 1 ea NOTE XX ; Start 07/26/17 at 17:00 Glucose (Glutose) 15 gm Q15M PRN PO DECREASED GLUCOSE; Start 07/26/17 at 17:00 Glucose (Glutose) 22.5 gm Q15M PRN PO DECREASED GLUCOSE; Start 07/26/17 at 17: 00 Dextrose (D50w Syringe) 25 ml Q15M PRN IV DECREASED GLUCOSE; Start 07/26/17 at 17:00 Dextrose (D50w Syringe) 50 ml Q15M PRN IV DECREASED GLUCOSE; Start 07/26/17 at 17:00 Glucagon (Glucagen) 1 mg Q15M PRN IM DECREASED GLUCOSE; Start 07/26/17 at 17:00 Glucose (Glutose) 15 gm Q15M PRN BUCCAL DECREASED GLUCOSE; Start 07/26/17 at 17 :00 Amoxicillin/ Clavulanate Potassium (Augmentin) 500 mg BID PO Last administered on 07/29/17 12:37; Admin Dose 500 MG; Start 07/29/17 at 11:30; Stop at 11:29 ABE EDWARDS MD Jul 29, 2017 19:18
[2017-07-29] MEDS: TAMSULOSIN (SR) 0.4 MG CAP PO SCH (20:54)
[2017-07-29] MEDS: RANITIDINE 150 MG TAB PO SCH (20:54)
[2017-07-30] MEDS: ACCU-CHEK XX SCH (02:00)
[2017-07-30 02:05] VITALS: BP 120/61; RESP 18
[2017-07-30 07:29] VITALS: BP 118/68; RESP 18
[2017-07-30] MEDS: AMOXICILLIN/CLAV 500 MG TAB PO SCH ×2 (08:05→21:19)
[2017-07-30] MEDS: INSULIN GLARGINE [LANtus] 3 ML PEN SC SCH (08:14)
[2017-07-30] MEDS: INSULIN ASPART [NOVOLOG] 3 ML PEN SC SCH ×4 (08:15→21:00)
--- NOTE | 2017-07-30 11:28 | PN ---
Date/Time of Note Date/Time of Note DATE: 07/30/17 TIME: 11:21 Assessment/Plan VTE Prophylaxis VTE Prophylaxis Intervention: SCD's Lines/Catheters [facility] Saline Lock Urinary Cath still in place: Yes Reason Cath still needed: other (indicate) (monitor out-put) Assessment/Plan Chief Complaint/Hosp Course Summary Assessment and Plan: Assessment: Anemia Chronic disease vs acute LIDA S/p fall with head abrasion UTI- on antibiotics DM Presumed TANNER History of BPH Plan: Pt refused blood work and EGD/colon Patient seen in collaboration with Dr. Dave Subjective: Course reviewed with nursing staff Patient interviewed and examined All labs, imaging and other results reviewed Patient awake alert and oriented x4 able to make all needs known. States he no longer wants to have EGD or colonoscopy, he is also refusing further blood draws. Pt states he wants to go home. Pt stated " I am almost 83 years old and I do not want any further work-up. I had a colonoscopy 20 years ago and I don't want another one". flavor room worker also spoke with patient, and patient expressed same feelings. Recommend pt to follow up with PCP and GI regarding anemia. PHYSICAL EXAMINATION: GENERAL: Well developed, alert & oriented to name, place, event, and date SKIN: No lesions, no stigmata chronic liver disease, no evidence of bleeding diathesis LYMPHATIC: No palpable lymphadenopathy. HEAD: Normocephalic, atraumatic, no tenderness. EYES: Pupils equal reactive to light and accommodation, full extraocular movements, sclera clear, non-icteric, no discharge. EARS/NOSE AND THROAT: Ears normal, nose normal, oropharynx normal, oral membranes well hydrated without lesions. NECK: Supple, no masses, CHEST: Inspection within normal limits. CARDIOVASCULAR: Heart: Regular rate and rhythm, no murmurs, gallops or rubs. GASTROINTESTINAL AND LIVER: Abdomen: Soft, non tenderness, non-distended, no hernias, no masses, no organomegaly, no ascites, no guarding, no rebound tenderness, normoactive bowel sounds. Rectal: Deferred. GENITOURINARY: Male genitalia within normal limits. EXTREMITIES: No cyanosis, clubbing or edema. Problems: Exam/Review of Systems Vital Signs Vitals Vital Signs Date Time Temp Pulse Resp B/P Pulse Ox O2 Delivery O2 Flow Rate FiO2 07/30/17 07:29 98.7 100 18 118/68 89 07/30/17 02:00 Nasal Cannula 2.0 Intake and Output 07/29/17 07/29/17 07/30/17 14:59 22:59 06:59 Intake Total 360 ml 240 ml Output Total 1000 ml 1000 ml Balance -640 ml -760 ml Results Result Diagram: 07/29/17 0558 07/29/17 0558 Results 24 hrs Laboratory Tests Test 07/29/17 12:25 07/29/17 17:11 07/29/17 20:54 07/30/17 02:24 Bedside Glucose 203 198 187 137 Test 07/30/17 08:07 Bedside Glucose 140 Medications Medications Current Medications Ondansetron HCl (Zofran Inj) 4 mg Q6H PRN IV NAUSEA AND/OR VOMITING; Start 07/24/17 at 05:30 Acetaminophen (Tylenol Tab) 650 mg Q6H PRN PO PAIN LEVEL 1-3 OR FEVER; Start 07/24/17 at 05:30 Morphine Sulfate (morphine) 2 mg Q4H PRN IV PAIN LEVEL 7-10; Start 07/24/17 at 05:30 Ranitidine HCl (Zantac) 150 mg HS PO Last administered on 07/29/17 20:54; Admin Dose 150 MG; Start 07/24/17 at 21:00 Tamsulosin HCl (Flomax) 0.4 mg DAILY@21 PO Last administered on 07/29/17 20: 54; Admin Dose 0.4 MG; Start 07/24/17 at 21:00 Diagnostic Test (Pha) (Accu-Chek) 1 ea 02 XX ; Start 07/25/17 at 02:00 Insulin Glargine (Lantus) 15 unit DAILY@08 SC Last administered on 07/30/17 08:14; Admin Dose 15 UNIT; Start 07/24/17 at 08:00 Polyethylene Glycol (Miralax) 17 gm BID PRN PO constipation; Start 07/24/17 at 12:00 Guaifenesin (Robitussin Liquid Cup) 200 mg Q4H PRN PO cough Last administered on 07/26/17 11:32; Admin Dose 200 MG; Start 07/24/17 at 13:30 Miscellaneous Information 1 ea NOTE XX ; Start 07/26/17 at 17:00 Glucose (Glutose) 15 gm Q15M PRN PO DECREASED GLUCOSE; Start 07/26/17 at 17:00 Glucose (Glutose) 22.5 gm Q15M PRN PO DECREASED GLUCOSE; Start 07/26/17 at 17: 00 Dextrose (D50w Syringe) 25 ml Q15M PRN IV DECREASED GLUCOSE; Start 07/26/17 at 17:00 Dextrose (D50w Syringe) 50 ml Q15M PRN IV DECREASED GLUCOSE; Start 07/26/17 at 17:00 Glucagon (Glucagen) 1 mg Q15M PRN IM DECREASED GLUCOSE; Start 07/26/17 at 17:00 Glucose (Glutose) 15 gm Q15M PRN BUCCAL DECREASED GLUCOSE; Start 07/26/17 at 17 :00 Amoxicillin/ Clavulanate Potassium (Augmentin) 500 mg BID PO Last administered on 07/30/17t 08:05; Admin Dose 500 MG; Start 07/29/17 at 11:30; Stop at 11:29 ARUNA CAROLINA Jul 30, 2017 11:28
--- NOTE | 2017-07-30 11:45 | DS ---
Date/Time of Note Date/Time of Note DATE: 07/30/17 TIME: 11:43 Discharge Summary Admission/Discharge Info Admit Date/Time Jul 23, 2017 at 20:11 Discharge Date/Time Discharge Diagnosis sepsis from polymicrobial cystitis complicated by acute urinary retention, anemia of unclear etiology, acute kidney injury (resolved) Patient Condition: Stable Consults , renal, ID, cardiology Procedures 12.6 CT AP IMPRESSION: 1. QUINTANA CATHETER BALLOON NOTED WITHIN THE PENILE URETHRA. RECOMMEND READJUSTMENT. No Quintana catheter noted within the bladder. 2. Distended bladder. Prostatmegaly protruding into the base of the bladder. There is thickening of the wall the bladder, likely secondary to chronic bladder outlet obstruction. 3. Mild bilateral hydronephrosis, likely secondary to chronic bladder outlet obstruction. The left kidney is abnormal in appearance, with mild enlargement and lobulated appearance of the upper pole left kidney, containing hypodensities. Cannot exclude the possibility of underlying mass. Recommend follow-up CT or MRI with IV contrast, following a renal protocol. 4. No evidence of bowel obstruction. Stool and air noted large bowel suggestive of constipation. No definitive colonic mass noted at this time. If clinical suspicion remains recommend follow-up colonoscopy. 5. Diffuse atherosclerosis of the aorta. 6. Generalized anasarca. 7. Bilateral lower lobe consolidation and moderate to large pleural effusions. Cardiomegaly. 12.6 DAVION IMPRESSION: 1. Benign left renal cysts. 2. Nonobstructing left renal calculi. 3. Bilateral hyperechoic kidneys consistent with medical renal disease. 4. Large amount of debris or blood products in the bladder. 12.6 carotid dopplers IMPRESSION: No evidence of a hemodynamically significant carotid stenosis. 12.6 TTE Conclusions 1. The left ventricle is normal in size with severely reduced systolic function. There is global hypokinesis. 2. Estimated left ventricular ejection fraction of 20-25%. 3. Mild to moderate mitral regurgitation. 12.5 NCCT head IMPRESSION: 1. No acute intracranial hemorrhage or mass effect. 2. 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 3. Right temporal cortical encephalomalacia is probably a sequela of prior trauma and/or infarct. 4. Chronic bilateral basal ganglia , left thalamic, and bilateral cerebellar lacunar infarcts. 12.5 CXR IMPRESSION: 1. Atelectasis at the lung bases. 2. Cardiomegaly and atherosclerosis. 3. Small bilateral pleural effusions. 4. Otherwise unremarkable chest radiograph. 12.5 blood culture ng 2/2 12.5 urine culture Microbiology URINE CULTURE Final Organism 1 ESCHERICHIA COLI COLONY COUNT >100,000 CFU/ml Organism 2 ENTEROCOCCUS SPECIES COLONY COUNT >100,000 CFU/ml Organism 3 PROTEUS MIRABILIS COLONY COUNT >100,000 CFU/ml E COLI ENT SPS P. MIRAB M.I.C. RX M.I.C. RX M.I.C. 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 He said he felt dizzy and as a result he fell down heating his forehead against the concrete. He denied loss of consciousness. He also denied focal weakness, chest pain, shortness of breath. When he presented to the ER, he was hypotensive with the lowest blood pressure documented being 79/48. Labs shows hemoglobin of 8, bicarb 19, creatinine 3.7 and a BUN 71. Initial lactic acid was 2.9 with repeat being 1.6. He denied history of kidney disease. His urine was noted to be pretty much all pus. Urinalysis is consistent with UTI. CT of the head was negative for acute findings. Hospital Course 82 yo M with presumed hx dementia sent from facility ([facility]) following a fall. Hospital stay notable for sepsis 2/2 UTI, anemia concern for GI source and TANNER. TANNER resolved with conservative management (IV fluids). Regarding pt's sepsis, urine culture results as above. ID was consulted. Pt initially on IV antibiotics, transitioned to PO for a total of 11 days of antimicrobials. Regarding pt's AUR, quintana was placed. DW prior to discharge, quintana is to remain in place and pt will f/u with for voiding trial. Imaging here also with incidental finding of possible L kidney mass v hydro. to consider further imaging. Pt anemic to hgb 7s during his stay. FOBT negative. GI consulted for possible endoscopies but pt refused. Pt is to follow up in the outpatient setting regarding his anemia. Pt had TTE notable for severely depressed EF (20-25%). Unclear from patient or PCPs office if this is new or old. Pt seen by cardiology which advised bb/acei as BP allowed, however BP unable to tolerate at time of discharge. As pt refusing endoscopies, asa also deferred. I personally contacted PCP's office and made them aware of the above information. copy of dc summary also faxed to PCP. Pt also being discharged with HH and HHPT. I discussed all of the above and the importance of follow up with PCPs and specialists with the patient at length prior to discharge who voiced understanding. I also left 2 voicemails with his girlfriend regarding pt's follow up needs. PCP FOLLOW UPS f/u referral for possible renal mass and acute urinary retention f/u CHF, consider bb/acei/asa f/u with GI for anemia Home Meds Active Scripts Amoxicillin/Potassium Clav (Amox-Clav 500-125 mg Tablet) 500-125 mg Tab, 500 MG PO BID for 4 Days, #8 TAB Prov:MELISSA RAMOS MD 07/30/17 Reported Medications Canagliflozin (Invokana) 300 Mg Tablet, 300 MG PO DAILY, TAB 07/23/17 Sitagliptin Phos-Metformin Hcl (Janumet XR) 100-1,000 Mg Tbmp.24hr, 1 TAB PO WITH DINNER, #30 TAB 07/23/17 Tamsulosin Hcl* (Tamsulosin Hcl*) 0.4 Mg Cap.er.24h, 0.4 MG PO DAILY, CAP 07/23/17 Ranitidine Hcl* (Ranitidine Hcl*) 150 Mg Tablet, 150 MG PO HS, #30 TAB 07/23/17 Glyburide* (Glyburide*) 5 Mg Tablet, 5 MG PO WITH BREAKFAST, #30 TAB 07/23/17 Follow-up Plan If you feel unwell upon returning home, please call your regular doctor or 911 immediately. FOLLOW UP APPOINTMENTS You are scheduled to see your regular doctor, Dr Pritchard this Saturday (08/02) at 1030am [address] [facility] [address], [place] [address]. phone # [phone] Please schedule a follow appointment with the urologist within 1-2 weeks. Your quintana catheter will have to stay in until you see the urologist Dr Pace Office Address [address] [facility] [address] [facility] [address] [place] [address] Office You will also be on antibiotics for another 4 days for a bladder infection Please schedule a follow up appointment with the computer systems support specialist/stomach doctor within 2-4 weeks to follow up on your low blood counts Dr Dave Office Address [address] [facility] [address] [place] [address] Office Please schedule a follow up within 2-4 weeks with the paper control clerk/heart doctor to discuss your heart's poor pumping ability Dr Edwards Office Address [address] [facility] [address] [facility] [address] [place] [address] Office OF NOTE, your abdominal imaging showed a lot of swelling around your left kidney. The radiologist noted there might be a kidney mass. Please talk to the urologist/surgical kidney doctor about getting dedicated kidney imaging Primary Care Provider Dr Quinones: p [phone] fax [phone] Time spent on discharge: > 30 minutes Pending Labs Laboratory Tests Test 07/29/17 12:25 07/29/17 17:11 07/29/17 20:54 07/30/17 02:24 Bedside Glucose 203mg/dL (70-220) 198mg/dL (70-220) 187mg/dL (70-220) 137mg/dL (70-220) Test 07/30/17 08:07 Bedside Glucose 140mg/dL (70-220) Copies To: CC: POPPY PACE MD; ABE EDWARDS MD; JONAS DAVE MD, ELLEN MD Jul 30, 2017 11:45
--- NOTE | 2017-07-30 11:49 | PDOCDIS ---
Discharge Instructions CONDITION Patient Condition: Stable HOME CARE INSTRUCTIONS: Special Diet: CARDIAC MECHANICAL SOFT FOLLOW UP/APPOINTMENTS Follow-up Plan If you feel unwell upon returning home, please call your regular doctor or 911 immediately. FOLLOW UP APPOINTMENTS You are scheduled to see your regular doctor, Dr Pritchard this Saturday (08/02) at 1030am [address] [facility] [facility] [address], [place] [address]. phone # [phone] Please schedule a follow appointment with the urologist within 1-2 weeks. Your blackman catheter will have to stay in until you see the urologist Dr Castro Office Address [address] [facility] [address] [place] [address] Office You will also be on antibiotics for another 4 days for a bladder infection Please schedule a follow up appointment with the licensed appraiser/stomach doctor within 2-4 weeks to follow up on your low blood counts Dr Dave Office Address [address] [facility] [address] [place] [address] Office Please schedule a follow up within 2-4 weeks with the can intake worker/heart doctor to discuss your heart's poor pumping ability Dr Ellis Office Address [address] [facility] [facility] [address] [place] [address] [place] [address] Office MELISSA RAMOS MD Jul 30, 2017 11:49
--- NOTE | 2017-07-30 14:41 | CONS ---
Date/Time of Note Date/Time of Note DATE: 07/30/17 TIME: 14:41 Assessment/Plan Assessment/Plan Chief Complaint/Hosp Course SUBJECTIVE: No acute events overnight, looks comfortable no fevers MICROBIOLOGY: Urine culture growing enterococcus species and E. coli. Blood cultures since admission negative. INDWELLINGS: The patient has Pagan catheter. ANTIMICROBIALS: Augmentin ALLERGIES: NONE. PHYSICAL EXAMINATION: GENERAL: This is a well-nourished, well-developed elderly white man who is in no distress. HEENT: Head atraumatic, normocephalic. Sclerae anicteric. Buccal mucosa pink. NECK: Supple. CHEST: Rise symmetrical. Breath sounds clear. HEART: S1, S2. ABDOMEN: Soft, bowel tones present. EXTREMITIES: Without cyanosis. Trace edema. ASSESSMENT: 1. S/p sepsis with symptomatic hypotension. 2. Polymicrobial urinary tract infection 3. Status post fall. 5. Anemia. 6. Benign prostatic hypertrophy. 7. Diabetes. 8. Acute possibly on chronic kidney disease. PLAN: Remains stable, continue present care, complete antibiotics, follow recommendations of specialists. Discussed with staff Problems: Consultation Date/Type/Reason Admit Date/Time Jul 23, 2017 at 20:11 Initial Consult Date 07/24/17 Type of Consultation: ID Exam/Review of Systems Vital Signs Vitals Vital Signs Date Time Temp Pulse Resp B/P Pulse Ox O2 Delivery O2 Flow Rate FiO2 07/30/17 07:29 98.7 100 18 118/68 89 07/30/17 02:00 Nasal Cannula 2.0 Intake and Output 07/29/17 07/29/17 07/30/17 15:00 23:00 07:00 Intake Total 360 ml 240 ml Output Total 1000 ml 1000 ml Balance -640 ml -760 ml Results Result Diagram: 07/29/17 0558 07/29/17 0558 Results 24 hrs Laboratory Tests Test 07/29/17 17:11 07/29/17 20:54 07/30/17 02:24 07/30/17 08:07 Bedside Glucose 198 187 137 140 Medications Medications Current Medications Ondansetron HCl (Zofran Inj) 4 mg Q6H PRN IV NAUSEA AND/OR VOMITING; Start 07/24/17 at 05:30 Acetaminophen (Tylenol Tab) 650 mg Q6H PRN PO PAIN LEVEL 1-3 OR FEVER; Start 07/24/17 at 05:30 Morphine Sulfate (morphine) 2 mg Q4H PRN IV PAIN LEVEL 7-10; Start 07/24/17 at 05:30 Ranitidine HCl (Zantac) 150 mg HS PO Last administered on 07/29/17 20:54; Admin Dose 150 MG; Start 07/24/17 at 21:00 Tamsulosin HCl (Flomax) 0.4 mg DAILY@21 PO Last administered on 07/29/17 20: 54; Admin Dose 0.4 MG; Start 07/24/17 at 21:00 Diagnostic Test (Pha) (Accu-Chek) 1 ea 02 XX ; Start 07/25/17 at 02:00 Insulin Glargine (Lantus) 15 unit DAILY@08 SC Last administered on 07/30/17 08:14; Admin Dose 15 UNIT; Start 07/24/17 at 08:00 Polyethylene Glycol (Miralax) 17 gm BID PRN PO constipation; Start 07/24/17 at 12:00 Guaifenesin (Robitussin Liquid Cup) 200 mg Q4H PRN PO cough Last administered on 07/26/17 11:32; Admin Dose 200 MG; Start 07/24/17 at 13:30 Miscellaneous Information 1 ea NOTE XX ; Start 07/26/17 at 17:00 Glucose (Glutose) 15 gm Q15M PRN PO DECREASED GLUCOSE; Start 07/26/17 at 17:00 Glucose (Glutose) 22.5 gm Q15M PRN PO DECREASED GLUCOSE; Start 07/26/17 at 17: 00 Dextrose (D50w Syringe) 25 ml Q15M PRN IV DECREASED GLUCOSE; Start 07/26/17 at 17:00 Dextrose (D50w Syringe) 50 ml Q15M PRN IV DECREASED GLUCOSE; Start 07/26/17 at 17:00 Glucagon (Glucagen) 1 mg Q15M PRN IM DECREASED GLUCOSE; Start 07/26/17 at 17:00 Glucose (Glutose) 15 gm Q15M PRN BUCCAL DECREASED GLUCOSE; Start 07/26/17 at 17 :00 Amoxicillin/ Clavulanate Potassium (Augmentin) 500 mg BID PO Last administered on 07/30/17 08:05; Admin Dose 500 MG; Start 07/29/17 at 11:30; Stop at 11:29 ISMAIL-ZADE,NERA PACK WORKER Jul 30, 2017 14:41
[2017-07-30 14:47] VITALS: BP 118/68; RESP 20
[2017-07-30] MEDS ORDERED: AMOX1TAB9 PO (15:31)
--- NOTE | 2017-07-30 16:28 | CONS ---
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, unclear etiology, clinically compensated Diabetes mellitus Benign prostate hyperplasia History of stroke (based on head CT findings) Anemia - follow up gastroenterology Recommendations: -continue carvedilol 3.125mg BID, up titrate as tolerated -defer starting ACEI/ARB due to renal failure -will start on aspirin once gastroenterology work up completed -may eventually need coronary evaluation, depending on goals of care (can be done as outpatient) Problems: Consultation Date/Type/Reason Admit Date/Time Jul 23, 2017 at 20:11 Initial Consult Date 07/24/17 Type of Consultation: Cardiology 24 HR Interval Summary Free Text/Dictation No acute events. Detailed Summary Additional Comments 14 point review of systems without changes. Exam/Review of Systems Vital Signs Vitals Vital Signs Date Time Temp Pulse Resp B/P Pulse Ox O2 Delivery O2 Flow Rate FiO2 07/30/17 14:47 98.7 100 20 118/68 89 07/30/17 08:00 Nasal Cannula 2.0 Intake and Output 07/29/17 07/29/17 07/30/17 15:00 23:00 07:00 Intake Total 360 ml 240 ml Output Total 1000 ml 1000 ml Balance -640 ml -760 ml Exam Constitutional: alert, well developed Psych: nl mood/affect, no complaints Head: atraumatic, normocephalic Eyes: nl conjunctiva, nl lids ENMT: nl external ears & nose, nl nasal mucosa & septum Neck: non-tender, supple Respiratory: clear to auscultation, normal air movement Cardiovascular: regular rate and rhythm Gastrointestinal: ascites, soft Musculoskeletal: nl extremities to inspection Extremities: No clubbing, No cyanosis, No edema Neurological: nl mental status, nl speech Results Result Diagram: 07/29/17 0558 07/29/17 0558 Results 24 hrs Laboratory Tests Test 07/29/17 17:11 07/29/17 20:54 07/30/17 02:24 07/30/17 08:07 Bedside Glucose 198 187 137 140 Medications Medications Current Medications Ondansetron HCl (Zofran Inj) 4 mg Q6H PRN IV NAUSEA AND/OR VOMITING; Start 07/24/17 at 05:30 Acetaminophen (Tylenol Tab) 650 mg Q6H PRN PO PAIN LEVEL 1-3 OR FEVER; Start 07/24/17 at 05:30 Morphine Sulfate (morphine) 2 mg Q4H PRN IV PAIN LEVEL 7-10; Start 07/24/17 at 05:30 Ranitidine HCl (Zantac) 150 mg HS PO Last administered on 07/29/17 20:54; Admin Dose 150 MG; Start 07/24/17 at 21:00 Tamsulosin HCl (Flomax) 0.4 mg DAILY@21 PO Last administered on 07/29/17 20: 54; Admin Dose 0.4 MG; Start 07/24/17 at 21:00 Diagnostic Test (Pha) (Accu-Chek) 1 ea 02 XX ; Start 07/25/17 at 02:00 Insulin Glargine (Lantus) 15 unit DAILY@08 SC Last administered on 07/30/17 08:14; Admin Dose 15 UNIT; Start 07/24/17 at 08:00 Polyethylene Glycol (Miralax) 17 gm BID PRN PO constipation; Start 07/24/17 at 12:00 Guaifenesin (Robitussin Liquid Cup) 200 mg Q4H PRN PO cough Last administered on 07/26/17 11:32; Admin Dose 200 MG; Start 07/24/17 at 13:30 Miscellaneous Information 1 ea NOTE XX ; Start 07/26/17 at 17:00 Glucose (Glutose) 15 gm Q15M PRN PO DECREASED GLUCOSE; Start 07/26/17 at 17:00 Glucose (Glutose) 22.5 gm Q15M PRN PO DECREASED GLUCOSE; Start 07/26/17 at 17: 00 Dextrose (D50w Syringe) 25 ml Q15M PRN IV DECREASED GLUCOSE; Start 07/26/17 at 17:00 Dextrose (D50w Syringe) 50 ml Q15M PRN IV DECREASED GLUCOSE; Start 07/26/17 at 17:00 Glucagon (Glucagen) 1 mg Q15M PRN IM DECREASED GLUCOSE; Start 07/26/17 at 17:00 Glucose (Glutose) 15 gm Q15M PRN BUCCAL DECREASED GLUCOSE; Start 07/26/17 at 17 :00 Amoxicillin/ Clavulanate Potassium (Augmentin) 500 mg BID PO Last administered on 07/30/17t 08:05; Admin Dose 500 MG; Start 07/29/17 at 11:30; Stop at 11:29 ABE EDWARDS MD Jul 30, 2017 16:28
[2017-07-30 19:29] VITALS: BP 113/63; RESP 18
--- NOTE | 2017-07-30 20:35 | CONS ---
Date/Time of Note Date/Time of Note DATE: 07/30/17 TIME: 20:30 Consult Date/Type/Reason Admit Date/Time Jul 23, 2017 at 20:11 Initial Consult Date 07/24/17 Type of Consultation: Urology Reason for Consultation Urinary retention and urinary tract infection Ordering Provider: MELISSA RAMOS MD Subjective Patient is comfortable and denies having any pain. Objective Vital Signs Date Time Temp Pulse Resp B/P Pulse Ox O2 Delivery O2 Flow Rate FiO2 07/30/17 19:29 98.0 104 18 113/63 95 07/30/17 18:58 2.0 07/30/17 08:00 Nasal Cannula Intake and Output 07/29/17 07/29/17 07/30/17 15:00 23:00 07:00 Intake Total 360 ml 240 ml Output Total 1000 ml 1000 ml Balance -640 ml -760 ml Exam The abdomen is soft, the Pagan catheter is draining clear urine but it is still have purulent sediment in the tubing Results/Medications Result Diagram: 07/29/17 0558 07/29/17 0558 Results 24 hrs Laboratory Tests Test 07/29/17 20:54 07/30/17 02:24 07/30/17 08:07 07/30/17 17:15 Bedside Glucose 187 137 140 115 Medications Current Medications Ondansetron HCl (Zofran Inj) 4 mg Q6H PRN IV NAUSEA AND/OR VOMITING; Start 07/24/17 at 05:30 Acetaminophen (Tylenol Tab) 650 mg Q6H PRN PO PAIN LEVEL 1-3 OR FEVER; Start 07/24/17 at 05:30 Morphine Sulfate (morphine) 2 mg Q4H PRN IV PAIN LEVEL 7-10; Start 07/24/17 at 05:30 Ranitidine HCl (Zantac) 150 mg HS PO Last administered on 07/29/17 20:54; Admin Dose 150 MG; Start 07/24/17 at 21:00 Tamsulosin HCl (Flomax) 0.4 mg DAILY@21 PO Last administered on 07/29/17 20: 54; Admin Dose 0.4 MG; Start 07/24/17 at 21:00 Diagnostic Test (Pha) (Accu-Chek) 1 ea 02 XX ; Start 07/25/17 at 02:00 Insulin Glargine (Lantus) 15 unit DAILY@08 SC Last administered on 07/30/17 08:14; Admin Dose 15 UNIT; Start 07/24/17 at 08:00 Polyethylene Glycol (Miralax) 17 gm BID PRN PO constipation; Start 07/24/17 at 12:00 Guaifenesin (Robitussin Liquid Cup) 200 mg Q4H PRN PO cough Last administered on 07/26/17 11:32; Admin Dose 200 MG; Start 07/24/17 at 13:30 Miscellaneous Information 1 ea NOTE XX ; Start 07/26/17 at 17:00 Glucose (Glutose) 15 gm Q15M PRN PO DECREASED GLUCOSE; Start 07/26/17 at 17:00 Glucose (Glutose) 22.5 gm Q15M PRN PO DECREASED GLUCOSE; Start 07/26/17 at 17: 00 Dextrose (D50w Syringe) 25 ml Q15M PRN IV DECREASED GLUCOSE; Start 07/26/17 at 17:00 Dextrose (D50w Syringe) 50 ml Q15M PRN IV DECREASED GLUCOSE; Start 07/26/17 at 17:00 Glucagon (Glucagen) 1 mg Q15M PRN IM DECREASED GLUCOSE; Start 07/26/17 at 17:00 Glucose (Glutose) 15 gm Q15M PRN BUCCAL DECREASED GLUCOSE; Start 07/26/17 at 17 :00 Amoxicillin/ Clavulanate Potassium (Augmentin) 500 mg BID PO Last administered on 07/30/17 08:05; Admin Dose 500 MG; Start 07/29/17 at 11:30; Stop at 11:29 Assessment/Plan Chief Complaint/Hosp Course 82-year-old male fell at home and came into the emergency room.He was found to have anemia and elevated creatinine. Renal ultrasound was done and that showed debris within the bladder. Nursing staff inserted a Pagan catheter however the CT scan done after that showed bilateral hydronephrosis and urinary retention and the balloon of the Pagan catheter inside the prostatic urethra. Therefore the Pagan catheter was removed. The patient himself is not very clear about his urological history but he is known to have a history of BPH and the CT scan did show a large prostate and it measured about [address] scan. I therefore inserted a 16 Macedonian coud catheter and drained the bladder, the initial urine came out clear then it became very cloudy and very purulent at the end. The urine is clear but he still has purulent sediment that the tubing. the culture did show enterococcus. We will keep the Pagan catheter and continue the antibiotic and monitor his renal function. The creatinine is 1.71. Also we will continue the tamsulosin. The PSA was 0.9 If he is discharged he should go with the Pagan catheter and follow-up as an outpatient in the office. Problems: POPPY PACE MD Jul 30, 2017 20:35
--- NOTE | 2017-07-30 20:43 | CONS ---
Date/Time of Note Date/Time of Note DATE: 07/30/17 TIME: 20:42 Assessment/Plan Assessment/Plan Additional Assessment/Plan 2 yo Male with 1) TANNER on CKD, Appears to have chronic outlet obstruction with mild B/L [place] 2) Renal Cyst with Chronic Kidney disease appearance on Renal US 3) Prostatomegaly 4) Urosepsis 5) B/l PNA 6) Lactic Acidosis 7) Severe Anemia 8) Hypotension 9) Pre Renal Azotemia, Dehydration 10) Hyponatremia- resolved Cont current Rx and plan Electrolytes Ok off IVFs Repeat chemistry in am Will cont to monitor UO Electrolytes and renal function Consultation Date/Type/Reason Admit Date/Time Jul 23, 2017 at 20:11 Initial Consult Date 07/24/17 Type of Consultation: Renal Referring Provider: MELISSA RAMOS MD 24 HR Interval Summary Free Text/Dictation No new complaints Constitutional: requiring O2 Exam/Review of Systems Vital Signs Vitals Vital Signs Date Time Temp Pulse Resp B/P Pulse Ox O2 Delivery O2 Flow Rate FiO2 07/30/17 19:29 98.0 104 18 113/63 95 07/30/17 18:58 2.0 07/30/17 08:00 Nasal Cannula Intake and Output 07/29/17 07/29/17 07/30/17 15:00 23:00 07:00 Intake Total 360 ml 240 ml Output Total 1000 ml 1000 ml Balance -640 ml -760 ml Exam Constitutional: No distress ENMT: mucosa pink and moist Neck: No jvd Respiratory: clear to auscultation Cardiovascular: regular rate and rhythm, No edema Gastrointestinal: soft Neurological: nl mental status, nl speech, No lethargic Skin: No diaphoresis Results Result Diagram: 07/29/17 0558 07/29/17 0558 Results 24 hrs Laboratory Tests Test 07/29/17 20:54 07/30/17 02:24 07/30/17 08:07 07/30/17 17:15 Bedside Glucose 187 137 140 115 Medications Medications Current Medications Ondansetron HCl (Zofran Inj) 4 mg Q6H PRN IV NAUSEA AND/OR VOMITING; Start 07/24/17 at 05:30 Acetaminophen (Tylenol Tab) 650 mg Q6H PRN PO PAIN LEVEL 1-3 OR FEVER; Start 07/24/17 at 05:30 Morphine Sulfate (morphine) 2 mg Q4H PRN IV PAIN LEVEL 7-10; Start 07/24/17 at 05:30 Ranitidine HCl (Zantac) 150 mg HS PO Last administered on 07/29/17 20:54; Admin Dose 150 MG; Start 07/24/17 at 21:00 Tamsulosin HCl (Flomax) 0.4 mg DAILY@21 PO Last administered on 07/29/17 20: 54; Admin Dose 0.4 MG; Start 07/24/17 at 21:00 Diagnostic Test (Pha) (Accu-Chek) 1 ea 02 XX ; Start 07/25/17 at 02:00 Insulin Glargine (Lantus) 15 unit DAILY@08 SC Last administered on 07/30/17 08:14; Admin Dose 15 UNIT; Start 07/24/17 at 08:00 Polyethylene Glycol (Miralax) 17 gm BID PRN PO constipation; Start 07/24/17 at 12:00 Guaifenesin (Robitussin Liquid Cup) 200 mg Q4H PRN PO cough Last administered on 07/26/17 11:32; Admin Dose 200 MG; Start 07/24/17 at 13:30 Miscellaneous Information 1 ea NOTE XX ; Start 07/26/17 at 17:00 Glucose (Glutose) 15 gm Q15M PRN PO DECREASED GLUCOSE; Start 07/26/17 at 17:00 Glucose (Glutose) 22.5 gm Q15M PRN PO DECREASED GLUCOSE; Start 07/26/17 at 17: 00 Dextrose (D50w Syringe) 25 ml Q15M PRN IV DECREASED GLUCOSE; Start 07/26/17 at 17:00 Dextrose (D50w Syringe) 50 ml Q15M PRN IV DECREASED GLUCOSE; Start 07/26/17 at 17:00 Glucagon (Glucagen) 1 mg Q15M PRN IM DECREASED GLUCOSE; Start 07/26/17 at 17:00 Glucose (Glutose) 15 gm Q15M PRN BUCCAL DECREASED GLUCOSE; Start 07/26/17 at 17 :00 Amoxicillin/ Clavulanate Potassium (Augmentin) 500 mg BID PO Last administered on 07/30/17 08:05; Admin Dose 500 MG; Start 07/29/17 at 11:30; Stop at 11:29 CHICHI CORBETT MD Jul 30, 2017 20:43
[2017-07-30] MEDS: RANITIDINE 150 MG TAB PO SCH (21:19)
[2017-07-30] MEDS: TAMSULOSIN (SR) 0.4 MG CAP PO SCH (21:19)
[2017-07-31] MEDS: ACCU-CHEK XX SCH (02:00)
[2017-07-31 02:33] VITALS: BP 113/66; RESP 18
[2017-07-31 07:55] VITALS: BP 96/60; RESP 20
[2017-07-31] MEDS: AMOXICILLIN/CLAV 500 MG TAB PO SCH ×2 (08:11→20:46)
[2017-07-31] MEDS: INSULIN ASPART [NOVOLOG] 3 ML PEN SC SCH ×4 (08:15→20:49)
[2017-07-31] MEDS: INSULIN GLARGINE [LANtus] 3 ML PEN SC SCH (08:25)
--- NOTE | 2017-07-31 11:03 | PN ---
Date/Time of Note Date/Time of Note DATE: 07/31/17 TIME: 10:59 Assessment/Plan VTE Prophylaxis VTE Prophylaxis Intervention: SCD's Lines/Catheters [facility]from [facility] Saline Lock Urinary Cath still in place: Yes Reason Cath still needed: other (indicate) (monitor output) Assessment/Plan Chief Complaint/Hosp Course Summary Assessment and Plan: Assessment: Anemia Chronic disease vs acute LIDA S/p fall with head abrasion UTI- on antibiotics DM Presumed TANNER History of BPH Plan: Continues to refuse egd/colon and blood draw Patient seen in collaboration with Dr. Dave Subjective: Course reviewed with nursing staff Patient interviewed and examined All labs, imaging and other results reviewed Patient continues to refuse EGD/colon and blood draw. He failed P.T. and considered high risk for falls. He will possibly need to be transferred to SNF for safety reasons. With patient refusing further interventions from GI team, we will sign off, however, will be available if needed. PHYSICAL EXAMINATION: GENERAL: Pale, alert & oriented to name, place, event, and date SKIN: No lesions, no stigmata chronic liver disease, no evidence of bleeding diathesis LYMPHATIC: No palpable lymphadenopathy. HEAD: Normocephalic, atraumatic, no tenderness. EYES: Pupils equal reactive to light and accommodation, full extraocular movements, sclera clear, non-icteric, no discharge. EARS/NOSE AND THROAT: Ears normal, nose normal, oropharynx normal, oral membranes well hydrated without lesions. NECK: Supple, no masses, CHEST: Inspection within normal limits. CARDIOVASCULAR: Heart: Regular rate and rhythm, no murmurs, gallops or rubs. GASTROINTESTINAL AND LIVER: Abdomen: Soft, non tenderness, non-distended, no hernias, no masses, no organomegaly, no ascites, no guarding, no rebound tenderness, normoactive bowel sounds. Rectal: Deferred. GENITOURINARY: Male genitalia within normal limits. EXTREMITIES: No cyanosis, clubbing or edema. Problems: Exam/Review of Systems Vital Signs Vitals Vital Signs Date Time Temp Pulse Resp B/P Pulse Ox O2 Delivery O2 Flow Rate FiO2 07/31/17 07:55 Nasal Cannula 2.0 07/31/17 07:55 98.8 94 20 96/60 98 Intake and Output 07/30/17 07/30/17 07/31/17 14:59 22:59 06:59 Intake Total 460 ml 480 ml Output Total 900 ml 1000 ml Balance -440 ml -520 ml Results Result Diagram: 07/29/17 0558 07/29/1758 Results 24 hrs Laboratory Tests Test 07/30/17 17:15 07/30/17 21:18 07/31/17 08:12 Bedside Glucose 115 174 200 Medications Medications Current Medications Ondansetron HCl (Zofran Inj) 4 mg Q6H PRN IV NAUSEA AND/OR VOMITING; Start 07/24/17 at 05:30 Acetaminophen (Tylenol Tab) 650 mg Q6H PRN PO PAIN LEVEL 1-3 OR FEVER; Start 07/24/17 at 05:30 Morphine Sulfate (morphine) 2 mg Q4H PRN IV PAIN LEVEL 7-10; Start 07/24/17 at 05:30 Ranitidine HCl (Zantac) 150 mg HS PO Last administered on 07/30/17 21:19; Admin Dose 150 MG; Start 07/24/17 at 21:00 Tamsulosin HCl (Flomax) 0.4 mg DAILY@21 PO Last administered on 07/30/17 21: 19; Admin Dose 0.4 MG; Start 07/24/17 at 21:00 Diagnostic Test (Pha) (Accu-Chek) 1 ea 02 XX ; Start 07/25/17 at 02:00 Insulin Glargine (Lantus) 15 unit DAILY@08 SC Last administered on 07/31/17 08:25; Admin Dose 15 UNIT; Start 07/24/17 at 08:00 Polyethylene Glycol (Miralax) 17 gm BID PRN PO constipation; Start 07/24/17 at 12:00 Guaifenesin (Robitussin Liquid Cup) 200 mg Q4H PRN PO cough Last administered on 07/26/17 11:32; Admin Dose 200 MG; Start 07/24/17 at 13:30 Miscellaneous Information 1 ea NOTE XX ; Start 07/26/17 at 17:00 Glucose (Glutose) 15 gm Q15M PRN PO DECREASED GLUCOSE; Start 07/26/17 at 17:00 Glucose (Glutose) 22.5 gm Q15M PRN PO DECREASED GLUCOSE; Start 07/26/17 at 17: 00 Dextrose (D50w Syringe) 25 ml Q15M PRN IV DECREASED GLUCOSE; Start 07/26/17 at 17:00 Dextrose (D50w Syringe) 50 ml Q15M PRN IV DECREASED GLUCOSE; Start 07/26/17 at 17:00 Glucagon (Glucagen) 1 mg Q15M PRN IM DECREASED GLUCOSE; Start 07/26/17 at 17:00 Glucose (Glutose) 15 gm Q15M PRN BUCCAL DECREASED GLUCOSE; Start 07/26/17 at 17 :00 Amoxicillin/ Clavulanate Potassium (Augmentin) 500 mg BID PO Last administered on 07/31/17t 08:11; Admin Dose 500 MG; Start 07/29/17 at 11:30; Stop at 11:29 ARUNA CAROLINA Jul 31, 2017 11:03
[2017-07-31 13:00] VITALS: RESP 18
[2017-07-31 14:41] VITALS: BP 125/63; RESP 20
--- NOTE | 2017-07-31 17:20 | CONS ---
Date/Time of Note Date/Time of Note DATE: 07/31/17 TIME: 17:20 Assessment/Plan Assessment/Plan Additional Assessment/Plan 82 yo Male with 1) TANNER on CKD, Appears to have chronic outlet obstruction with mild B/L [place] 2) Renal Cyst with Chronic Kidney disease appearance on Renal US 3) Prostatomegaly 4) Urosepsis 5) B/l PNA 6) Lactic Acidosis 7) Severe Anemia 8) Hypotension 9) Pre Renal Azotemia, Dehydration 10) Hyponatremia- resolved Cont current Rx and plan Electrolytes Ok off IVFs Repeat chemistry in am Will cont to monitor UO Electrolytes and renal function Consultation Date/Type/Reason Admit Date/Time Jul 23, 2017 at 20:11 Initial Consult Date 07/24/17 Type of Consultation: Renal Referring Provider: MELISSA RAMOS MD Exam/Review of Systems Vital Signs Vitals Vital Signs Date Time Temp Pulse Resp B/P Pulse Ox O2 Delivery O2 Flow Rate FiO2 07/31/17 14:41 97.7 97 20 125/63 96 07/31/17 07:55 Nasal Cannula 2.0 Intake and Output 07/30/17 07/30/17 07/31/17 15:00 23:00 07:00 Intake Total 460 ml 480 ml Output Total 900 ml 1000 ml Balance -440 ml -520 ml Results Result Diagram: 07/29/17 0558 07/29/17 0558 Results 24 hrs Laboratory Tests Test 07/30/17 21:18 07/31/17 08:12 07/31/17 12:12 Bedside Glucose 174 200 164 Medications Medications Current Medications Ondansetron HCl (Zofran Inj) 4 mg Q6H PRN IV NAUSEA AND/OR VOMITING; Start 07/24/17 at 05:30 Acetaminophen (Tylenol Tab) 650 mg Q6H PRN PO PAIN LEVEL 1-3 OR FEVER; Start 07/24/17 at 05:30 Morphine Sulfate (morphine) 2 mg Q4H PRN IV PAIN LEVEL 7-10; Start 07/24/17 at 05:30 Ranitidine HCl (Zantac) 150 mg HS PO Last administered on 07/30/17 21:19; Admin Dose 150 MG; Start 07/24/17 at 21:00 Tamsulosin HCl (Flomax) 0.4 mg DAILY@21 PO Last administered on 07/30/17 21: 19; Admin Dose 0.4 MG; Start 07/24/17 at 21:00 Diagnostic Test (Pha) (Accu-Chek) 1 ea 02 XX ; Start 07/25/17 at 02:00 Insulin Glargine (Lantus) 15 unit DAILY@08 SC Last administered on 07/31/17 08:25; Admin Dose 15 UNIT; Start 07/24/17 at 08:00 Polyethylene Glycol (Miralax) 17 gm BID PRN PO constipation; Start 07/24/17 at 12:00 Guaifenesin (Robitussin Liquid Cup) 200 mg Q4H PRN PO cough Last administered on 07/26/17 11:32; Admin Dose 200 MG; Start 07/24/17 at 13:30 Miscellaneous Information 1 ea NOTE XX ; Start 07/26/17 at 17:00 Glucose (Glutose) 15 gm Q15M PRN PO DECREASED GLUCOSE; Start 07/26/17 at 17:00 Glucose (Glutose) 22.5 gm Q15M PRN PO DECREASED GLUCOSE; Start 07/26/17 at 17: 00 Dextrose (D50w Syringe) 25 ml Q15M PRN IV DECREASED GLUCOSE; Start 07/26/17 at 17:00 Dextrose (D50w Syringe) 50 ml Q15M PRN IV DECREASED GLUCOSE; Start 07/26/17 at 17:00 Glucagon (Glucagen) 1 mg Q15M PRN IM DECREASED GLUCOSE; Start 07/26/17 at 17:00 Glucose (Glutose) 15 gm Q15M PRN BUCCAL DECREASED GLUCOSE; Start 07/26/17 at 17 :00 Amoxicillin/ Clavulanate Potassium (Augmentin) 500 mg BID PO Last administered on 07/31/17 08:11; Admin Dose 500 MG; Start 07/29/17 at 11:30; Stop at 11:29 CHICHI CORBETT MD Jul 31, 2017 17:20
--- NOTE | 2017-07-31 17:55 | PN ---
Date/Time of Note Date/Time of Note DATE: 07/31/17 TIME: 17:54 Assessment/Plan VTE Prophylaxis VTE Prophylaxis Intervention: SCD's Lines/Catheters IV Catheter Type (from Nrsg): Saline Lock Urinary Cath still in place: Yes Reason Cath still needed: urinary retention Assessment/Plan Chief Complaint/Hosp Course 82 yo M with presumed hx dementia sent from facility ([facility]) following a fall. Hospital stay notable for sepsis 2/2 UTI, anemia concern for GI source and TANNER. #sepsis from UTI complicated by AUR: cont abx x 3 more days as per ID rec -cont blackman. pt to be dc'ed with blackman in place and can do TOV with 1-2 weeks after discharge #h/o BPH: cont flomax #TANNER: resolving #chronic systolic HF: bb/acei as tolerated, outpatient cardiology follow up #microcytic anemia: outpatient GI eval as pt refused inpatient endoscopy #DM2 with a1c 7.6: cont insulin Pt medically stable for transfer to ARU when bed is available Problems: Subjective 24 Hr Interval Summary Free Text/Dictation Amenable to SNF Exam/Review of Systems Vital Signs Vitals Vital Signs Date Time Temp Pulse Resp B/P Pulse Ox O2 Delivery O2 Flow Rate FiO2 07/31/17 14:41 97.7 97 20 125/63 96 07/31/17 07:55 Nasal Cannula 2.0 Intake and Output 07/30/17 07/30/17 07/31/17 15:00 23:00 07:00 Intake Total 460 ml 480 ml Output Total 900 ml 1000 ml Balance -440 ml -520 ml Exam nad no mrg lungs clear abd soft no rashes labs reviewed Results Result Diagram: 07/29/17 0558 07/29/17 0558 Results 24 hrs Laboratory Tests Test 07/30/17 21:18 07/31/17 08:12 07/31/17 12:12 07/31/17 17:25 Bedside Glucose 174 200 164 162 Medications Medications Current Medications Ondansetron HCl (Zofran Inj) 4 mg Q6H PRN IV NAUSEA AND/OR VOMITING; Start 07/24/17 at 05:30 Acetaminophen (Tylenol Tab) 650 mg Q6H PRN PO PAIN LEVEL 1-3 OR FEVER; Start 07/24/17 at 05:30 Morphine Sulfate (morphine) 2 mg Q4H PRN IV PAIN LEVEL 7-10; Start 07/24/17 at 05:30 Ranitidine HCl (Zantac) 150 mg HS PO Last administered on 07/30/17 21:19; Admin Dose 150 MG; Start 07/24/17 at 21:00 Tamsulosin HCl (Flomax) 0.4 mg DAILY@21 PO Last administered on 07/30/17 21: 19; Admin Dose 0.4 MG; Start 07/24/17 at 21:00 Diagnostic Test (Pha) (Accu-Chek) 1 ea 02 XX ; Start 07/25/17 at 02:00 Insulin Glargine (Lantus) 15 unit DAILY@08 SC Last administered on 07/31/17 08:25; Admin Dose 15 UNIT; Start 07/24/17 at 08:00 Polyethylene Glycol (Miralax) 17 gm BID PRN PO constipation; Start 07/24/17 at 12:00 Guaifenesin (Robitussin Liquid Cup) 200 mg Q4H PRN PO cough Last administered on 07/26/17 11:32; Admin Dose 200 MG; Start 07/24/17 at 13:30 Miscellaneous Information 1 ea NOTE XX ; Start 07/26/17 at 17:00 Glucose (Glutose) 15 gm Q15M PRN PO DECREASED GLUCOSE; Start 07/26/17 at 17:00 Glucose (Glutose) 22.5 gm Q15M PRN PO DECREASED GLUCOSE; Start 07/26/17 at 17: 00 Dextrose (D50w Syringe) 25 ml Q15M PRN IV DECREASED GLUCOSE; Start 07/26/17 at 17:00 Dextrose (D50w Syringe) 50 ml Q15M PRN IV DECREASED GLUCOSE; Start 07/26/17 at 17:00 Glucagon (Glucagen) 1 mg Q15M PRN IM DECREASED GLUCOSE; Start 07/26/17 at 17:00 Glucose (Glutose) 15 gm Q15M PRN BUCCAL DECREASED GLUCOSE; Start 07/26/17 at 17 :00 Amoxicillin/ Clavulanate Potassium (Augmentin) 500 mg BID PO Last administered on 07/31/17 08:11; Admin Dose 500 MG; Start 07/29/17 at 11:30; Stop at 11:29 MELISSA RAMOS MD Jul 31, 2017 17:55 MELISSA RAMOS MD Jul 31, 2017 17:55
--- NOTE | 2017-07-31 19:14 | CONS ---
Date/Time of Note Date/Time of Note DATE: 07/31/17 TIME: 19:13 Assessment/Plan Assessment/Plan Chief Complaint/Hosp Course SUBJECTIVE: No acute events overnight, awake, looks comfortable no fevers MICROBIOLOGY: Urine culture growing enterococcus species and E. coli. Blood cultures since admission negative. INDWELLINGS: The patient has Pagan catheter. ANTIMICROBIALS: Augmentin ALLERGIES: NONE. PHYSICAL EXAMINATION: GENERAL: This is a well-nourished, well-developed elderly white man who is in no distress. HEENT: Head atraumatic, normocephalic. Sclerae anicteric. Buccal mucosa pink. NECK: Supple. CHEST: Rise symmetrical. Breath sounds clear. HEART: S1, S2. ABDOMEN: Soft, bowel tones present. EXTREMITIES: Without cyanosis. Trace edema. ASSESSMENT: 1. S/p sepsis with symptomatic hypotension. 2. Polymicrobial urinary tract infection 3. Status post fall. 5. Anemia. 6. Benign prostatic hypertrophy. 7. Diabetes. 8. Acute possibly on chronic kidney disease. PLAN: Remains stable, continue present care, complete antibiotics for couple more days, pending placement. Discussed with staff Problems: Consultation Date/Type/Reason Admit Date/Time Jul 23, 2017 at 20:11 Initial Consult Date 07/24/17 Type of Consultation: id Referring Provider: MELISSA RAMOS MD Exam/Review of Systems Vital Signs Vitals Vital Signs Date Time Temp Pulse Resp B/P Pulse Ox O2 Delivery O2 Flow Rate FiO2 07/31/17 14:41 97.7 97 20 125/63 96 07/31/17 13:00 Room Air 07/31/17 13:00 2.0 Intake and Output 07/30/17 07/30/17 07/31/17 15:00 23:00 07:00 Intake Total 460 ml 480 ml Output Total 900 ml 1000 ml Balance -440 ml -520 ml Results Result Diagram: 07/29/17 0558 07/29/17 0558 Results 24 hrs Laboratory Tests Test 07/30/17 21:18 07/31/17 08:12 07/31/17 12:12 07/31/17 17:25 Bedside Glucose 174 200 164 162 Medications Medications Current Medications Ondansetron HCl (Zofran Inj) 4 mg Q6H PRN IV NAUSEA AND/OR VOMITING; Start 07/24/17 at 05:30 Acetaminophen (Tylenol Tab) 650 mg Q6H PRN PO PAIN LEVEL 1-3 OR FEVER; Start 07/24/17 at 05:30 Morphine Sulfate (morphine) 2 mg Q4H PRN IV PAIN LEVEL 7-10; Start 07/24/17 at 05:30 Ranitidine HCl (Zantac) 150 mg HS PO Last administered on 07/30/17 21:19; Admin Dose 150 MG; Start 07/24/17 at 21:00 Tamsulosin HCl (Flomax) 0.4 mg DAILY@21 PO Last administered on 07/30/17 21: 19; Admin Dose 0.4 MG; Start 07/24/17 at 21:00 Diagnostic Test (Pha) (Accu-Chek) 1 ea 02 XX ; Start 07/25/17 at 02:00 Insulin Glargine (Lantus) 15 unit DAILY@08 SC Last administered on 07/31/17 08:25; Admin Dose 15 UNIT; Start 07/24/17 at 08:00 Polyethylene Glycol (Miralax) 17 gm BID PRN PO constipation; Start 07/24/17 at 12:00 Guaifenesin (Robitussin Liquid Cup) 200 mg Q4H PRN PO cough Last administered on 07/26/17 11:32; Admin Dose 200 MG; Start 07/24/17 at 13:30 Miscellaneous Information 1 ea NOTE XX ; Start 07/26/17 at 17:00 Glucose (Glutose) 15 gm Q15M PRN PO DECREASED GLUCOSE; Start 07/26/17 at 17:00 Glucose (Glutose) 22.5 gm Q15M PRN PO DECREASED GLUCOSE; Start 07/26/17 at 17: 00 Dextrose (D50w Syringe) 25 ml Q15M PRN IV DECREASED GLUCOSE; Start 07/26/17 at 17:00 Dextrose (D50w Syringe) 50 ml Q15M PRN IV DECREASED GLUCOSE; Start 07/26/17 at 17:00 Glucagon (Glucagen) 1 mg Q15M PRN IM DECREASED GLUCOSE; Start 07/26/17 at 17:00 Glucose (Glutose) 15 gm Q15M PRN BUCCAL DECREASED GLUCOSE; Start 07/26/17 at 17 :00 Amoxicillin/ Clavulanate Potassium (Augmentin) 500 mg BID PO Last administered on 07/31/17 08:11; Admin Dose 500 MG; Start 07/29/17 at 11:30; Stop at 11:29 KORIN JOHNSON NP Jul 31, 2017 19:14
[2017-07-31 20:00] VITALS: BP 120/60; RESP 20
[2017-07-31] MEDS: TAMSULOSIN (SR) 0.4 MG CAP PO SCH (20:46)
[2017-07-31] MEDS: RANITIDINE 150 MG TAB PO SCH (20:46)
[2017-08-01 02:00] VITALS: BP 109/59; RESP 20
[2017-08-01] MEDS: ACCU-CHEK XX SCH (02:27)
[2017-08-01] MEDS: ALBUTEROL/IPRATROPIUM (NEB) 3 ML AMP HHN PRN (05:18)
[2017-08-01 06:51] LABS: CALCIUM 7.9 mg/dl (8.4-10.2); CREATININE 1.19 mg/dl (0.61-1.24)
[2017-08-01 07:31] VITALS: BP 114/59; RESP 14
[2017-08-01] MEDS: AMOXICILLIN/CLAV 500 MG TAB PO SCH (08:07)
[2017-08-01] MEDS: INSULIN GLARGINE [LANtus] 3 ML PEN SC SCH (08:14)
[2017-08-01] MEDS: INSULIN ASPART [NOVOLOG] 3 ML PEN SC SCH ×3 (08:14→17:30)
--- NOTE | 2017-08-01 14:37 | CONS ---
Date/Time of Note Date/Time of Note DATE: 08/01/17 TIME: 14:36 Assessment/Plan Assessment/Plan Additional Assessment/Plan 82 yo Male with 1) BRAD on CKD, Appears to have chronic outlet obstruction with mild B/L [place] 2) Renal Cyst with Chronic Kidney disease appearance on Renal US 3) Prostatomegaly 4) Urosepsis 5) B/l PNA 6) Lactic Acidosis 7) Severe Anemia 8) Hypotension 9) Pre Renal Azotemia, Dehydration 10) Hyponatremia- resolved Brad Resolved Electrolytes OK BP stable Renal will sign off Re consult as needed Consultation Date/Type/Reason Admit Date/Time Jul 23, 2017 at 20:11 Initial Consult Date 07/24/17 Type of Consultation: Renal Referring Provider: MELISSA RAMOS MD 24 HR Interval Summary Free Text/Dictation Good UO, NO new complaints Constitutional: requiring O2 Exam/Review of Systems Vital Signs Vitals Vital Signs Date Time Temp Pulse Resp B/P Pulse Ox O2 Delivery O2 Flow Rate FiO2 08/01/17 13:38 2.0 08/01/17 08:00 Nasal Cannula 08/01/17 07:31 97.6 95 14 114/59 98 Intake and Output 07/31/17 07/31/17 08/01/17 15:00 23:00 07:00 Intake Total 1200 ml Output Total 1325 ml Balance -125 ml Exam Constitutional: frail, No distress ENMT: mucosa pink and moist Neck: No jvd Respiratory: clear to auscultation, No diminished breath sounds, No respirations Cardiovascular: regular rate and rhythm, No edema Gastrointestinal: soft Neurological: No lethargic Results Result Diagram: 07/29/17 0558 08/01/17 0539 Results 24 hrs Laboratory Tests Test 07/31/17 17:25 07/31/17 20:48 08/01/17 02:03 08/01/17 05:39 Bedside Glucose 162 191 129 Sodium Level 141 Potassium Level 4.0 Chloride Level 113 H Carbon Dioxide Level 22 Anion Gap 10 Blood Urea Nitrogen 18 Creatinine 1.19 Glucose Level 129 Calcium Level 7.9 L Test 08/01/17 08:07 08/01/17 12:34 Bedside Glucose 142 165 Medications Medications Current Medications Ondansetron HCl (Zofran Inj) 4 mg Q6H PRN IV NAUSEA AND/OR VOMITING; Start 07/24/17 at 05:30 Acetaminophen (Tylenol Tab) 650 mg Q6H PRN PO PAIN LEVEL 1-3 OR FEVER; Start 07/24/17 at 05:30 Morphine Sulfate (morphine) 2 mg Q4H PRN IV PAIN LEVEL 7-10; Start 07/24/17 at 05:30 Ranitidine HCl (Zantac) 150 mg HS PO Last administered on 07/31/17 20:46; Admin Dose 150 MG; Start 07/24/17 at 21:00 Tamsulosin HCl (Flomax) 0.4 mg DAILY@21 PO Last administered on 07/31/17 20: 46; Admin Dose 0.4 MG; Start 07/24/17 at 21:00 Diagnostic Test (Pha) (Accu-Chek) 1 ea 02 XX Last administered on 08/01/17 02 :27; Admin Dose 1 EA; Start 07/25/17 at 02:00 Insulin Glargine (Lantus) 15 unit DAILY@08 SC Last administered on 08/01/17 08:14; Admin Dose 15 UNIT; Start 07/24/17 at 08:00 Polyethylene Glycol (Miralax) 17 gm BID PRN PO constipation; Start 07/24/17 at 12:00 Guaifenesin (Robitussin Liquid Cup) 200 mg Q4H PRN PO cough Last administered on 07/26/17 11:32; Admin Dose 200 MG; Start 07/24/17 at 13:30 Miscellaneous Information 1 ea NOTE XX ; Start 07/26/17 at 17:00 Glucose (Glutose) 15 gm Q15M PRN PO DECREASED GLUCOSE; Start 07/26/17 at 17:00 Glucose (Glutose) 22.5 gm Q15M PRN PO DECREASED GLUCOSE; Start 07/26/17 at 17: 00 Dextrose (D50w Syringe) 25 ml Q15M PRN IV DECREASED GLUCOSE; Start 07/26/17 at 17:00 Dextrose (D50w Syringe) 50 ml Q15M PRN IV DECREASED GLUCOSE; Start 07/26/17 at 17:00 Glucagon (Glucagen) 1 mg Q15M PRN IM DECREASED GLUCOSE; Start 07/26/17 at 17:00 Glucose (Glutose) 15 gm Q15M PRN BUCCAL DECREASED GLUCOSE; Start 07/26/17 at 17 :00 Amoxicillin/ Clavulanate Potassium (Augmentin) 500 mg BID PO Last administered on 08/01/17t 08:07; Admin Dose 500 MG; Start 07/29/17 at 11:30; Stop at 11:29 CHICHI CORBETT MD Aug 01, 2017 14:37
[2017-08-01 14:45] VITALS: BP 107/55; RESP 21
--- NOTE | 2017-08-01 15:27 | PDOCDIS ---
Discharge Instructions DIAGNOSIS Discharge Diagnosis sepsis from polymicrobial cystitis complicated by acute urinary retention, anemia of unclear etiology, acute kidney injury (resolved) CONDITION Patient Condition: Stable HOME CARE INSTRUCTIONS: Special Diet: cardiac mechanical soft FOLLOW UP/APPOINTMENTS Follow-up Plan If you feel unwell upon returning home, please call your regular doctor or 911 immediately. FOLLOW UP APPOINTMENTS Please schedule a follow up with your regular provider, Dr Pritchard, within 2 weeks [id number] [facility] [address], [place] [address]. phone # [phone] Please schedule a follow appointment with the urologist within 1-2 weeks. Your blackman catheter will have to stay in until you see the urologist Dr Castro Office Address [id number] [facility] [address] [place] [address] Office You will also be on antibiotics for another 4 days for a bladder infection Please schedule a follow up appointment with the automatic tire tester/stomach doctor within 2-4 weeks to follow up on your low blood counts Dr Dave Office Address [id number] [facility] [address] [place] [address] Office Please schedule a follow up within 2-4 weeks with the vp production/heart doctor to discuss your heart's poor pumping ability Dr Ellis Office Address [address] [place] [address] Office MELISSA RAMOS MD Aug 01, 2017 15:27
--- NOTE | 2017-08-01 15:31 | DS ---
Date/Time of Note Date/Time of Note DATE: 08/01/17 TIME: 15:28 Discharge Summary Admission/Discharge Info Admit Date/Time Jul 23, 2017 at 20:11 Discharge Date/Time Discharge Diagnosis sepsis from polymicrobial cystitis complicated by acute urinary retention, anemia of unclear etiology, acute kidney injury (resolved) Patient Condition: Stable Consults ID, , nephrology, cardiology Procedures 12.6 CT AP IMPRESSION: 1. QUINTANA CATHETER BALLOON NOTED WITHIN THE PENILE URETHRA. RECOMMEND READJUSTMENT. No Quintana catheter noted within the bladder. 2. Distended bladder. Prostatmegaly protruding into the base of the bladder. There is thickening of the wall the bladder, likely secondary to chronic bladder outlet obstruction. 3. Mild bilateral hydronephrosis, likely secondary to chronic bladder outlet obstruction. The left kidney is abnormal in appearance, with mild enlargement and lobulated appearance of the upper pole left kidney, containing hypodensities. Cannot exclude the possibility of underlying mass. Recommend follow-up CT or MRI with IV contrast, following a renal protocol. 4. No evidence of bowel obstruction. Stool and air noted large bowel suggestive of constipation. No definitive colonic mass noted at this time. If clinical suspicion remains recommend follow-up colonoscopy. 5. Diffuse atherosclerosis of the aorta. 6. Generalized anasarca. 7. Bilateral lower lobe consolidation and moderate to large pleural effusions. Cardiomegaly. 12.6 DAVION IMPRESSION: 1. Benign left renal cysts. 2. Nonobstructing left renal calculi. 3. Bilateral hyperechoic kidneys consistent with medical renal disease. 4. Large amount of debris or blood products in the bladder. 12.6 carotid dopplers IMPRESSION: No evidence of a hemodynamically significant carotid stenosis. 12.6 TTE Conclusions 1. The left ventricle is normal in size with severely reduced systolic function. There is global hypokinesis. 2. Estimated left ventricular ejection fraction of 20-25%. 3. Mild to moderate mitral regurgitation. 12.5 NCCT head IMPRESSION: 1. No acute intracranial hemorrhage or mass effect. 2. 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 3. Right temporal cortical encephalomalacia is probably a sequela of prior trauma and/or infarct. 4. Chronic bilateral basal ganglia , left thalamic, and bilateral cerebellar lacunar infarcts. 12.5 CXR IMPRESSION: 1. Atelectasis at the lung bases. 2. Cardiomegaly and atherosclerosis. 3. Small bilateral pleural effusions. 4. Otherwise unremarkable chest radiograph. 12.5 blood culture ng 2/2 12.5 urine culture Microbiology URINE CULTURE Final Organism 1 ESCHERICHIA COLI COLONY COUNT >100,000 CFU/ml Organism 2 ENTEROCOCCUS SPECIES COLONY COUNT >100,000 CFU/ml Organism 3 PROTEUS MIRABILIS COLONY COUNT >100,000 CFU/ml E COLI ENT SPS P. MIRAB M.I.C. RX M.I.C. RX M.I.C. 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 He said he felt dizzy and as a result he fell down heating his forehead against the concrete. He denied loss of consciousness. He also denied focal weakness, chest pain, shortness of breath. When he presented to the ER, he was hypotensive with the lowest blood pressure documented being 79/48. Labs shows hemoglobin of 8, bicarb 19, creatinine 3.7 and a BUN 71. Initial lactic acid was 2.9 with repeat being 1.6. He denied history of kidney disease. His urine was noted to be pretty much all pus. Urinalysis is consistent with UTI. CT of the head was negative for acute findings. Hospital Course 89 yo M with presumed hx dementia [facility] following a [facility]. Hospital stay notable for sepsis 2/2 UTI, anemia concern for GI source and TANNER. TANNER resolved with conservative management (IV fluids). Regarding pt's sepsis, urine culture results as above. ID was consulted. Pt initially on IV antibiotics, transitioned to PO for a total of 11 days of antimicrobials. Regarding pt's AUR, quintana was placed. DW prior to discharge, quintana is to remain in place and pt will f/u with for voiding trial. Imaging here also with incidental finding of possible L kidney mass v hydro. MRI ordered prior to transfer to ARU. I alerted hospitalist who will follow patient at ARU and will also personally follow up on these results Pt anemic to hgb 7s during his stay. FOBT negative. GI consulted for possible endoscopies but pt refused. Pt is to follow up in the outpatient setting regarding his anemia. Pt had TTE notable for severely depressed EF (20-25%). Unclear from patient or PCPs office if this is new or old. Pt seen by cardiology which advised bb/acei as BP allowed, however BP unable to tolerate at time of discharge. As pt refusing endoscopies, asa also deferred. I personally contacted PCP's office and made them aware of the above information. copy of dc summary also faxed to PCP. Pt also being discharged to ARU I discussed all of the above and the importance of follow up with PCPs and specialists with the patient at length prior to discharge who voiced understanding. I also left 2 voicemails with his girlfriend regarding pt's follow up needs. PCP FOLLOW UPS f/u referral for acute urinary retention f/u CHF, consider bb/acei/asa f/u with GI for anemia Home Meds Active Scripts Amoxicillin/Potassium Clav (Amox-Clav 500-125 mg Tablet) 500-125 mg Tab, 500 MG PO BID for 4 Days, #8 TAB Prov:MELISSA RAMOS MD 07/30/17 Reported Medications Canagliflozin (Invokana) 300 Mg Tablet, 300 MG PO DAILY, TAB 07/23/17 Sitagliptin Phos-Metformin Hcl (Janumet XR) 100-1,000 Mg Tbmp.24hr, 1 TAB PO WITH DINNER, #30 TAB 07/23/17 Tamsulosin Hcl* (Tamsulosin Hcl*) 0.4 Mg Cap.er.24h, 0.4 MG PO DAILY, CAP 07/23/17 Ranitidine Hcl* (Ranitidine Hcl*) 150 Mg Tablet, 150 MG PO HS, #30 TAB 07/23/17 Glyburide* (Glyburide*) 5 Mg Tablet, 5 MG PO WITH BREAKFAST, #30 TAB 07/23/17 Follow-up Plan If you feel unwell upon returning home, please call your regular doctor or 911 immediately. FOLLOW UP APPOINTMENTS Please schedule a follow up with your regular provider, Dr Pritchard, within 2 weeks [address] [facility] [address], [place] [address]. phone # [phone] Please schedule a follow appointment with the urologist within 1-2 weeks. Your quintana catheter will have to stay in until you see the urologist Dr Pace Office Address [address] [facility] [facility] [address] [place] [address] Office You will also be on antibiotics for another 4 days for a bladder infection Please schedule a follow up appointment with the veneer slicing machine operator/stomach doctor within 2-4 weeks to follow up on your low blood counts Dr Dave Office Address [address] [facility] [address] [place] [address] Office Please schedule a follow up within 2-4 weeks with the companion caregiver/heart doctor to discuss your heart's poor pumping ability Dr Edwards Office Address [address] [place] [address] Quinones: p [phone] fax [phone] Pending Labs Laboratory Tests Test 07/31/17 17:25 07/31/17 20:48 08/01/17 02:03 08/01/17 05:39 Bedside Glucose 162mg/dL (70-220) 191mg/dL (70-220) 129mg/dL (70-220) Sodium Level 141mmol/L (135-144) Potassium Level 4.0mmol/L (3.5-5.1) Chloride Level 113mmol/L (97-110) Carbon Dioxide Level 22mmol/L (21-31) Anion Gap 10 (8-16) Blood Urea Nitrogen 18mg/dl (7-20) Creatinine 1.19mg/dl (0.61-1.24) Glucose Level 129mg/dl (70-220) Calcium Level 7.9mg/dl (8.4-10.2) Test 08/01/17 08:07 08/01/17 12:34 Bedside Glucose 142mg/dL (70-220) 165mg/dL (70-220) Copies To: CC: POPPY PACE MD; ABE EDWARDS MD; JO NGUYEN NP, ELLEN MD Aug 01, 2017 15:31
== END 2017-08-01 19:10 | DRG 872 ==
LOC: E/R 13:18 → MS4 20:11 → ICU 07-25 12:12 → TEL 07-27 15:50 → MS2 07-29 13:25
PROVIDERS: ADMIT Internal Medicine; ATTEND Internal Medicine
DX: A41.9 Sepsis, unspecified organism (principal); N17.9 Acute kidney failure, unspecified; E87.2 Acidosis; I95.9 Hypotension, unspecified; I50.22 Chronic systolic (congestive) heart failure; N13.39 Other hydronephrosis; N39.0 Urinary tract infection, site not specified; E87.1 Hypo-osmolality and hyponatremia; S09.90XA Unspecified injury of head, initial encounter; J98.11 Atelectasis; N13.8 Other obstructive and reflux uropathy; N40.1 Benign prostatic hyperplasia with lower urinary tract symptoms; N32.0 Bladder-neck obstruction; D64.9 Anemia, unspecified; E86.0 Dehydration; E11.9 Type 2 diabetes mellitus without complications; Z86.73 Personal history of transient ischemic attack (TIA), and cerebral infarction without residual deficits; W19.XXXA Unspecified fall, initial encounter; N18.9 Chronic kidney disease, unspecified; R60.1 Generalized edema; K59.00 Constipation, unspecified; B96.20 Unspecified Escherichia coli [E. coli] as the cause of diseases classified elsewhere; B95.2 Enterococcus as the cause of diseases classified elsewhere; B96.4 Proteus (mirabilis) (morganii) as the cause of diseases classified elsewhere
CPT/HCPCS: 36415; 36600; 70450; 71010; 74176; 76775; 80048; 80053; 80061; 81001; 82105; 82270; 82378; 82436; 82728; 82803; 82962; 83036; 83540; 83605; 83735; 84100; 84133; 84153; 84154; 84300; 84484; 85025; 85610; 85730; 87040; 87081; 87086; 93005; 93306; 93880; 94640; 94664; 96374; 96375; 97110; 97116; 97162; J0692; J1644; J1815; J1956; J2060; J2543; J2916; J3475; J7030; J7040

== ENCOUNTER 2017-08-01 17:22 | Inpatient (IN) | payer MEDICARE, OTHER ==
[~2017-08-01] VITALS: Ht 172.7 cm; Wt 80.5 kg
[~2017-08-01 17:22] MED LIST: AMOX1TAB9 PO; CANA300T PO; GLYB5TAB3 PO; RANI150T5 PO; SITA1TBM7 PO; TAMS0.4C2 PO
[2017-08-01 20:00] VITALS: BP 148/68; RESP 18
[2017-08-01] MEDS ORDERED: GLUCAGON 1 MG INJ IM PRN (20:30)
[2017-08-01] MEDS ORDERED: POLYETHYLENE GLYCOL 17 GM PACKET PO PRN (20:30)
[2017-08-01] MEDS ORDERED: DEXTROSE 50% 50 ML SYRINGE IV PRN ×2 (20:30)
[2017-08-01] MEDS ORDERED: GLUCOSE GEL 15 GRAM TUBE PO PRN ×2 (20:30)
[2017-08-01] MEDS ORDERED: ALBUTEROL/IPRATROPIUM (NEB) 3 ML AMP HHN PRN (20:30)
[2017-08-01] MEDS ORDERED: GLUCOSE GEL 15 GRAM TUBE BUCCAL PRN (20:30)
[2017-08-01] MEDS: ACCU-CHEK XX SCH (21:00)
[2017-08-01] MEDS ORDERED: MAGNESIUM HYDROXIDE 30ML CUP PO PRN (21:00)
[2017-08-01] MEDS ORDERED: BISACODYL 10 MG SUPP PR PRN (21:00)
[2017-08-01] MEDS: SENNA TAB PO SCH (21:05)
[2017-08-01] MEDS: TAMSULOSIN (SR) 0.4 MG CAP PO SCH (21:05)
[2017-08-01] MEDS: DOCUSATE SODIUM 100 MG CAP PO SCH (21:06)
[2017-08-01] MEDS: RANITIDINE 150 MG TAB PO SCH (21:06)
--- NOTE | 2017-08-01 21:08 | CONS ---
Date/Time of Note Date/Time of Note DATE: 08/01/17 TIME: 21:07 Assessment/Plan Assessment/Plan Chief Complaint/Hosp Course SUBJECTIVE: No acute events overnight, awake, looks comfortable no fevers MICROBIOLOGY: Urine culture growing enterococcus species and E. coli. Blood cultures since admission negative. INDWELLINGS: The patient has Pagan catheter. ANTIMICROBIALS: Augmentin ALLERGIES: NONE. PHYSICAL EXAMINATION: GENERAL: This is a well-nourished, well-developed elderly white man who is in no distress. HEENT: Head atraumatic, normocephalic. Sclerae anicteric. NECK: Supple. CHEST: Rise symmetrical. Breath sounds clear. HEART: S1, S2. ABDOMEN: Soft, bowel tones present. EXTREMITIES: Without cyanosis. Trace edema. ASSESSMENT: 1. S/p sepsis with symptomatic hypotension. 2. Polymicrobial urinary tract infection 3. Status post fall. 5. Anemia. 6. Benign prostatic hypertrophy. 7. Diabetes. 8. Acute possibly on chronic kidney disease. PLAN: Remains stable, continue present care, dc antibiotics in am Problems: Consultation Date/Type/Reason Admit Date/Time Aug 01, 2017 at 19:31 Initial Consult Date Type of Consultation: ID Exam/Review of Systems Vital Signs Vitals Vital Signs Date Time Temp Pulse Resp B/P Pulse Ox O2 Delivery O2 Flow Rate FiO2 08/01/17 20:00 98.5 85 18 148/68 98 Medications Medications Current Medications Acetaminophen (Tylenol Tab) 650 mg Q6H PRN PO PAIN LEVEL 1-3 OR FEVER; Start 08/01/17 at 20:30 Amoxicillin/ Clavulanate Potassium (Augmentin) 500 mg BID PO ; Start 08/01/17 at 21:30; Stop 08/03/17 at 11:29 Polyethylene Glycol (Miralax) 17 gm BID PRN PO constipation; Start 08/01/17 at 20:30 Ranitidine HCl (Zantac) 150 mg HS PO ; Start 08/01/17 at 21:00 Tamsulosin HCl (Flomax) 0.4 mg DAILY@21 PO ; Start 08/01/17 at 21:00 Miscellaneous Information 1 ea NOTE XX ; Start 08/01/17 at 20:30 Glucose (Glutose) 15 gm Q15M PRN PO DECREASED GLUCOSE; Start 08/01/17 at 20:30 Glucose (Glutose) 22.5 gm Q15M PRN PO DECREASED GLUCOSE; Start 08/01/17 at 20: 30 Dextrose (D50w Syringe) 25 ml Q15M PRN IV DECREASED GLUCOSE; Start 08/01/17 at 20:30 Dextrose (D50w Syringe) 50 ml Q15M PRN IV DECREASED GLUCOSE; Start 08/01/17 at 20:30 Glucagon (Glucagen) 1 mg Q15M PRN IM DECREASED GLUCOSE; Start 08/01/17 at 20: 30 Glucose (Glutose) 15 gm Q15M PRN BUCCAL DECREASED GLUCOSE; Start 08/01/17 at 20:30 Docusate Sodium (Colace) 100 mg BID PO ; Start 08/01/17 at 21:00 Senna (Senokot) 1 tab QHS PO ; Start 08/01/17 at 21:00 Bisacodyl (Dulcolax Supp) 10 mg DAILY PRN DE CONSTIPATION; Start 08/01/17 at 21:00 Magnesium Hydroxide (Milk Of Mag) 30 ml BID PRN PO CONSTIPATION; Start at 21:00 KORIN JOHNSON NP Aug 01, 2017 21:08
[2017-08-01] MEDS ORDERED: AMOXICILLIN/CLAV 500 MG TAB PO SCH (21:30)
[2017-08-01 23:05] VITALS: Ht 172.7 cm; Wt 80.5 kg
[2017-08-02] VITALS (8 sets, daily range): BP systolic 98–128; BP diastolic 56–67; PULSE 88–93; RESP 18–20
[2017-08-02] MEDS: ACETAMINOPHEN 325 MG TAB PO PRN ×2 (01:45→22:11)
[2017-08-02 07:00] LABS: BASOPHILS % 0.2 % (0.0-2.0); EOSINOPHILS % 0.7 % (0.0-7.0); HEMOGLOBIN 7.8 g/dl (14.0-18.0); LYMPHOCYTES # 1.2 10^3/ul (0.8-2.9); LYMPHOCYTES % 19.7 % (15.0-51.0); MEAN CORPUSCULAR HEMOGLOBIN 27.7 pg (29.0-33.0); MEAN CORPUSCULAR HGB CONC 31.2 g/dl (32.0-37.0); MEAN CORPUSCULAR VOLUME 88.7 fl (82.0-101.0); MEAN PLATELET VOLUME 9.2 fl (7.4-10.4); MONOCYTE # 0.4 10^3/ul (0.3-0.9); MONOCYTES % 6.4 % (0.0-11.0); NEUTROPHIL # 4.3 10^3/ul (1.6-7.5); NEUTROPHILS % 72.5 % (39.0-77.0); PLATELET COUNT 267 10^3/UL (140-415); RED BLOOD COUNT 2.82 10^6/ul (4.70-6.10); RED CELL DISTRIBUTION WIDTH 17.1 % (11.5-14.5); WHITE BLOOD COUNT 5.9 10^3/ul (4.8-10.8)
[2017-08-02 07:34] LABS: ALBUMIN 2.3 g/dl (3.3-4.9); ALBUMIN/GLOBULIN RATIO 0.58; CALCIUM 8.2 mg/dl (8.4-10.2); CREATININE 1.11 mg/dl (0.61-1.24); POTASSIUM 4.1 mmol/L (3.5-5.1); TOTAL PROTEIN 6.2 g/dl (6.1-8.1)
[2017-08-02] MEDS: ACCU-CHEK XX SCH ×4 (07:46→21:15)
[2017-08-02] MEDS: DOCUSATE SODIUM 100 MG CAP PO SCH ×2 (08:34→21:08)
--- NOTE | 2017-08-02 09:51 | CONS ---
Date/Time of Note Date/Time of Note DATE: 08/02/17 TIME: 09:36 Assessment/Plan Assessment/Plan Chief Complaint/Hosp Course 1. Status post Sepsis w/ polymicrobial cystitis -Off antibiotic course. Will monitor. 2. Acute urinary retention with bilateral hydronephrosis likely secondary to bladder outlet obstruction versus possible underlying renal mass versus #1. -Urology following- Patient with Pagan in place. -Follow-up with renal protocol MRI which has been ordered. 3. Acute kidney injury on CKD . TANNER possibly secondary to sepsis which is resolved. -Monitor renal function. 4. Congestive heart failure with last known ejection fraction 20-25%. -Consider starting low-dose Coreg. Unfortunately, patient is not a good candidate for ACEi/ARB secondary to profound hypotension with antihypertensives. -Supportive care. 5. Dementia. -Recommend outpatient neurology evaluation. -Obtain B12 level. 6. BPH -Follow-up with urology recommendations. 7. Type 2 diabetes. -Resume metformin and Tradjenta in [facility]u of [facility]. -Accu-Cheks/ISS 8. Dyslipidemia -Put patient on fish oil as he is with very low HDL and triglyceridemia. LDL acceptable range. 10. Anemia. Negative FOBT -Patient refused any further workup including endoscopy. Due to increased RDW, we will also obtain a B12 level. -At this time, recommend outpatient hematology evaluation if patient is amenable. 11. Incidental finding of left kidney mass. -Follow-up with MRI. Follow-up with urology recommendations. 12. History of CVA. Prophylaxis: Ambulation/SCDs. Social service evaluation to find out family/community supports that patient has. Needs to address goals of care as patient with multiple comorbidities and he refuses interventions and treatment. I have also d/w (Rehab MD) and possibly patient needs ECF placement with code status addressed. Chandan not quite 100% sure if patient can tolerate any further aggressive PT in the ARU. Prognosis:Poor with current comorbid conditions and patient not amenable to any aggressive medical mgmt. Will follow patient along with the rehab team. Continue current medical management.Continue with rehab activities. Approximately 60 minutes was spent on this consultation. Patient was seen in collaboration with . Problems: Consultation Date/Type/Reason Admit Date/Time Aug 01, 2017 at 19:31 Reason for Consultation Medical management Hx of Present Illness This is a 82-year-old male with a past medical history of type 2 diabetes, BPH, CVA, congestive heart failure with known ejection fraction 20-25%, anemia for which patient refused any intervention, dementia, who was admitted at [facility] secondary to mechanical fall was noted with sepsis with urinary tract infection. Patient's CT was negative for any acute intracranial events. Patient was treated with IV antibiotics. Patient also was incidentally noted with possible left kidney mass. Patient was being followed up by urology and he also had a Pagan in place. Patient was then evaluated by physical therapy and recommended comprehensive physical therapy at acute rehabilitation unit. At my encounter with the patient, patient seems very upset and did not want to participate in any PT activities and he also refuses treatments/interventions. Patient denied any chest pain, palpitation, shortness of breath, nausea, vomiting, abdominal pain, dizziness, lightheadedness, dysuria, hematuria or other constitutional symptoms. A 12 point review of system was assessed and is negative other than what is mentioned in HPI. Past Medical History See HPI Past Surgical History See HPI Past Surgical Hx: endoscopy Social History Patient denied history of alcohol, smoking or illicit drug use. Smoking Status: Never smoker Exam/Review of Systems Vital Signs Vitals Vital Signs Date Time Temp Pulse Resp B/P Pulse Ox O2 Delivery O2 Flow Rate FiO2 08/02/17 08:47 88 18 120/60 08/02/17 02:00 98.7 97 08/01/17 22:11 Nasal Cannula 2.0 Intake and Output 08/01/17 08/01/17 08/02/17 15:00 23:00 07:00 Intake Total 950 ml Balance 950 ml Exam General: Elderly male not in acute distress.. HEENT: Normocephalic, Atraumatic, No laceration or hematoma; Eyes: PEERL, Conjunctiva clear, Anicteric sclera Neck: Supple without any lymphadenopathy, nontender, no JVD, no carotid bruits, trachea midline, no thyromegaly Cardiac: S1, S2 auscultated, regular rhythm and rate, no mumurs or gallop Pulmonary: Normal respiratory effort. Chest clear to auscultation bilaterally, no adventitious breath sounds GI: Abdomen normal to inspection. Soft, non tender, non- distended, no masses, no rebound tenderness or guarding. Bowel sounds active on all four quadrants Genitourinary: Deferred Extremities: No cyanosis, clubbing, or edema. Pulses [2+] bilaterally. Full ROM on all four extremities. No focal weakness appreciated. Neurologic: Alert to person, place, time, and situation. Highly temperamental mood. Skin: Clean,dry, and intact. No ecchymosis, no rashes, or lesions Results Result Diagram: 08/02/17 0612 08/02/17 0612 Results 24 hrs Laboratory Tests Test 08/01/17 21:07 08/02/17 06:12 08/02/17 07:41 Bedside Glucose 252 H 154 White Blood Count 5.9 Red Blood Count 2.82 L Hemoglobin 7.8 L Hematocrit 25.0 L Mean Corpuscular Volume 88.7 Mean Corpuscular Hemoglobin 27.7 L Mean Corpuscular Hemoglobin Concent 31.2 L Red Cell Distribution Width 17.1 H Platelet Count 267 Mean Platelet Volume 9.2 Neutrophils % 72.5 Lymphocytes % 19.7 Monocytes % 6.4 Eosinophils % 0.7 Basophils % 0.2 Nucleated Red Blood Cells % 0.0 Neutrophils # 4.3 Lymphocytes # 1.2 Monocytes # 0.4 Eosinophils # 0.0 Basophils # 0.0 Nucleated Red Blood Cells # 0.0 Sodium Level 142 Potassium Level 4.1 Chloride Level 112 H Carbon Dioxide Level 24 Anion Gap 10 Blood Urea Nitrogen 18 Creatinine 1.11 Glucose Level 147 Calcium Level 8.2 L Total Bilirubin 0.0 L Direct Bilirubin 0.00 Indirect Bilirubin 0.0 Aspartate Amino Transf (AST/SGOT) 13 L Alanine Aminotransferase (ALT/SGPT) 17 Alkaline Phosphatase 126 H Total Protein 6.2 Albumin 2.3 L Globulin 3.90 H Albumin/Globulin Ratio 0.58 Medications Medications Current Medications Acetaminophen (Tylenol Tab) 650 mg Q6H PRN PO PAIN LEVEL 1-3 OR FEVER Last administered on 08/02/17 01:45; Admin Dose 650 MG; Start 08/01/17 at 20:30 Polyethylene Glycol (Miralax) 17 gm BID PRN PO constipation; Start 08/01/17 at 20:30 Ranitidine HCl (Zantac) 150 mg HS PO Last administered on 08/01/17 21:06; Admin Dose 150 MG; Start 08/01/17 at 21:00 Tamsulosin HCl (Flomax) 0.4 mg DAILY@21 PO Last administered on 08/01/17 21: 05; Admin Dose 0.4 MG; Start 08/01/17 at 21:00 Miscellaneous Information 1 ea NOTE XX ; Start 08/01/17 at 20:30 Glucose (Glutose) 15 gm Q15M PRN PO DECREASED GLUCOSE; Start 08/01/17 at 20:30 Glucose (Glutose) 22.5 gm Q15M PRN PO DECREASED GLUCOSE; Start 08/01/17 at 20: 30 Dextrose (D50w Syringe) 25 ml Q15M PRN IV DECREASED GLUCOSE; Start 08/01/17 at 20:30 Dextrose (D50w Syringe) 50 ml Q15M PRN IV DECREASED GLUCOSE; Start 08/01/17 at 20:30 Glucagon (Glucagen) 1 mg Q15M PRN IM DECREASED GLUCOSE; Start 08/01/17 at 20: 30 Glucose (Glutose) 15 gm Q15M PRN BUCCAL DECREASED GLUCOSE; Start 08/01/17 at 20:30 Docusate Sodium (Colace) 100 mg BID PO Last administered on 08/02/17 08:34; Admin Dose 100 MG; Start 08/01/17 at 21:00 Senna (Senokot) 1 tab QHS PO Last administered on 08/01/17 21:05; Admin Dose 1 TAB; Start 08/01/17 at 21:00 Bisacodyl (Dulcolax Supp) 10 mg DAILY PRN MD CONSTIPATION; Start 08/01/17 at 21:00 Magnesium Hydroxide (Milk Of Mag) 30 ml BID PRN PO CONSTIPATION; Start at 21:00 OJ NGUYEN NP Aug 02, 2017 09:49
[2017-08-02] MEDS: INSULIN ASPART [NOVOLOG] 3 ML PEN SC SCH ×3 (12:00→21:14)
[2017-08-02 14:44] LABS: FOLATE 4.9 ng/ml (2.8-20.0)
[2017-08-02] MEDS ORDERED: LINAGLIPTIN 5 MG TABLET PO SCH (17:35)
[2017-08-02] MEDS ORDERED: metFORMIN (XR) 500 MG TAB PO SCH (17:35)
[2017-08-02] MEDS ORDERED: INSULIN ASPART [NOVOLOG] 3 ML PEN SC ONE (18:00)
[2017-08-02] MEDS: SENNA TAB PO SCH (21:00)
[2017-08-02] MEDS: TAMSULOSIN (SR) 0.4 MG CAP PO SCH (21:08)
[2017-08-02] MEDS: RANITIDINE 150 MG TAB PO SCH (21:08)
[2017-08-03 00:30] VITALS: BP 105/77; PULSE 76; RESP 16
[2017-08-03 02:00] VITALS: BP 94/52; PULSE 72; RESP 16
[2017-08-03] MEDS ORDERED: ACCU-CHEK XX SCH (02:00)
--- NOTE | 2017-08-03 02:22 | CONS ---
DATE OF ADMISSION: 08/01/2017 DATE OF CONSULTATION: 08/02/2017 Rehabilitation Post Admission Physician Evaluation REHABILITATION IMPAIRMENT CATEGORY: Debility secondary to septic shock. ACTIVE COMORBIDITIES: 1. Blunt head trauma with facial abrasion. 2. Acute on chronic kidney injury, hydronephrosis. 3. Diabetes mellitus. 4. Urinary retention, benign prostatic hypertrophy. 5. Hyponatremia. 6. History of cerebrovascular accident by MRI. 7. Impairments in self-care, mobility and mild cognition. HISTORY OF PRESENT ILLNESS: The patient is an 82-year-old gentleman with a history of BPH, diabetes mellitus, and CVA who was admitted after a fall at home with blunt head trauma and facial abrasion. The patient reports feeling dizzy and fell down against the concrete. The patient was noted to have significant hypotension of 79/48 and further workup did reveal urosepsis in addition to acute on chronic kidney disease, cardiomegaly and significant urinary retention. The patient has been followed closely by Urology and noted for his urinary retention. The patient also noted to have possible renal mass. The patient has significant impairments in self-care and mobility as compared to baseline, and has been cleared to transfer to the rehabilitation unit for comprehensive interdisciplinary rehab care. FUNCTIONAL HISTORY: Prior to recent events, he was independent in self-care tasks and mobility. Currently, he requires minimal to moderate assist for self- care and mobility tasks. I have reviewed the preadmission screen and the patient's current functional status is consistent with the preadmission screen. SOCIAL HISTORY: The patient lives at home and hopes to return there upon discharge. The patient reportedly had a brief stay at prison facility in the recent past. PAST MEDICAL HISTORY: 1. Chronic kidney disease. 2. Diabetes mellitus. 3. History of CVA by MRI. 4. BPH. CURRENT MEDICATIONS: 1. Tylenol p.r.n. 2. Albuterol inhaler. 3. Amoxicillin 500 mg b.i.d. 4. Insulin sliding scale. 5. MiraLax p.r.n. 6. Zantac 150 at bedtime. 7. Flomax 0.4 mg p.o. daily. ALLERGIES: THE PATIENT WITH NO KNOWN DRUG ALLERGIES. PHYSICAL EXAMINATION: VITAL SIGNS: The patient is currently afebrile with stable vital signs. HEENT: The extraocular motions appear intact. The patient with notable left frontal scalp abrasion. Oropharynx clear. NECK: Supple. LUNGS: Clear anteriorly. CARDIAC: S1, S2. ABDOMEN: Soft, nontender, positive bowel sounds. NEUROLOGIC: He is awake and alert. He is oriented to person and hospital. He will follow simple 1-step commands. He demonstrates antigravity strength in bilateral upper extremity and lower extremity. Does have some impaired dynamic balance. PLAN: The patient has been admitted for comprehensive interdisciplinary acute rehab and is anticipated to tolerate 3 hours of daily therapy in divided doses for at least 5/7 days a week. The treatment plan will include: 1. Physical therapy to focus on bed mobility, transfers, and household ambulation in addition to stair mobility with the goal of having the patient reach a modified independent level. 2. Occupational therapy to focus on hygiene, grooming, dressing, bathing, and toileting activities with the goal of having the patient reach a modified independent level. 3. Speech therapy for full cognitive assessment and retraining with the goal of having the patient return to baseline cognition. 4. Rehabilitation nursing for carryover of therapeutic interventions, the goal of continent of bowel and independent with urologic management and patient education with regards to the aforementioned issues. REHABILITATION BARRIER: Urinary retention. INTERVENTION FOR BARRIER: Follow closely by Urology. ESTIMATED LENGTH OF STAY: 10 days. DISPOSITION GOAL: Home. I acknowledge that I performed a full physical examination on this patient within 24 hours of admission to the rehabilitation unit. I believe the patient is a good candidate for comprehensive interdisciplinary rehab care and is anticipated to make reasonable goals in a reasonable period of time as outlined above. Dictated By: RONAL PRECIADO/ROXY Conf#: [id number] DID#: [id number] CC: Ronal Zamora M.D.;*EndCC* MTDD
--- NOTE | 2017-08-03 02:34 | RADRPT ---
PROCEDURE: Noncontrast CT Head. CLINICAL INDICATION: Pain. TECHNIQUE: Noncontrast CT of the head was obtained. The administered radiation dose was CTDI vol = 44 mGy, DLP = 810 mGy-cm. One or more of the following dose reduction techniques were used: automate d exposure control, adjustment of the mA and/or kV according to patient size and/or use of iterative reconstruction technique. DICOM images are available. COMPARISON: 07/23/2017 FINDINGS: The ventricles and cortical sulci are moderately enlarged. There is moderate decreased attenuation within the periventricular and subcortical white matter compatible with chronic microvascular change s. Some right temporal encephalomalacia is noted. There is no acute intracranial hemorrhage or extra-ax ial fluid collection. There is no mass effect. No midline shift is identified. There is no loss of g ray-white differentiation to suggest acute infarction. The orbits are within normal limits. The paranasal sinuses are well aerated. No destructive osseous lesion is identified. IMPRESSION: No acute findings. Moderate diffuse parenchymal volume loss and chronic microvascular changes. Right temporal encephalomalacia likely due to remote infarct. RPTAT: HIKT .James Hills MD, Date Time Electronically viewed and signed by .James Hills MD, on 08/03/2017 02:33 .T/
[2017-08-03 02:39] LABS: TROPONIN-I 0.023 ng/ml (0.00-0.12)
[2017-08-03 02:45] LABS: CK-MB 1.32 ng/ml (0.0-2.4)
[2017-08-03 04:15] VITALS: BP 112/69; PULSE 72; RESP 16
--- NOTE | 2017-08-03 04:36 | EN ---
Date/Time of Note Date/Time of Note DATE: 08/03/17 TIME: 04:29 Event Note Medicine Medicine Event Note Was called to the room to the asses the patient for possible near syncope/ syncope like event. As per the RN, the rn was called into the room to help the CANCELLATION CLERK clean the patient as he had a bowel movement in bed. The patient wanted to get up for a walk, however he was told first to have himself cleaned. He was being cleaned while lying flat and then as the CANCELLATION CLERK/RN assisted him to the seated position he all of a sudden became motionless and was just staring and non responsive while supported by the bed. He remained motionless and was starring for 1 to 2 minutes. Initially a code blue was called but it was cancelled quickly as the patient returned to baseline. Of note, pulsesses were not checked prior to the code blue. Patient did not recall the event. He denied any chest pain or shortness of breath. He had carvedilol 3.125 approx 2 hrs prior. Vitals T: 96.7 axillary, HR: 93 BP: 120/65 RR: 19 Spo2: 87 on 3L. Spo2 improved to 93 on 6L. No chest pain. BP through the night was also recorded to be systolic in the 90s and 2 hours later approximately systolic was 120 without any intervention. HEENT: nc/at, HR: normal sinus rhythm, lungs: coarse breath sounds bilaterally Neuro: A&O x 3, did not assess gait secondary to the event earlier. CT head: show no acute findings. Moderate diffuse parenchymal volume loss and chronic microvascular changes. Right temporal encephalomalacia likely due to remote infarct EKG: sinus rhythm at 75 bpm with 1st degree av block. No ST elevations. First set of troponins was negative. A/P: LOC/Syncope: Check orthostatics, CBC, BMP, Lactate. Chest xray. BP has improved at this time without intervention, if it drops again will order blood cultures. Will hold flomax and coreg at this time. Discharge from [facility]hab[facility] and transfer to Tele. Greater than 45 minutes of critical care time was spent on the are and management of this patient. MICHELLE KIRKPATRICK Aug 03, 2017 04:36
[2017-08-03 05:15] VITALS: BP_SYST 100; BP_SYST 108; BP_DIAS 58; BP_DIAS 59; PULSE 68; PULSE 73; RESP 18; RESP 19
[2017-08-03] MEDS: ACCU-CHEK XX SCH (07:05)
[2017-08-03] MEDS: INSULIN ASPART [NOVOLOG] 3 ML PEN SC SCH (08:10)
[2017-08-03] MEDS: DOCUSATE SODIUM 100 MG CAP PO SCH (08:12)
--- NOTE | 2017-08-03 09:48 | DS ---
Date/Time of Note Date/Time of Note DATE: 08/03/17 TIME: 09:47 Discharge Summary Admission/Discharge Info Admit Date/Time Aug 01, 2017 at 19:31 Discharge Date/Time Aug 03, 2017 at 08:13 Discharge Diagnosis 1. ALOC/ possible syncope 2.Debility secondary to septic shock. 3. Blunt head trauma with facial abrasion. 4. Acute on chronic kidney injury, hydronephrosis. 5. Diabetes mellitus. 6. Urinary retention, benign prostatic hypertrophy, hydronephrosis, possible renal mass 7. Hyponatremia. 8. History of cerebrovascular accident by MRI. 9. Impairments in self-care, mobility and mild cognition. Patient Condition: Serious Hospital Course Patient was admitted for comprehensive interdisciplinary acute rehabilitation. Patient was noted to have episodes of agitation, but was redirectable. During therapies he was able to perform transfers and ambulation 20 feet with moderate assist. Niviaetn was noted to have episode of unresponsiveness after repositioning from supine to sitting position after a BM. A Code Blue was called, but cancelled after patient noted to return to baseline. Patient did receive hospitalist evaluation, and was monitored closely. He was noted to have further hypotension, and was transferred to the acute hospital for closer monitoring and work up. Home Meds Active Scripts Amoxicillin/Potassium Clav (Amox-Clav 500-125 mg Tablet) 500-125 mg Tab, 500 MG PO BID for 4 Days, #8 TAB Prov:MELISSA RAMOS MD 07/30/17 Reported Medications Canagliflozin (Invokana) 300 Mg Tablet, 300 MG PO DAILY, TAB 07/23/17 Sitagliptin Phos-Metformin Hcl (Janumet XR) 100-1,000 Mg Tbmp.24hr, 1 TAB PO WITH DINNER, #30 TAB 07/23/17 Tamsulosin Hcl* (Tamsulosin Hcl*) 0.4 Mg Cap.er.24h, 0.4 MG PO DAILY, CAP 07/23/17 Ranitidine Hcl* (Ranitidine Hcl*) 150 Mg Tablet, 150 MG PO HS, #30 TAB 07/23/17 Glyburide* (Glyburide*) 5 Mg Tablet, 5 MG PO WITH BREAKFAST, #30 TAB 07/23/17 Primary Care Provider Care Physician No Primary Pending Labs Laboratory Tests Test 08/02/17 11:53 08/02/17 17:33 08/02/17 21:11 08/02/17 23:36 Bedside Glucose 199mg/dL (70-220) 314mg/dL (70-220) 280mg/dL (70-220) 247mg/dL (70-220) Test 08/03/17 01:25 08/03/17 02:34 08/03/17 06:34 08/03/17 07:47 Creatinine Kinase MB (Mass) 1.32ng/ml (0.0-2.4) Troponin I 0.023ng/ml (0.00-0.12) 0.020ng/ml (0.00-0.12) Bedside Glucose 215mg/dL (70-220) 201mg/dL (70-220) RONAL JAMES MD Aug 03, 2017 09:47
--- NOTE | 2017-08-03 18:54 | RADRPT ---
Vent Rate: 71 bpm RR Interval: 0 msec [place] Interval: 228 msec QRS Duration: 126 msec QT Interval: 436 msec QTC Interval: 473 msec P-R-T Shafter: 44 - -58 - -85 degrees Sinus rhythm with 1st degree AV block Left axis deviation Right bundle branch block Inferior infarct , age undetermined Anteroseptal infarct , age undetermined Abnormal ECG Electronically Signed By: Anam Flores [id number]
== END 2017-08-03 08:13 | disposition short-term general hospital (02) | DRG 948 ==
LOC: VRC 19:31
PROVIDERS: ADMIT Physical Medicine & Rehabilitation; ATTEND Internal Medicine Pulmonary Disease
DX: R53.81 Other malaise (principal); N17.9 Acute kidney failure, unspecified; G93.89 Other specified disorders of brain; F03.90 Unspecified dementia, unspecified severity, without behavioral disturbance, psychotic disturbance, mood disturbance, and anxiety; N13.8 Other obstructive and reflux uropathy; E11.9 Type 2 diabetes mellitus without complications; D64.9 Anemia, unspecified; N28.89 Other specified disorders of kidney and ureter; R55 Syncope and collapse; N30.90 Cystitis, unspecified without hematuria; I44.0 Atrioventricular block, first degree; N18.9 Chronic kidney disease, unspecified; N40.1 Benign prostatic hyperplasia with lower urinary tract symptoms; R33.8 Other retention of urine; I69.398 Other sequelae of cerebral infarction; Z74.09 Other reduced mobility; G31.84 Mild cognitive impairment of uncertain or unknown etiology
CPT/HCPCS: 70450; 80053; 82553; 82607; 82746; 82962; 84484; 85025; 93005; 94664; 97110; 97116; 97163; 97165; 97530; J1815

== ENCOUNTER 2017-08-03 06:53 | Observation (INO) | payer MEDICARE, OTHER ==
[2017-08-03] VITALS (7 sets, daily range): BP systolic 87–110; BP diastolic 50–55; PULSE 66–90; RESP 17–19
[~2017-08-03] VITALS: Ht 172.7 cm; Wt 72.0 kg
[2017-08-03] MEDS ORDERED: DEXTROSE 50% 50 ML SYRINGE IV PRN ×2 (13:00)
[2017-08-03] MEDS ORDERED: GLUCOSE GEL 15 GRAM TUBE BUCCAL PRN (13:00)
[2017-08-03] MEDS ORDERED: GLUCOSE GEL 15 GRAM TUBE PO PRN ×2 (13:00)
[2017-08-03] MEDS ORDERED: GLUCAGON 1 MG INJ IM PRN (13:00)
[2017-08-03] MEDS: INSULIN ASPART [NOVOLOG] 3 ML PEN SC SCH ×3 (13:23→21:03)
--- NOTE | 2017-08-03 15:15 | HP ---
Date/Time of Note Date/Time of Note DATE: 08/03/17 TIME: 15:10 Assessment/Plan VTE Prophylaxis VTE Prophylaxis Intervention: SCD's Lines/Catheters IV [facility] Type [facility] Peripheral IV Urinary Cath still in place: Yes Reason Cath still needed: urinary retention Assessment/Plan Assessment/Plan 82 yo M with known systolic HF recently admitted for sepsis from UTI, anemia from possible GI source, AUR warranting blackman placement transferred from ARU after episode of presyncope. Suspect vasovagal from flomax. PLAN no flomax check orthostatics likely back to ARU in AM HPI/ROS Admit Date/Time Admit Date/Time Aug 03, 2017 at 09:20 Hx of Present Illness CC hypotension HPI 82 yo M with CHF with severely depressed EF (20-25%) discharged from here to ARU 2 days ago following an admission for a fall, sepsis 2/2 UTI, anemia from possible GI source, AUR warranting blackman and TANNER which resolved. Per ARU notes, pt had an episode of decreased responsiveness last night. SBP at that time in the 90s. Pt transferred here for further management. Pt states he's been feeling lightheaded with standing over past few days PMH/Family/Social Past Surgical History Past Surgical Hx: endoscopy Social History Smoking Status: Never smoker Exam/Review of Systems Vital Signs Vitals Vital Signs Date Time Temp Pulse Resp B/P Pulse Ox O2 Delivery O2 Flow Rate FiO2 08/03/17 12:06 66 08/03/17 11:35 98.0 19 93/52 90 08/03/17 08:30 Nasal Cannula 4.0 Exam Exam nad CN 2-12 grossly intact no mrg lungs clear abd soft no rashes Medications Medications Current Medications Diagnostic Test (Pha) (Accu-Chek) 1 ea 02 XX ; Start 08/04/17 at 02:00 Miscellaneous Information 1 ea NOTE XX ; Start 08/03/17 at 13:00 Glucose (Glutose) 15 gm Q15M PRN PO DECREASED GLUCOSE; Start 08/03/17 at 13:00 Glucose (Glutose) 22.5 gm Q15M PRN PO DECREASED GLUCOSE; Start 08/03/17 at 13: 00 Dextrose (D50w Syringe) 25 ml Q15M PRN IV DECREASED GLUCOSE; Start 08/03/17 at 13:00 Dextrose (D50w Syringe) 50 ml Q15M PRN IV DECREASED GLUCOSE; Start 08/03/17 at 13:00 Glucagon (Glucagen) 1 mg Q15M PRN IM DECREASED GLUCOSE; Start 08/03/17 at 13: 00 Glucose (Glutose) 15 gm Q15M PRN BUCCAL DECREASED GLUCOSE; Start 08/03/17 at 13:00 MELISSA RAMOS MD Aug 03, 2017 15:15
[2017-08-03 16:23] LABS: BASOPHILS % 0.2 % (0.0-2.0); EOSINOPHILS % 0.6 % (0.0-7.0); HEMATOCRIT 31.1 % (42.0-52.0); HEMOGLOBIN 9.3 g/dl (14.0-18.0); LYMPHOCYTES # 0.9 10^3/ul (0.8-2.9); LYMPHOCYTES % 17.3 % (15.0-51.0); MEAN CORPUSCULAR HEMOGLOBIN 26.8 pg (29.0-33.0); MEAN CORPUSCULAR HGB CONC 29.9 g/dl (32.0-37.0); MEAN CORPUSCULAR VOLUME 89.6 fl (82.0-101.0); MEAN PLATELET VOLUME 9.3 fl (7.4-10.4); MONOCYTE # 0.3 10^3/ul (0.3-0.9); MONOCYTES % 5.9 % (0.0-11.0); NEUTROPHIL # 3.9 10^3/ul (1.6-7.5); NEUTROPHILS % 75.6 % (39.0-77.0); PLATELET COUNT 268 10^3/UL (140-415); RED BLOOD COUNT 3.47 10^6/ul (4.70-6.10); RED CELL DISTRIBUTION WIDTH 17.2 % (11.5-14.5); WHITE BLOOD COUNT 5.1 10^3/ul (4.8-10.8)
[2017-08-03 16:39] LABS: CALCIUM 8.7 mg/dl (8.4-10.2); CREATININE 1.12 mg/dl (0.61-1.24); POTASSIUM 4.6 mmol/L (3.5-5.1)
[2017-08-03] MEDS: RANITIDINE 150 MG TAB PO SCH (20:55)
[2017-08-03] MEDS: AMOXICILLIN/CLAV 500 MG TAB PO SCH (20:55)
[2017-08-04] VITALS (10 sets, daily range): BP systolic 90–105; BP diastolic 48–57; PULSE 70–87; RESP 16–18
[2017-08-04] MEDS: ACCU-CHEK XX SCH (02:00)
[2017-08-04] MEDS: INSULIN ASPART [NOVOLOG] 3 ML PEN SC SCH ×4 (07:25→20:58)
[2017-08-04] MEDS: AMOXICILLIN/CLAV 500 MG TAB PO SCH ×2 (08:09→20:46)
--- NOTE | 2017-08-04 08:23 | RADRPT ---
PROCEDURE: XR Chest. CLINICAL INDICATION: Dyspnea. TECHNIQUE: Single frontal chest x-ray. COMPARISON: 07/23/2017 FINDINGS: Severe increased vascular congestion and pulmonary edema is seen. The heart is now obscured. Finding s are most consistent with severe CHF, worse over time. Significant bilateral pleural effusions are seen, large in size and worse when compared to the previous study. Aortic atherosclerotic vascular calcifications are identified. There is no pneumothorax. The surrounding osseous structures are carlito rkable for benign chronic senescent changes. IMPRESSION: 1. Severe CHF, markedly worse when compared to the prior study. 2. Large bilateral pleural effusions, also worse since the prior study. 3. Obscured cardiac silhouette at this time. 4. Atherosclerotic vascular calcifications. 5. Overall appearances are markedly worse since the prior study and severe in degree at this time. Aggressive treatment and short-term follow-up is advised. RPTAT: PP .Parmjit Booth MD, MD Date Time Electronically viewed and signed by .Parmjit Booth MD, on 08/04/2017 08:22 .B/
--- NOTE | 2017-08-04 16:12 | PN ---
Date/Time of Note Date/Time of Note DATE: 08/04/17 TIME: 16:11 Assessment/Plan VTE Prophylaxis VTE Prophylaxis Intervention: SCD's Lines/Catheters IV Catheter Type (from Nrs[facility]): Peripheral IV Urinary Cath still in place: Yes Reason Cath still needed: urinary retention Assessment/Plan Assessment/Plan 82 yo M with known systolic HF recently admitted for sepsis from UTI, anemia from possible GI source, AUR warranting blackman placement transferred from ARU after episode of presyncope. Suspect vasovagal from flomax. RESOLVED with holding flomax PLAN #sepsis from UTI complicated by AUR: sp abx #h/o BPH: NO FLOMAX #chronic systolic HF: bb/acei as tolerated, outpatient cardiology follow up #microcytic anemia: GI advised inpatient endoscopy, pt refused #DM2 with a1c 7.6: cont insulin #possible renal mass: refused imaging. consider trying again closer to dc downgrade from tele to med surg ARU PROJECT MANAGEMENT PROFESSOR does not think pt should return to ARU as was not participating in therapy. CM cs placed for SNF. new PT eval Subjective 24 Hr Interval Summary Free Text/Dictation Feels ok. Refused AM labs Exam/Review of Systems Vital Signs Vitals Vital Signs Date Time Temp Pulse Resp B/P Pulse Ox O2 Delivery O2 Flow Rate FiO2 08/04/17 12:58 82 08/04/17 11:50 97.5 16 90/51 91 08/04/17 08:00 Nasal Cannula 4.0 Intake and Output 08/03/17 08/03/17 08/04/17 15:00 23:00 07:00 Intake Total 800 ml 480 ml Output Total 350 ml 400 ml Balance 450 ml 80 ml Exam nad no mrg lungs clear abd soft blackman in place Results Result Diagram: 08/03/17 1558 08/03/17 1558 Results 24 hrs Laboratory Tests Test 08/03/17 17:38 08/03/17 20:57 08/04/17 01:41 08/04/17 07:22 Bedside Glucose 232 H 281 H 131 233 H Test 08/04/17 11:45 Bedside Glucose 221 H Medications Medications Current Medications Diagnostic Test (Pha) (Accu-Chek) 1 ea 02 XX ; Start 08/04/17 at 02:00 Miscellaneous Information 1 ea NOTE XX ; Start 08/03/17 at 13:00 Glucose (Glutose) 15 gm Q15M PRN PO DECREASED GLUCOSE; Start 08/03/17 at 13:00 Glucose (Glutose) 22.5 gm Q15M PRN PO DECREASED GLUCOSE; Start 08/03/17 at 13: 00 Dextrose (D50w Syringe) 25 ml Q15M PRN IV DECREASED GLUCOSE; Start 08/03/17 at 13:00 Dextrose (D50w Syringe) 50 ml Q15M PRN IV DECREASED GLUCOSE; Start 08/03/17 at 13:00 Glucagon (Glucagen) 1 mg Q15M PRN IM DECREASED GLUCOSE; Start 08/03/17 at 13: 00 Glucose (Glutose) 15 gm Q15M PRN BUCCAL DECREASED GLUCOSE; Start 08/03/17 at 13:00 Amoxicillin/ Clavulanate Potassium (Augmentin) 500 mg BID PO Last administered on 08/04/17 08:09; Admin Dose 500 MG; Start 08/03/17 at 21:00; Stop at 20:59 Ranitidine HCl (Zantac) 150 mg HS PO Last administered on 08/03/17 20:55; Admin Dose 150 MG; Start 08/03/17 at 21:00 MELISSA RAMOS MD Aug 04, 2017 16:12
[2017-08-04] MEDS ORDERED: FUROSEMIDE 40 MG INJ IV ONE (19:00)
[2017-08-04] MEDS: RANITIDINE 150 MG TAB PO SCH (20:47)
[2017-08-05] VITALS: BP 102/55; RESP 18
[2017-08-05] MEDS: ACCU-CHEK XX SCH (02:14)
[2017-08-05 04:00] VITALS: BP 98/56; RESP 18
--- NOTE | 2017-08-05 07:49 | QN ---
Documentation Comment I was called out of the emergency department to room 516A for a CODE BLUE event. The patient was receiving high-quality CPR and being bagged by respiratory therapy. I immediately took over as the CODE BLUE leader and ran the code. Please see the code sheet for full details. The patient received multiple rounds of epinephrine, 1 amp of bicarbonate, and intubation. The final results of the CODE BLUE was patient was pronounced at 0740. HPI: Please note the history and physical exam is limited as the patient is receiving CPR at this time. The patient is in full cardiac arrest. Physical exam: The patient is being bagged by respiratory therapy. There is no movement. GCS is 3. Endotracheal Intubation by me: Pre assessment performed. Pre-oxygenation performed with 100% oxygen RSI: Performed w/o complication or hypoxic events. Medications as ordered. Blade: MAC 4 Glidescope ET Tube: 7.5 cm Depth: 22 cm at the lip Intubation confirmed by colorimetric CO2, equal breath sounds, quiet over the stomach. MARGO LOUIS MD Aug 05, 2017 07:49
--- NOTE | 2017-08-05 15:00 | DES ---
Date/Time of Note Date/Time of Note DATE: 08/05/17 TIME: 14:44 Discharge/ Summary Admission/Discharge Info Admit Date/Time Aug 03, 2017 at 09:20 Discharge Date/Time Aug 05, 2017 at 11:00 Final Diagnosis cardiac arrest Preliminary Cause of cardiac arrest Hx of Present Illness CC hypotension HPI 82 yo M with CHF with severely depressed EF (20-25%) discharged from here to ARU 2 days ago following an admission for a fall, sepsis 2/2 UTI, anemia from possible GI source, AUR warranting blackman and TANNER which resolved. Per ARU notes, pt had an episode of decreased responsiveness last night. SBP at that time in the 90s. Pt transferred here for further management. Pt states he's been feeling lightheaded with standing over past few days Hospital Course M with known systolic HF recently admitted for sepsis from UTI, anemia from possible GI source, AUR warranting blackman placement transferred from ARU after episode of presyncope. Suspected vasovagal from flomax. Pt was doing ok during the day 08.04, in the evening noted to be needing additional oxygen. Pt personally examined, noted to have pulmonary crackles, lasix given with significant UOP. per documentation, appears pt's O2 needs increased overnight. Does not appear physician was notified. As morning approached O2 requirement came down, however pt refusing O2. Per documentation, pt found unresponsive on nurse eval at 725am. Code blue was called. CPR performed for 15 minutes, but no ROSC achieved. Pt pronounced by ER physician who was running the code at 740am. Family notified by chiki Pending Labs/Cultures Laboratory Tests Test 08/04/17 17:07 08/04/17 20:45 08/05/17 02:08 08/05/17 07:27 Bedside Glucose 204mg/dL (70-220) 228mg/dL (70-220) 186mg/dL (70-220) 196mg/dL (70-220) MELISSA RAMOS MD Aug 05, 2017 15:00
== END 2017-08-05 11:00 | disposition expired ==
LOC: TEL 09:20 → INTOOBSV 09:20 → TEL 16:51
PROVIDERS: ADMIT Family Medicine; ATTEND Family Medicine
DX: I46.9 Cardiac arrest, cause unspecified (principal); I50.22 Chronic systolic (congestive) heart failure; E11.9 Type 2 diabetes mellitus without complications; N40.0 Benign prostatic hyperplasia without lower urinary tract symptoms
CPT/HCPCS: 31500; 71010; 80048; 82962; 85025; G0378; J1815; J1940; 92950; 99217